=== PATIENT | female | born 1970 | race Caucasian/White ===

== ENCOUNTER 2023-05-27 16:42 | Emergency (ER) | payer OTHER ==
--- OUTSIDE RECORDS SUMMARY | 2023-05-27 16:51 | XMS REPORT | Continuity of Care Document ---
:1970 Author Organization [facility] t Address [address] [place] [address] Care Team Providers Name Role Phone PCP, PATIENT DOES NOT HAVE A Primary Care Physician UnavailCHARITO Negro Attending Clinician Unavailable LINDA DELEON Attending Clinician Unavailable EMILIANO Attending Clinician Unavailable Ky LAIRD, Miguel Angel Cervantes Attending Clinician MEHOP_ELIGIBILITY Attending Clinician Unavailable Radha Waddell Attending Clinician Unknown, Attending Attending Clinician Unavailable RADHA LOUIS Attending Clinician Unavailable Doctor Unassigned, [place] Attending Clinician Unavailable Mela Courtney MA Attending Clinician Unavailable Killian España Attending Clinician Unavailable Noa Rome MA Attending Clinician Unavailable Holly Thurman Attending Clinician [phone] Remy Nunez Attending Clinician [phone] TIMOTHY Attending Clinician Unavailable Anya Tate Attending Clinician [phone] KAROLINE HARRISON Attending Clinician Unavailable Gabriela Mosher Attending Clinician [phone] Song Silveira Attending Clinician Unavailable KARIS CAZARES Attending Clinician Unavailable Debbie Alcocer Anavella Attending Clinician TRISTIAN Ayala Attending Clinician Unavailable ENIO ACKERMAN Attending Clinician Unavailable CHANTE MILLS M.D. Attending Clinician Unavailable INDRA EMANUEL, PHD Attending Clinician Unavailable INDRA ELLIOTT, LULÚ Attending Clinician Unavailable SHAN BURGOS M.D. Attending Clinician Unavailable CHRETIEN_F Admitting Clinician Unavailable MEHOP_ELIGIBILITY Admitting Clinician Unavailable SCHAUBROECK_L Admitting Clinician Unavailable Tara Alcocer Anav Admitting Clinician Unavailable ENIO ACKERMAN Admitting Clinician Unavailable Payers Payer Name Policy Type Policy Number Effective Date Expiration Date S chi MEDICARE PART A AND [id number] 2011 B 00:00:00 [place] [id number] 2011 NOVSetJamS aiHit - 00:00:00 [facility] [place]ICARE [place]: [id number] 2011 NOVITAS aiHit 00:00:00 [place] [id number] 2011 NOVSetJamS aiHit - 00:00:00 [facility] [id number] (MEDICARE REPLACEMENT/ADVANTA GE - PPO) [facility] [id number] Problems Condition Condition Condition Status Onset Resolution Last Treating Co mments Source Name Details Category Date Date Treatment Clinician Date Acute Acute Problem Active [place] sinusitis Sinusitis 8-24 Comm [facility] 00:[facility]: ty [facility] Nasal Nasal Problem Active [place] discharge Discharge 8-24 Comm uni present Present 00:00: ty 00 [facility] Dysuria Dysuria Problem Active [place] 8-24 Communi 00:00: ty [facility] Edema of Edema of Problem Active [place] lower Lower 6-15 [facility] extremity Extremity 00:00: ty 00 [facility] Peripheral Peripheral Problem Active [facility] edema Edema 4-24 Communi 00:00: ty 00 [facility] Genital Genital Problem Active 2021-09 [place] herpes Herpes 1-16 Communi simplex Simplex 00:00: ty 00 [facility] Gastroesop Gastroesop Problem Active 2021-09 [facility] hageal hageal 1-16 Communi reflux Reflux 00:00: ty disease Disease 00 [facility] Motion Motion Problem Active 2021-09 [place] sickness Sickness 0-12 Commun i 00:00: ty 00 [facility] Nausea Nausea Problem Active [place] 9-01 Communi 00:00: ty 00 [facility] Candidiasi Candidiasi Problem Active [facility] s of s of 8-23 Communi vagina Vagina 00:00: ty 00 [facility] Iron Iron Problem Active [place] deficiency Deficiency 5-18 Co mmuni 00:00: ty 00 [facility] Hyponatrem Hyponatrem Problem Active [facility] ia ia 5-18 Communi 00:00: ty 00 [facility] Hypokalemi Hypokalemi Problem Active [facility] a a 5-18 Communi 00:00: ty 00 [facility] RLS RLS Disease Active [facility] (restless (restless 2-15 st legs legs 00:00: Hospita syndrome) syndrome) 00 l Other Other Disease Active 2020-09 [facility] interverte interverte 0-02 He alth bral disc bral disc 00:00: degenerati degenerati 00 on, lumbar on, lumbar region region Dysphagia Dysphagia Disease Active 2020-09 [facility] 0-02 Health 00:00: 00 Functional Functional Problem Active [facility] nausea Nausea 9-21 Communi 00:00: ty 00 [facility] Hyperlipid Hyperlipid Problem Active [facility] emia emia 4-12 Communi 00:00: ty 00 [facility] Hypothyroi Hypothyroi Problem Active [facility] dism dism 3-18 Communi 00:00: ty 00 [facility] Vitamin D Vitamin D Problem Active [facility] peri deficiency Deficiency 3-18 Co mmuni 00:00: ty 00 [facility] Body mass Body Mass Problem Active [facility] peri index 30+ Index 30+ 3-18 Comm uni - obesity - Obesity 00:00: ty 00 [facility] Bipolar Bipolar Problem Active [place] disorder Disorder 3-18 Commun i 00:00: ty 00 [facility] Chronic Chronic Problem Active [place] anxiety Anxiety 3-18 Communi 00:00: ty 00 [facility] Depressive Depressive Problem Active [facility] disorder Disorder 3-18 Commun i 00:00: ty 00 [facility] Obstructiv Obstructiv Problem Active [facility] e sleep e Sleep 3-18 Communi apnea of Apnea of 00:00: ty adult Adult 00 [facility] Essential Essential Problem Active Swe peri hypertensi Hypertensi 3-18 Co mmuni on on 00:00: ty 00 [facility] Multiple Multiple Problem Active [place] gastric Gastric 3-18 Communi ulcers Ulcers 00:00: ty 00 [facility] Sliding Sliding Problem Active [place] hiatus Hiatus 3-18 Communi hernia Hernia 00:00: ty 00 [facility] Fibromyalg Fibromyalg Problem Active [facility] ia ia 3-18 Communi 00:00: ty 00 [facility] History of History of Problem Active [facility] anemia Anemia 3-18 Communi 00:00: ty 00 [facility] Chronic Chronic Disease Active 2018-09 [facility] insomnia insomnia 0-08 st 00:00: Hospita 00 l Dyspnea Dyspnea Disease Active [facility] 7-23 st 00:00: Hospita 00 l Obstructiv Obstructiv Disease Active M ethodi e sleep e sleep 723 st apnea, [facility], [facility] Bipolar II Bipolar II Problem Active M atagor disorder Disorder 5-20 [facility] Pneumonia Pneumonia Disease Active [facility] Essential Essential Disease Active [facility] hypertensi hypertensi 8-01 He alth on on 00:00: 00 Depression Depression Problem Active U T with with [email or web address] Physic i anxiety anxiety ans Chronic Chronic Problem Active [facility] back pain back pain [email or web address] Physici ans Benign Benign Problem Active [facility] essential essential [email or web address] Physici hypertensi hypertensi an s on on No known No known Disease Unive rs active active ity of problems problems [place] [facility] Allergies, Adverse Reactions, Alerts Allergy Allergy Status Severity Reaction(s) Onset Inactive Treating Comm ents Source Name Type Date Date Clinician Ofloxaci Propensi Active Method i n ty to 03-28 st adverse 00:00: Hospita reaction 00 l s to drug Azithrom Drug Active Other (See Not [facility] Intolera Comments) 12-01 effective Lucia kes (Bulk) nce 00:00: Medical 00 Center Ofloxaci Drug Active Hives [facility] Allergy [facility] AZITHROM Allergy Active Med Other [facility] YCIN -28 [facility] (BULK) 00:00: Medical 00 Center OFLOXACI Allergy Active Med Hives [facility] 00[facility] Center Erythrom Allergy Active Unknown [facility] ycin to 10-06 Health substanc 00:00: e 00 Ofloxaci Propensi Active Hives 2016-09 Univer s n ty to 1-10 ity of adverse 00:00: [place] reaction 00 Medical s Branch Macrolid Propensi Active Unknown - 2016-09 Uni vers e ty to See comments 1-10 ity of Antibiot adverse 00:00: [place] ics reaction 00 Medical s Branch OFLOXACI DRUG Active Hives 2016-09 Univers N INGREDI 1-10 ity of 00:00: [place] 00 Medical Branch MACROLID Drug Active Unknown-Cmnt 2016-09 Un david E Class 1-10 ity of ANTIBIOT 00:00: [place] ICS 00 Medical Branch Ofloxaci Allergy Active Rash 2016-09 UT n to 1-10 Health substanc 00:00: e 00 Floxin Allergy Active Moderate Hives [place] to Communi substanc ty e Hospita l Clinics Family History Family Member Diagnosis Comments Start Date Stop Date Source Mother Family history of [facility] diabetes mellitus Father Family history of [facility] essential hypertension [facility] Hy[facility] mother [facility] Paternal Cancer [facility] Paternal Melanoma [facility] Social History Social Habit Start Date Stop Date Quantity Comments Source Sexual orientation 2020-02-19 Heterosexual Meth odist 16:22:17 (finding) Hospital History of tobacco Current smoker [facility] use Hospital History SDOH [facility] Alcohol Std Drinks Medica l Center History SDOH [facility] Alcohol Binge Medical Jasmin ter History SDOH [facility] Alcohol Comment Medical C enter History of Social 2023-01-06 2023-01-[address] function 00:00:00 00:00:00 Hospital Exposure to 2022-07-08 2022-07-18 Not sure [facility]-CoV-2 (event) 00:00:00 09:33:00 [facility] Tobacco Comment 2021-06-06 2021-06-06 + vap [facility] 00:00:00 00:00:00 Tobacco use and 2019-03-28 2019-03-28 Smokeless tobacco Me thodist exposure 00:00:00 00:00:00 non-user Hospital History SDOH 2018-12-01 2018-12-[address] [facility] Alcohol Frequency 00:00:00 00:00:00 [facility] Cigarettes smoked 2018-12-01 2018-12-[address] [facility] current (pack per 00:00:00 00:00:00 [facility] day) - Reported Alcohol intake 2018-12-01 2018-12-01 Current non-drinker [facility] 00:[facility]00 [facility] (finding) Sex Assigned At [address] [facility] kes 00:00:00 00:00:00 [facility] Smoking Status Start Date Stop Date Source Tobacco smoking [facility] xa consumption unknown Medical Bran ch Never smoked tobacco [facility] Ex-smoker 2019-03-28 00:00:00 2019-03-28 [facility] 00:[facility]:00 Medications Ordered Filled Start Stop Current Ordering Indication Dosage Frequency Signature Comments Components Source Medication Medication Date Date Medication? Clinician (SIG) Name Name traZODone Yes 50mg QD Take 1 Method i (DESYREL) 9-11 tablet (50 st 50 MG 00:00: mg total) Hospita tablet 00 by mouth l nightly. levothyroxi 2022- No 50ug QD Take 1 Met hodi ne -17 05-17 tablet (50 st (SYNTHROID, 18:48: 00:00 mcg total) Hospita LEVOXYL) 50 49 :00 by mouth l mcg tablet daily. dexlansopra 2022-0 2022- No 60mg QD Take 1 Met hodi zole 5-17 05-[address] (DEXILANT) 18:48: 00:00 (60 mg [facility] 60 mg 46 :00 total) by l capsule mouth daily. hydroCHLORO 3-0 Yes Q24H daily. Meth vinicio thiazide 5-03 st (HYDRODIURI 11:09: Hospit a L) 12.5 MG 13 l tablet sucralfate 2022-0 Yes 1g Q.25D Take 1 Meth vinicio (CARAFATE) 5-03 tablet (1 st 1 gram 11:07: g total) Hospita tablet 16 by mouth 4 l (four) times a day. promethazin 0 Yes 25mg Q6H Take 1 Meth vinicio e 5-03 tablet (25 st (PHENERGAN) 11:07: mg total) H ospita 25 MG 16 by mouth l tablet every 6 (six) hours as needed for nausea or vomiting. doxepin HCl 0 Yes 20mg QD Take 20 mg [facility] (DOXEPIN 5-[address] ORAL) 11:07: daily. Hospita 16 l pramipexole 0 Yes TAKE 1 Meth vinicio (MIRAPEX) 1 5-[address] MG tablet 00:00: MOUTH Hospita 00 THREE l TIMES DAILY EVERY 8 HOURS traZODone 2022-0 2022- No 50mg QD Take 1 Metho di (DESYREL) 5-03 09-11 tablet (50 st 50 MG 00:00: 00:00 mg total) Hospit a tablet 00 :00 by mouth l nightly. traZODone 3-0 2022- No 50mg QD Take 1 Metho di (DESYREL) 4-20 05-03 tablet (50 st 50 MG 00:00: 00:00 mg total) Hospit a tablet 00 :00 by mouth l nightly. traZODone 3-0 3- No TAKE 1 Metho di (DESYREL) 3-30 04-20 TABLET(50 st 50 MG 00:00: 00:00 MG) BY Hospita tablet 00 :00 MOUTH l EVERY NIGHT traZODone 2022- No TAKE 1 Metho di (DESYREL) 11-05- TABLET(50 st 50 MG 00:00: 00:00 MG) BY Hospita tablet 00 :00 MOUTH l EVERY NIGHT traZODone 2022- No TAKE 1 Metho di (DESYREL) 10-07- TABLET(50 st 50 MG 00:00: 00:00 MG) BY Hospita tablet 00 :00 MOUTH l EVERY NIGHT pramipexole 2022- No TAKE 1 Met hodi (MIRAPEX) 1 09-28 05-[address] MG tablet 00:00: 00:00 MOUTH Hospit a 00 :00 THREE l TIMES DAILY EVERY 8 HOURS traZODone 2022- No TAKE 1 Metho di (DESYREL) 09-15 TABLET(50 st 50 MG 00:00: 00:00 MG) BY Hospita tablet 00 :00 MOUTH l EVERY NIGHT zolpidem 2021-09- No 10mg QD Place 10 Meth vinicio (Edluar) 10 10-12 05-[address] mg tablet, 00:00: 00:00 the tongue Hospita sublingual 00 :00 daily. l traZODone 2021-09- No 50mg QD Take 1 Metho di (DESYREL) 10-12 01- tablet (50 st 50 MG 00:00: 00:00 mg total) Hospit a tablet 00 :00 by mouth l nightly for 30 days. dexamethaso 2021-09- No [id number] 8mg U nivers ne 09-17 ity of (DECADRON) 16:45: 16:03 [place] injection 8 00 :00 Medical mg Branch dexamethaso 2021-09- No [id number] 8mg 8 mg, Univers ne 09-17- Intramuscu ity of (DECADRON) 16:45: 16:03 lar, ONCE, [place] injection 8 00 :00 1 dose, On Me dical mg Sat Branch 07/18/22 at 1045, Routine semaglutide 2021-09 Yes inject Univ ers (OZEMPIC) 09-17 under the ity o f 0.25 mg or 09:55: skin. [place] 0.5 mg(2 33 Medical mg/1.5 mL) Branch PnIj amoxicillin 2021-09- No [id number] 1{tbl} Take 1 Univers -clavulanat 09-17 tablet by it y of e 00:00: 05:59 mouth in [place] (AUGMENTIN) 00 :00 the Medical 875-125 mg morning Branch per tablet and 1 tablet in the evening. Do all this for 10 days. pramipexole 2021-09- No TAKE 1 Met hodi (MIRAPEX) 1 018 09-[address] MG tablet 00:00: 00:00 MOUTH Hospit a 00 :00 THREE l TIMES DAILY EVERY 8 HOURS eszopiclone 2021- No TAKE 1 Met hodi (LUNESTA) 3 05-12 12 TABLET(3 st mg tablet 00:00: 00:00 MG) BY Hospi ta 00 :00 MOUTH l EVERY NIGHT AT BEDTIME pramipexole 2021- No TAKE 1 Met hodi (MIRAPEX) 1 03-[address] MG tablet 00:00: 00:00 MOUTH Hospit a 00 :00 THREE l TIMES DAILY( EVERY EIGHT HOURS) sucralfate 2020-09 Yes TAKE 1 UT (Carafate) 0-01 TABLET BY Heal th 1 g tablet 13:26: MOUTH 43 EVERY 8 HOURS BEFORE A MEAL AND 1 TABLET EVERY NIGHT AT BEDTIME dexlansopra 2020-09 Yes UT zole 0-01 Health (Dexilant) 13:26: [address] 43 capsule doxepin 2020-09 Yes 1{capsu QD 1 capsule UT (SINEquan) 0-01 le} 1 (one) Health 50 MG 13:26: time each capsule 43 day. pramipexole 2020-09 Yes pramipexol UT (Mirapex) 1 0-01 e 1 mg Health MG tablet 13:26: tablet 43 TAKE 1 TABLET BY MOUTH THREE TIMES DAILY DIRECTED clonazePAM 2020-09 Yes clonazepam U T (KlonoPIN) 0-01 1 mg Health 1 MG tablet 13:26: tablet 43 TAKE 1/2 TO 1 TABLET BY MOUTH TWICE DAILY NEEDED FOR ANXIETY sucralfate 2020-09 Yes TAKE 1 UT (Carafate) 0-01 TABLET BY [facility] 1 g tablet 13:26: MOUTH 43 EVERY 8 HOURS BEFORE A MEAL AND 1 TABLET EVERY NIGHT AT BEDTIME dexlansopra 2020-09 Yes UT zole 0-01 Health (Dexilant) 13:26: [address] 43 capsule doxepin 2020-09 Yes 1{capsu QD 1 capsule UT (SINEquan) 0-01 le} 1 (one) Health 50 MG 13:26: time each capsule 43 day. pramipexole 2020-09 Yes pramipexol UT (Mirapex) 1 0-01 e 1 mg Health MG tablet 13:26: tablet 43 TAKE 1 TABLET BY MOUTH THREE TIMES DAILY DIRECTED clonazePAM 2020-09 Yes clonazepam U T (KlonoPIN) 0-01 1 mg Health 1 MG tablet 13:26: tablet 43 TAKE 1/2 TO 1 TABLET BY MOUTH TWICE DAILY NEEDED FOR ANXIETY sucralfate 2020-09 Yes TAKE 1 UT (Carafate) 0-01 TABLET BY [facility] 1 g tablet 13:26: MOUTH 43 EVERY 8 HOURS BEFORE A MEAL AND 1 TABLET EVERY NIGHT AT BEDTIME dexlansopra 2020-09 Yes UT zole 0-01 Health (Dexilant) 13:26: [address] 43 capsule doxepin 2020-09 Yes 1{capsu QD 1 capsule UT (SINEquan) 0-01 le} 1 (one) Health 50 MG 13:26: time each capsule 43 day. pramipexole 2020-09 Yes pramipexol UT (Mirapex) 1 0-01 e 1 mg Health MG tablet 13:26: tablet 43 TAKE 1 TABLET BY MOUTH THREE TIMES DAILY DIRECTED clonazePAM 2020-09 Yes clonazepam U T (KlonoPIN) 0-01 1 mg Health 1 MG tablet 13:26: tablet 43 TAKE 1/2 TO 1 TABLET BY MOUTH TWICE DAILY NEEDED FOR ANXIETY sucralfate 2020-09 Yes TAKE 1 UT (Carafate) 0-01 TABLET BY [facility] 1 g tablet 13:26: MOUTH 43 EVERY 8 HOURS BEFORE A MEAL AND 1 TABLET EVERY NIGHT AT BEDTIME dexlansopra 2020-09 Yes UT zole 0-01 Health (Dexilant) 13:26: [address] 43 capsule doxepin 2021-1 Yes 1{capsu QD 1 capsule UT (SINEquan) 0-01 le} 1 (one) Health 50 MG 13:26: time each capsule 43 day. pramipexole 2020-09 Yes pramipexol UT (Mirapex) 1 0-01 e 1 mg Health MG tablet 13:26: tablet 43 TAKE 1 TABLET BY MOUTH THREE TIMES DAILY DIRECTED clonazePAM 2020-09 Yes clonazepam U T (KlonoPIN) 0-01 1 mg Health 1 MG tablet 13:26: tablet 43 TAKE 1/2 TO 1 TABLET BY MOUTH TWICE DAILY NEEDED FOR ANXIETY Vortioxetin 2020-09 Yes Trintellix UT e HBr 0-01 20 mg Health (Trintellix 13:26: tablet ) 20 MG 42 TAKE 1 tablet TABLET BY tablet MOUTH DAILY promethazin 2020-09 Yes UT e 0-01 Health (Phenergan) 13:26: 25 MG 42 tablet triamterene 2020-09 Yes triamteren UT -hydroCHLOR 0-01 e 37.5 Health Othiazide 13:26: mg-hydroch (Dyazide) 42 lorothiazi 37.5-25 MG de 25 mg capsule capsule Vortioxetin 2020-09 Yes Trintellix UT e HBr 0-01 20 mg Health (Trintellix 13:26: tablet ) 20 MG 42 TAKE 1 tablet TABLET BY tablet MOUTH DAILY promethazin 2020-09 Yes UT e 0-01 Health (Phenergan) 13:26: 25 MG 42 tablet triamterene 2020-09 Yes triamteren UT -hydroCHLOR 0-01 e 37.5 Health Othiazide 13:26: mg-hydroch (Dyazide) 42 lorothiazi 37.5-25 MG de 25 mg capsule capsule Vortioxetin 2020-09 Yes Trintellix UT e HBr 0-01 20 mg Health (Trintellix 13:26: tablet ) 20 MG 42 TAKE 1 tablet TABLET BY tablet MOUTH DAILY promethazin 2020-09 Yes UT e 0-01 Health (Phenergan) 13:26: 25 MG 42 tablet triamterene 2020-09 Yes triamteren UT -hydroCHLOR 0-01 e 37.5 Health Othiazide 13:26: mg-hydroch (Dyazide) 42 lorothiazi 37.5-25 MG de 25 mg capsule capsule Vortioxetin 2020-09 Yes Trintellix UT e HBr 0-01 20 mg Health (Trintellix 13:26: tablet ) 20 MG 42 TAKE 1 tablet TABLET BY tablet MOUTH DAILY promethazin 2020-09 Yes UT e 0-01 Health (Phenergan) 13:26: 25 MG 42 tablet triamterene 2020-09 Yes triamteren UT -hydroCHLOR 0-01 e 37.5 Health Othiazide 13:26: mg-hydroch (Dyazide) 42 lorothiazi 37.5-25 MG de 25 mg capsule capsule pregabalin Yes TAKE 1 UT (Lyrica) 50 9-10 CAPSULE BY He alth MG capsule 00:00: MOUTH 00 THREE TIMES DAILY DIRECTED pregabalin Yes TAKE 1 UT (Lyrica) 50 9-10 CAPSULE BY He alth MG capsule 00:00: MOUTH 00 THREE TIMES DAILY DIRECTED pregabalin Yes TAKE 1 UT (Lyrica) 50 9-10 CAPSULE BY He alth MG capsule 00:00: MOUTH 00 THREE TIMES DAILY DIRECTED pregabalin Yes TAKE 1 UT (Lyrica) 50 9-10 CAPSULE BY He alth MG capsule 00:00: MOUTH 00 THREE TIMES DAILY DIRECTED metoclopram Yes UT aletha 8-28 [facility] ([facility]) 10 00:00: MG tablet 00 metoclopram Yes UT aletha 8-28 [facility] ([facility]) 10 00:00: MG tablet 00 metoclopram Yes UT aletha 8-28 [facility] ([facility]) 10 00:00: MG tablet 00 metoclopram 0 Yes UT aletha 8-28 [facility] ([facility]) 10 00:00: MG tablet 00 levothyroxi Yes 50ug QD Take 50 UT ne 8-17 mcg by Health (Synthroid, 00:00: mouth 1 Levoxyl) 50 00 (one) time MCG tablet each day. levothyroxi Yes 50ug QD Take 50 UT ne 8-17 mcg by Health (Synthroid, 00:00: mouth 1 Levoxyl) 50 00 (one) time MCG tablet each day. levothyroxi Yes 50ug QD Take 50 UT ne 8-17 mcg by Health (Synthroid, 00:00: mouth 1 Levoxyl) 50 00 (one) time MCG tablet each day. levothyroxi Yes 50ug QD Take 50 UT ne 8-17 mcg by Health (Synthroid, 00:00: mouth 1 Levoxyl) 50 00 (one) time MCG tablet each day. eszopiclone Yes TAKE 1 UT (Lunesta) 3 8-05 TABLET BY Hea lth MG tablet 00:00: MOUTH 00 EVERY EVENING IMMEDIATEL Y BEFORE BEDTIME eszopiclone 0 Yes TAKE 1 UT (Lunesta) 3 8-05 TABLET BY Hea lth MG tablet 00:00: MOUTH 00 EVERY EVENING IMMEDIATEL Y BEFORE BEDTIME eszopiclone 0 Yes TAKE 1 UT (Lunesta) 3 8-05 TABLET BY Hea lth MG tablet 00:00: MOUTH 00 EVERY EVENING IMMEDIATEL Y BEFORE BEDTIME eszopiclone 0 Yes TAKE 1 UT (Lunesta) 3 8-05 TABLET BY Hea lth MG tablet 00:00: MOUTH 00 EVERY EVENING IMMEDIATEL Y BEFORE BEDTIME Brexpiprazo 2020-0 Yes 1 (one) UT le 5-15 time each Health (Rexulti) 2 00:00: day at the MG tablet 00 same time. Brexpiprazo 2020-0 Yes 1 (one) UT le 5-15 time each Health (Rexulti) 2 00:00: day at the MG tablet 00 same time. Brexpiprazo 2020-0 Yes 1 (one) UT le 5-15 time each Health (Rexulti) 2 00:00: day at the MG tablet 00 same time. Brexpiprazo 2020-0 Yes 1 (one) UT le 5-15 time each Health (Rexulti) 2 00:00: day at the MG tablet 00 same time. desvenlafax 2018-0 Yes 100mg QD Take [address] ine 4-02 mg by [facility] succinate 19:48: mouth Medical (PRISTIQ) 25 daily. Center 100 MG 24 hr tablet lamoTRIgine 2018-0 Yes 200mg Q.5D Take [address] (LAMICTAL) 4-02 mg by [facility] 200 MG 19:48: mouth 2 Medical tablet 25 (two) Center times daily. doxepin 20190 Yes 10mg Q.5D Take [address] (SINEQUAN) 4-02 by mouth 2 [place] 10 MG 19:48: (two) Medical capsule 25 times Center daily. busPIRone 2019-0 Yes 10mg Q.5D Take [address] (BUSPAR) 10 4-02 by mouth 2 Lucia kes MG tablet 19:48: (two) Medical 25 times Center daily. dexlansopra 2019-0 Yes 60mg QD Take [address] zole 60 mg 4-02 by mouth [facility] capsule 19:48: daily. Medical 25 Center pregabalin 0 Yes 100mg Q.[id number] Take [address] (LYRICA) 4-02 [id number] mg by Luke s 100 MG 19:48: 3D mouth 3 Medical capsule 25 (three) Center times daily. meloxicam 0 Yes 15mg QD Take [address] (MOBIC) 15 4-02 by mouth [facility]ukes MG tablet 19:48: daily. Medica l 25 Dawes levothyroxi 0 Yes 50ug Take [address] ne 4-02 mcg by Carolee (SYNTHROID, 19:48: mouth Medic al LEVOTHROID) 25 Every Center 50 MCG morning on tablet an empty stomach. triamterene 0 Yes 1{capsu QD Take [address] -hydroCHLOR 4-02 le} capsule by Lucia garrett Othiazide 19:48: mouth Medical (MAXZIDE-25 25 every Center ) 37.5-25 morning. mg per tablet varenicline 0 Yes 1mg Q.5D Take [address] (CHANTIX) 1 4-02 by mouth 2 Lucia kes mg tablet 19:48: (two) Medical 25 times Center daily Give with meals and with a full glass of water. . pramipexole 2019-0 Yes .5mg Q.[id number] Take 0.[address] (MIRAPEX) 4-02 [id number] mg by [place] es 0.5 MG 19:48: 3D mouth 3 Medical tablet 25 (three) Center times daily. zolpidem 0 Yes 10mg QD Take [address] (AMBIEN) 10 4-02 by mouth Luke s mg tablet 19:48: nightly. Medi codi 25 Center zaleplon 2019-0 Yes 10mg QD Take [address] (SONATA) 10 4-02 by mouth Luke s MG capsule 19:48: nightly. Med ical 25 Center traMADol 2018-0 Yes 50mg Take [address] (ULTRAM) 50 4-02 by mouth Luke s mg tablet 19:48: every 6 Medic al 25 (six) Center hours as needed for Pain. SUMAtriptan 2019-0 Yes 100mg Take [address] (IMITREX) 4-02 mg by [facility] 100 MG 19:48: mouth once Medic al tablet 25 as needed Center for Headaches. promethazin 2019-0 Yes 25mg Take [address] e 4-02 by mouth [facility] (PHENERGAN) 19:48: every 6 Med ical 25 MG 25 (six) Center tablet hours as needed for Nausea. desvenlafax 2018-0 Yes 100mg QD Take [address] ine 4-02 mg by [facility]ukes succinate 19:48: mouth Medical (PRISTIQ) 25 daily. Center 100 MG 24 hr tablet lamoTRIgine 2018-0 Yes 200mg Q.5D Take [address] (LAMICTAL) 4-02 mg by [facility]ukes 200 MG 19:48: mouth 2 Medical tablet 25 (two) Center times daily. doxepin 2018-0 Yes 10mg Q.5D Take [address] (SINEQUAN) 4-02 by mouth 2 [place] es 10 MG 19:48: (two) Medical capsule 25 times Center daily. busPIRone 2019-0 Yes 10mg Q.5D Take [address] (BUSPAR) 10 4-02 by mouth 2 Lucia kes MG tablet 19:48: (two) Medical 25 times Center daily. dexlansopra 2019-0 Yes 60mg QD Take [address] zole 60 mg 4-02 by mouth [facility] capsule 19:48: daily. Medical 25 Center pregabalin 2019-0 Yes 100mg Q.[id number] Take [address] (LYRICA) 4-02 [id number] mg by Luke s 100 MG 19:48: 3D mouth 3 Medical capsule 25 (three) Center times daily. meloxicam 2019-0 Yes 15mg QD Take [address] [facility] (MOBIC) 15 4-02 by [facility] tablet 19:48: daily. Medica l 25 [place] levothyroxi Yes 50ug Take [address] [facility] ne 4-02 mcg by [facility] (SYNTHROID, 19:48: mouth Medic al LEVOTHROID) 25 Every Center 50 MCG morning on tablet an empty stomach. triamterene Yes 1{capsu QD Take [address] -hydroCHLOR 4-02 le} capsule by Lucia kes Othiazide 19:48: mouth Medical (MAXZIDE-25 25 every Center ) 37.5-25 morning. mg per tablet varenicline Yes 1mg Q.5D Take [address] [facility] (CHANTIX) 1 4-02 by mouth 2 Lucia kes mg tablet 19:48: (two) Medical 25 times Center daily Give with meals and with a full glass of water. . pramipexole Yes .5mg [id number] Take 0.[address] [facility] (MIRAPEX) 4-02 [id number] mg by [place] es 0.5 MG 19:48: 3D mouth 3 Medical tablet 25 (three) Center times daily. zolpidem Yes 10mg QD Take [address] [facility] (AMBIEN) 10 4-02 by mouth [facility] mg tablet 19:48: nightly. Medi codi 25 [place] zaleplon Yes 10mg QD Take [address] [facility] (SONATA) 10 4-02 by mouth [facility] MG capsule 19:48: nightly. Med ical 25 [place] traMADol Yes 50mg Take [address] [facility] (ULTRAM) 50 4-02 by mouth [facility] mg tablet 19:48: every 6 Medic al 25 (six) Center hours as needed for Pain. SUMAtriptan Yes 100mg Take [address] [facility] (IMITREX) 4-02 mg by [facility] 100 MG 19:48: mouth once Medic al tablet 25 as needed Center for Headaches. promethazin 0 Yes 25mg Take [address] [facility] e 4-02 by mouth [facility] (PHENERGAN) 19:48: every 6 Med ical 25 MG 25 (six) Center tablet hours as needed for Nausea. enoxaparin 0 Yes 40mg Q24H Inject 0.[address] (LOVENOX) 4-02 mLs (40 mg [facility] 40 mg/0.4 00:00: total) Medica l mL [facility]. enoxaparin Yes 40mg Q24H Inject 0.[address] (LOVENOX) 4-02 mLs (40 mg [facility] 40 mg/0.4 00:00: total) Medica l mL Sy[facility] daily. PRISTIQ 100 2016-09 Yes 100mg Take 100 U nivers mg 24 hr 0-20 mg by ity of tablet 00:00: mouth [place] 00 daily. Medical Branch PRISTIQ 100 2016-09 Yes 100mg Take 100 U [facility]ivers mg 24 hr 0-20 mg by ity of tablet 00:00: mouth [place] 00 daily. Medical Branch doxepin 10 2016-09 Yes TAKE 2 Unive rs mg capsule 0-15 CAPSULES ity o f 00:00: BY MOUTH [place] 00 AT BEDTIME Medical ORALLY 30 Branch DAY(S) doxepin 2016-09 Yes TAKE 2 [facility] mg capsule 0-15 CAPSULES ity o f 00:00: BY MOUTH [place] 00 AT BEDTIME Medical ORALLY 30 Branch DAY(S) triamterene 2016-09 Yes 1{tbl} Take 1 [facility] -hydrochlor 0-01 tablet by ity of othiazid 00:00: mouth [place] 37.5-25 mg 00 daily. Medical tablet [facility] 2016-09 Yes 1{tbl} Take 1 [facility] -hydrochlor 0-01 tablet by ity of othiazid 00:00: mouth [place] 37.5-25 mg 00 daily. Medical tablet Branch [facility] 2016-09- No 1{capsu Take 1 Methodi -hydrochlor 0-01 05-17 le} capsule by s t othiazid 00:00: 00:00 mouth. Hospit a (MAXZIDE-25 00 :00 l ) 37.5-25 mg per tablet baclofen Yes TAKE 1 Univ ers mg tablet 8-22 TABLET BY ity o f 00:00: MOUTH 3 [place] 00 TIMES A Medical DAY WITH Branch FOOD OR MILK baclofen 20 Yes TAKE 1 Univ ers mg tablet 8-22 TABLET BY ity o f 00:00: MOUTH 3 [place] 00 TIMES A Medical DAY WITH Branch FOOD OR MILK cefuroxime cefuroxime No cefuroxime [place] axetil 250 axetil 250 axetil 250 da mg tablet mg tablet [facility] Chantix 1 Chantix 1 No Chantix 1 [place] mg tablet mg tablet mg tablet da [facility] Dexilant 60 Dexilant 60 No Dexilant [place] mg capsule, mg capsule, 60 mg da delayed delayed capsule, [facility] release release delayed al release [facility] doxepin 10 doxepin 10 No doxepin 10 [place] mg capsule mg capsule mg capsule da Take 2 Take 2 Take 2 [facility] capsules capsules capsules al every day every day every day Health by oral by oral by oral Outrea c route at route at route at h bedtime. bedtime. bedtime. Pro gram doxepin 50 doxepin 50 No 1capsul Q1D doxepin 50 [place] mg capsule mg capsule e(s) mg capsule da Take 1 Take 1 Take 1 [facility] capsule capsule capsule al every day every day every day Health by oral by oral by oral Outrea c route at route at route at h bedtime. bedtime. bedtime. Pro gram furosemide furosemide No furosemide [place] 20 mg 20 mg 20 mg da tablet tablet tablet [facility] hydrochloro hydrochloro No hydrochlor [place] thiazide 25 thiazide 25 othiazide da mg tablet mg tablet 25 mg [facility] copy holder tablet [facility] ketoconazol ketoconazol No ketoconazo [place] e 2 % e 2 % le 2 % da topical topical topical [facility] p cream cream cream [facility] Program Lamictal Lamictal No 1 BID Lamictal [place] 200 mg 200 mg 200 mg da tablet Take tablet Take tablet [facility] 1 tablet 1 tablet Take 1 al twice a day twice a day tablet Health by oral by oral twice a Outrea c route in route in day by h the the oral route Program morning. morning. in the morning. Latuda 40 Latuda 40 No Latuda 40 [place] mg tablet mg tablet mg tablet da [facility] Outre[facility] Program levothyroxi levothyroxi No levothyrox [place] ne 50 mcg ne 50 mcg ine 50 mcg da tablet tablet tablet [facility] Lidocaine Lidocaine No Lidocaine [place] Viscous 2 % Viscous 2 % Viscous 2 da mucosal mucosal % mucosal [facility] copy holder solution solution solution [facility] Outreac h Program lorazepam 1 lorazepam 1 No lorazepam [place] mg tablet mg tablet 1 mg da tablet [facility] Program meloxicam meloxicam No meloxicam [place] 15 mg 15 mg 15 mg da tablet tablet tablet [facility] Program meloxicam meloxicam No meloxicam [place] 7.5 mg 7.5 mg 7.5 mg da tablet tablet tablet [facility] metolazone metolazone No metolazone [place] 2.5 mg 2.5 mg 2.5 mg da tablet tablet tablet [facility] naproxen naproxen No naproxen [place] 500 mg 500 mg 500 mg da tablet tablet tablet [facility] nystatin nystatin No nystatin [place] 100,000 100,000 100,000 da unit/gram unit/gram unit/gram [facility] topical topical topical al cream cream cream Health Outreac h Program ondansetron ondansetron No ondansetro [place] 4 mg 4 mg n 4 mg da disintegrat disintegrat disintegra [facility] ing tablet ing tablet ting al tablet Health Outreac h Program ondansetron ondansetron No ondansetro [place] HCl 4 mg HCl 4 mg n HCl 4 mg d a tablet tablet tablet [facility] Program potassium potassium No potassium [place] chloride ER chloride ER chloride da 20 mEq 20 mEq ER 20 mEq [facility] p tablet,exte tablet,exte tablet,ext al nded nded ended Health release(par release(par release(pa Outreac t/cryst) t/cryst) rt/cryst) h Program potassium potassium No potassium [place] chloride ER chloride ER chloride da 8 mEq 8 mEq ER 8 mEq [facility] tablet,exte tablet,exte tablet,ext al nded nded ended Health release release release Outrea c h Program pramipexole pramipexole No pramipexol [place] 0.5 mg 0.5 mg e 0.5 mg da tablet tablet tablet [facility] Program pramipexole pramipexole No pramipexol [place] 1 mg tablet 1 mg tablet e 1 mg da tablet [facility] Outreac h Program prednisolon prednisolon No prednisolo [place] e acetate 1 e acetate 1 ne acetate da % eye % eye 1 % eye [facility] drops,suspe drops,suspe drops,susp al nsion nsion ension [facility] Outreac h Program prednisone prednisone No prednisone [place] 10 mg 10 mg 10 mg da tablet tablet tablet [facility] Outreac [facility] Program pregabalin pregabalin No pregabalin [place] 100 mg 100 mg 100 mg da capsule capsule capsule [facility] Outre[facility] Program pregabalin pregabalin No pregabalin [place] 50 mg 50 mg 50 mg da capsule capsule capsule [facility] p [facility] Outreac [facility] Program Pristiq 100 Pristiq 100 No 1 Q1D Pristiq [place] mg mg 100 mg da tablet,exte tablet,exte tablet,ext [facility] nded nded ended al release release release Health Take 1 Take 1 Take 1 Outreac tablet tablet tablet h every day every day every day Program by oral by oral by oral route in route in route in the the the morning. morning. morning. promethazin promethazin No promethazi [place] e 25 mg e 25 mg ne 25 mg da tablet tablet tablet [facility] Outreac h Program spironolact spironolact No spironolac [place] one 25 mg one 25 mg tone 25 mg da tablet tablet tablet [facility] Outreac h Program sucralfate sucralfate No sucralfate [place] 1 gram 1 gram 1 gram da tablet tablet tablet [facility] Outreac h Program sumatriptan sumatriptan No sumatripta [place] 100 mg 100 mg n 100 mg da tablet tablet tablet [facility] Outreac h Program Symbicort Symbicort No Symbicort [place] 160 mcg-4.5 160 mcg-4.5 160 d a mcg/actuati mcg/actuati mcg-4.5 [facility] on HFA on HFA mcg/actuat al aerosol aerosol ion HFA Health inhaler inhaler aerosol Outrea c inhaler h Program tramadol 50 tramadol 50 No tramadol [place] mg tablet mg tablet 50 mg da tablet [facility] Outreac [facility] Program triamterene triamterene No triamteren [place] 37.5 37.5 e 37.5 da mg-hydrochl mg-hydrochl mg-hydroch [facility] orothiazide orothiazide lorothiazi al 25 mg 25 mg de 25 mg Health capsule capsule capsule Outrea c h Program triamterene triamterene No triamteren [place] 37.5 37.5 e 37.5 da mg-hydrochl mg-hydrochl mg-hydroch [facility] orothiazide orothiazide lorothiazi al 25 mg 25 mg de 25 mg Health tablet tablet tablet Outreac h Program valacyclovi valacyclovi No valacyclov [place] r 1 gram r 1 gram ir 1 gram da tablet tablet tablet [facility] Outre[facility] Program Chantix Chantix Yes UT TABS TABS Physici ans Imitrex 100 Imitrex 100 Yes U T MG Oral MG Oral Physici Tablet Tablet ans Levothyroxi Levothyroxi Yes U T ne Sodium ne Sodium Physi ci TABS TABS ans Dexilant Dexilant Yes UT CPDR CPDR Physici ans [place] 100 [place] 100 Yes UT MG Oral MG Oral Physici Capsule Capsule ans Magnesium Magnesium Yes UT 400 MG Oral 400 MG Oral P hysici Tablet Tablet ans Promethazin Promethazin Yes U T e HCl - 25 e HCl - 25 Phy sici MG Oral MG Oral ans Tablet Tablet Triamterene Triamterene Yes U T -HCTZ -HCTZ Physici 37.5-25 MG 37.5-25 MG ans Oral Tablet Oral Tablet LaMICtal LaMICtal Yes UT TABS TABS Physici ans Doxepin HCl Doxepin HCl Yes U T CONC CONC Physici ans Pristiq 100 Pristiq 100 Yes U T MG Oral MG Oral Physici Tablet Tablet ans Extended Extended Release 24 Release 24 Hour Hour Amitriptyli Amitriptyli Yes U T ne HCl - 50 ne HCl - 50 P hysici MG Oral MG Oral ans Tablet Tablet Meloxicam Meloxicam Yes UT 15 MG Oral 15 MG Oral Phy sici Tablet Tablet ans Pramipexole Pramipexole Yes U T Dihydrochlo Dihydrochlo P hysici ride 0.5 MG ride 0.5 MG a ns Oral Tablet Oral Tablet Zaleplon 10 Zaleplon 10 Yes U T MG Oral MG Oral Physici Capsule Capsule ans Ambien 10 Ambien 10 Yes UT MG Oral MG Oral Physici Tablet Tablet ans hydrocodone hydrocodone No hydrocodon [place] 10 10 e 10 Communi mg-acetamin mg-acetamin mg-acetami ty ophen 325 ophen 325 nophen 325 Hospita mg tablet mg tablet mg tablet l TK 1 T PO TK 1 T PO TK 1 T PO Clinics BID PRN FOR BID PRN FOR BID PRN 15 DAYS. 15 DAYS. FOR 15 DAYS. ibuprofen ibuprofen No ibuprofen [place] 800 mg 800 mg 800 mg Communi tablet TK 1 tablet TK 1 tablet TK ty T PO TID T PO TID 1 T PO TID H ospita WITH FOOD WITH FOOD WITH FOOD l Clinics levothyroxi levothyroxi No levothyrox [place] ne 50 mcg ne 50 mcg ine 50 mcg Communi tablet TAKE tablet TAKE tablet ty 1 TABLET BY 1 TABLET BY TAKE 1 Hospita MOUTH EVERY MOUTH EVERY TABLET BY l DAY DAY MOUTH Clinics EVERY DAY metoclopram metoclopram No metoclopra [place] aletha 10 mg aletha 10 mg mide 10 mg Communi tablet TAKE tablet TAKE tablet ty 1 TABLET BY 1 TABLET BY TAKE 1 Hospita MOUTH MOUTH TABLET BY l BEFORE BEFORE MOUTH Clinics MEALS AND MEALS AND BEFORE AT BEDTIME. AT BEDTIME. MEALS AND AT BEDTIME. nystatin nystatin No nystatin Swe peri 100,000 100,000 100,000 Commun i unit/gram unit/gram unit/gram ty topical topical topical Hospit a cream APPLY cream APPLY cream l TOPICALLY TOPICALLY APPLY Clin ics TO THE TO THE TOPICALLY AFFECTED AFFECTED TO THE AREA TWICE AREA TWICE AFFECTED DAILY FOR 7 DAILY FOR 7 AREA TWICE DAYS DAYS DAILY FOR DIRECTED DIRECTED 7 DAYS DIRECTED pramipexole pramipexole No pramipexol [place] 1 mg tablet 1 mg tablet e 1 mg Communi TAKE 1 TAKE 1 tablet ty TABLET BY TABLET BY TAKE 1 Hos [facility]anna MOUTH THREE MOUTH THREE TABLET BY l TIMES DAILY TIMES DAILY MOUTH Clinics DIRECTED DIRECTED THREE TIMES DAILY DIRECTED pregabalin pregabalin No pregabalin [place] 50 mg 50 mg 50 mg Communi capsule capsule capsule ty TAKE 1 TAKE 1 TAKE 1 Hospita CAPSULE BY CAPSULE BY CAPSULE BY l MOUTH THREE MOUTH THREE MOUTH Clinics TIMES DAILY TIMES DAILY THREE DIRECTED DIRECTED TIMES DAILY DIRECTED promethazin promethazin No promethazi [place] e 25 mg e 25 mg ne 25 mg Commu ni tablet TAKE tablet TAKE tablet ty 1 TABLET BY 1 TABLET BY TAKE 1 Hospita MOUTH TWICE MOUTH TWICE TABLET BY l DAILY DAILY MOUTH Clinics TWICE DAILY Rexulti 2 Rexulti 2 No Rexulti 2 [place] mg tablet mg tablet mg tablet Communi TAKE 1 TAKE 1 TAKE 1 ty TABLET BY TABLET BY TABLET BY Hospita MOUTH EVERY MOUTH EVERY MOUTH l NIGHT AT NIGHT AT EVERY Clinic s BEDTIME BEDTIME NIGHT AT BEDTIME sucralfate sucralfate No sucralfate [place] 1 gram 1 gram 1 gram Communi tablet TAKE tablet TAKE tablet ty 1 TABLET BY 1 TABLET BY TAKE 1 Hospita MOUTH MOUTH TABLET BY l BEFORE BEFORE MOUTH Clinics MEALS AND MEALS AND BEFORE AT BEDTIME AT BEDTIME MEALS AND AT BEDTIME sumatriptan sumatriptan No sumatripta [place] 100 mg 100 mg n 100 mg Communi tablet TK 1 tablet TK 1 tablet TK ty T PO ONCE T PO ONCE 1 T PO Hos hanna PRN PRN ONCE PRN l Clinics tramadol 50 tramadol 50 No tramadol [place] mg tablet mg tablet 50 mg Comm uni TK 1 T PO Q TK 1 T PO Q tablet TK ty 6 H PRN 6 H PRN 1 T PO Q 6 Hos hanna H PRN l Clinics triamterene triamterene No triamteren [place] 37.5 37.5 e 37.5 Communi mg-hydrochl mg-hydrochl mg-hydroch ty orothiazide orothiazide lorothiazi Hospita 25 mg 25 mg de 25 mg l tablet TAKE tablet TAKE tablet Clinics 1 TABLET BY 1 TABLET BY TAKE 1 MOUTH DAILY MOUTH DAILY TABLET BY AROUND THE AROUND THE MOUTH CLOCK CLOCK DAILY AROUND THE CLOCK Trintellix Trintellix No Trintellix [place] 10 mg 10 mg 10 mg Communi tablet TAKE tablet TAKE tablet ty 1 TABLET BY 1 TABLET BY TAKE 1 Hospita MOUTH DAILY MOUTH DAILY TABLET BY l MOUTH Clinics DAILY acetaminoph acetaminoph No 1 Q8H acetaminop [place] en 300 en 300 hen 300 Communi mg-codeine mg-codeine mg-codeine ty 30 mg 30 mg 30 mg Hospita tablet Take tablet Take tablet l 1 tablet 1 tablet Take 1 Clini cs every 8 every 8 tablet hours by hours by every 8 oral route oral route hours by as needed. as needed. oral route as needed. butalbital- butalbital- No butalbital [place] acetaminoph acetaminoph -acetamino Communi en-caffeine en-caffeine phen-caffe ty 50 mg-325 50 mg-325 ine 50 Hos hanna mg-40 mg mg-40 mg mg-325 l tablet TK 1 tablet TK 1 mg-40 mg Clinics T PO QID T PO QID tablet TK PRN. PRN. 1 T PO QID PRN. cholecalcif cholecalcif No cholecalci [place] [facility] ferol Communi (vitamin (vitamin (vitamin ty D3) 125 mcg D3) 125 mcg D3) 125 Hospita (5,000 (5,000 mcg (5,000 l unit) unit) unit) Clinics capsule TK capsule TK capsule TK 1 GELCAP PO 1 GELCAP PO 1 GELCAP ONCE D ONCE D PO ONCE D clonazepam clonazepam No clonazepam [place] 1 mg tablet 1 mg tablet 1 mg C ommuni TAKE 1/2 TO TAKE 1/2 TO tablet ty 1 TABLET BY 1 TABLET BY TAKE 1/2 Hospita MOUTH TWICE MOUTH TWICE TO 1 l DAILY DAILY TABLET BY Cl inics NEEDED FOR NEEDED FOR MOUTH ANXIETY ANXIETY TWICE DAILY NEEDED FOR ANXIETY Dexilant 60 Dexilant 60 No Dexilant [place] mg capsule, mg capsule, 60 mg Communi delayed delayed capsule, ty release release delayed Hospit a TAKE 1 TAKE 1 release l CAPSULE BY CAPSULE BY TAKE 1 C linics MOUTH EVERY MOUTH EVERY CAPSULE BY DAY DAY MOUTH EVERY DAY doxepin 10 doxepin 10 No doxepin 10 [place] mg capsule mg capsule mg capsule Communi TAKE 1 TO 5 TAKE 1 TO 5 TAKE 1 TO ty CAPSULES BY CAPSULES BY 5 CAPSULES Hospita MOUTH EVERY MOUTH EVERY BY MOUTH l NIGHT AT NIGHT AT EVERY Clinic s BEDTIME BEDTIME NIGHT AT BEDTIME eszopiclone eszopiclone No eszopiclon [place] 3 mg tablet 3 mg tablet e 3 mg Communi TAKE 1 TAKE 1 tablet ty TABLET BY TABLET BY TAKE 1 Hos [facility]anna MOUTH EVERY MOUTH EVERY TABLET BY l EVENING EVENING MOUTH Clinics IMMEDIATELY IMMEDIATELY EVERY BEFORE BEFORE EVENING BEDTIME BEDTIME IMMEDIATEL Y BEFORE BEDTIME hydrocodone hydrocodone No hydrocodon [place] 10 10 e 10 Communi mg-acetamin mg-acetamin mg-acetami ty ophen 325 ophen 325 nophen 325 Hospita mg tablet mg tablet mg tablet l TK 1 T PO TK 1 T PO TK 1 T PO Clinics BID PRN FOR BID PRN FOR BID PRN 15 DAYS. 15 DAYS. FOR 15 DAYS. ibuprofen ibuprofen No ibuprofen [place] 800 mg 800 mg 800 mg Communi tablet TK 1 tablet TK 1 tablet TK ty T PO TID T PO TID 1 T PO TID [facility]sp[facility] WITH FOOD WITH FOOD WITH FOOD l Clinics levothyroxi levothyroxi No levothyrox [place] ne 50 mcg ne 50 mcg ine 50 mcg Communi tablet TAKE tablet TAKE tablet ty 1 TABLET BY 1 TABLET BY TAKE 1 Hospita MOUTH EVERY MOUTH EVERY TABLET BY l DAY DAY MOUTH Clinics EVERY DAY metoclopram metoclopram No metoclopra [place] aletha 10 mg aletha 10 mg mide 10 mg Communi tablet TAKE tablet TAKE tablet ty 1 TABLET BY 1 TABLET BY TAKE 1 Hospita MOUTH MOUTH TABLET BY l BEFORE BEFORE MOUTH Clinics MEALS AND MEALS AND BEFORE AT BEDTIME. AT BEDTIME. MEALS AND AT BEDTIME. nystatin nystatin No nystatin Swe peri 100,000 100,000 100,000 Commun i unit/gram unit/gram unit/gram ty topical topical topical Hospit a cream APPLY cream APPLY cream l TOPICALLY TOPICALLY APPLY Clin ics TO THE TO THE TOPICALLY AFFECTED AFFECTED TO THE AREA TWICE AREA TWICE AFFECTED DAILY FOR 7 DAILY FOR 7 AREA TWICE DAYS DAYS DAILY FOR DIRECTED DIRECTED 7 DAYS DIRECTED pramipexole pramipexole No pramipexol [place] 1 mg tablet 1 mg tablet e 1 mg Communi TAKE 1 TAKE 1 tablet ty TABLET BY TABLET BY TAKE 1 [facility] MOUTH THREE MOUTH THREE TABLET BY l TIMES DAILY TIMES DAILY MOUTH Clinics DIRECTED DIRECTED THREE TIMES DAILY DIRECTED pregabalin pregabalin No pregabalin [place] 50 mg 50 mg 50 mg Communi capsule capsule capsule ty TAKE 1 TAKE 1 TAKE 1 Hospita CAPSULE BY CAPSULE BY CAPSULE BY l MOUTH THREE MOUTH THREE MOUTH Clinics TIMES DAILY TIMES DAILY THREE DIRECTED DIRECTED TIMES DAILY DIRECTED promethazin promethazin No promethazi [place] e 25 mg e 25 mg ne 25 mg Commu ni tablet TAKE tablet TAKE tablet ty 1 TABLET BY 1 TABLET BY TAKE 1 Hospita MOUTH TWICE MOUTH TWICE TABLET BY l DAILY DAILY MOUTH Clinics TWICE DAILY [place]i 2 [place]ulti 2 No [place] 2 [place] mg tablet mg tablet mg tablet Communi TAKE 1 TAKE 1 TAKE 1 ty TABLET BY TABLET BY TABLET BY Hospita MOUTH EVERY MOUTH EVERY MOUTH l NIGHT AT NIGHT AT EVERY Clinic s BEDTIME BEDTIME NIGHT AT BEDTIME sucralfate sucralfate No sucralfate [place] 1 gram 1 gram 1 gram Communi tablet TAKE tablet TAKE tablet ty 1 TABLET BY 1 TABLET BY TAKE 1 Hospita MOUTH MOUTH TABLET BY l BEFORE BEFORE MOUTH Clinics MEALS AND MEALS AND BEFORE AT BEDTIME AT BEDTIME MEALS AND AT BEDTIME sumatriptan sumatriptan No sumatripta [place] 100 mg 100 mg n 100 mg Communi tablet TK 1 tablet TK 1 tablet TK ty T PO ONCE T PO ONCE 1 T PO Hos [facility] PRN PRN ONCE PRN l Clinics tramadol 50 tramadol 50 No tramadol [place] mg tablet mg tablet 50 mg Comm uni TK 1 T PO Q TK 1 T PO Q tablet TK ty 6 H PRN 6 H PRN 1 T PO Q 6 Hos [facility]anna H PRN l Clinics triamterene triamterene No triamteren [place] 37.5 37.5 e 37.5 Communi mg-hydrochl mg-hydrochl mg-hydroch ty orothiazide orothiazide lorothiazi [facility]ospita 25 mg 25 mg de 25 mg l tablet TAKE tablet TAKE tablet Clinics 1 TABLET BY 1 TABLET BY TAKE 1 MOUTH DAILY MOUTH DAILY TABLET BY AROUND THE AROUND THE MOUTH CLOCK CLOCK DAILY AROUND THE CLOCK Trintellix Trintellix No Trintellix [place] 10 mg 10 mg 10 mg Communi tablet TAKE tablet TAKE tablet ty 1 TABLET BY 1 TABLET BY TAKE 1 Hospita MOUTH DAILY MOUTH DAILY TABLET BY l MOUTH Clinics DAILY valacyclovi valacyclovi No valacyclov [place] r 1 gram r 1 gram ir 1 gram Co mmuni tablet TAKE tablet TAKE tablet ty 1 TABLET BY 1 TABLET BY TAKE 1 Hospita MOUTH TWICE MOUTH TWICE TABLET BY l DAILY FOR DAILY FOR MOUTH Clin ics 10 DAYS 10 DAYS TWICE DAILY FOR 10 DAYS acetaminoph acetaminoph No acetaminop [place] en 300 en 300 hen 300 Communi mg-codeine mg-codeine mg-codeine ty 30 mg 30 mg 30 mg Hospita tablet TAKE tablet TAKE tablet l 1 TABLET BY 1 TABLET BY TAKE 1 Clinics MOUTH EVERY MOUTH EVERY TABLET BY 8 HOURS 8 HOURS MOUTH NEEDED NEEDED EVERY 8 HOURS NEEDED butalbital- butalbital- No butalbital [place] acetaminoph acetaminoph -acetamino Communi en-caffeine en-caffeine phen-caffe ty 50 mg-325 50 mg-325 ine 50 [facility] mg-40 mg mg-40 mg mg-325 l tablet TK 1 tablet TK 1 mg-40 mg Clinics T PO QID T PO QID tablet TK PRN. PRN. 1 T PO QID PRN. cholecalcif cholecalcif No cholecalci [place] [facility] ferol Communi (vitamin (vitamin (vitamin ty D3) 125 mcg D3) 125 mcg D3) 125 Hospita (5,000 (5,000 mcg (5,000 l unit) unit) unit) Clinics capsule TK capsule TK capsule TK 1 GELCAP PO 1 GELCAP PO 1 GELCAP ONCE D ONCE D PO ONCE D clonazepam clonazepam No clonazepam [place] 1 mg tablet 1 mg tablet 1 mg C ommuni TAKE 1/2 TO TAKE 1/2 TO tablet ty 1 TABLET BY 1 TABLET BY TAKE 1/2 Hospita MOUTH TWICE MOUTH TWICE TO 1 l DAILY DAILY TABLET BY Cl inics NEEDED FOR NEEDED FOR MOUTH ANXIETY ANXIETY TWICE DAILY NEEDED FOR ANXIETY Dexilant 60 Dexilant 60 No Dexilant [place] mg capsule, mg capsule, 60 mg Communi delayed delayed capsule, ty release release delayed Hospit a TAKE 1 TAKE 1 release l CAPSULE BY CAPSULE BY TAKE 1 C linics MOUTH EVERY MOUTH EVERY CAPSULE BY DAY DAY MOUTH EVERY DAY doxepin 10 doxepin 10 No doxepin 10 [place] mg capsule mg capsule mg capsule Communi TAKE 1 TO 5 TAKE 1 TO 5 TAKE 1 TO ty CAPSULES BY CAPSULES BY 5 CAPSULES Hospita MOUTH EVERY MOUTH EVERY BY MOUTH l NIGHT AT NIGHT AT EVERY Clinic s BEDTIME BEDTIME NIGHT AT BEDTIME eszopiclone eszopiclone No eszopiclon [place] 3 mg tablet 3 mg tablet e 3 mg Communi TAKE 1 TAKE 1 tablet ty TABLET BY TABLET BY TAKE 1 [facility] MOUTH EVERY MOUTH EVERY TABLET BY l EVENING EVENING MOUTH Clinics IMMEDIATELY IMMEDIATELY EVERY BEFORE BEFORE EVENING BEDTIME BEDTIME IMMEDIATEL Y BEFORE BEDTIME hydrocodone hydrocodone No hydrocodon [place] 10 10 e 10 Communi mg-acetamin mg-acetamin mg-acetami ty ophen 325 ophen 325 nophen 325 Hospita mg tablet mg tablet mg tablet l TK 1 T PO TK 1 T PO TK 1 T PO Clinics BID PRN FOR BID PRN FOR BID PRN 15 DAYS. 15 DAYS. FOR 15 DAYS. ibuprofen ibuprofen No ibuprofen [place] 800 mg 800 mg 800 mg Communi tablet TK 1 tablet TK 1 tablet TK ty T PO TID T PO TID 1 T PO TID H [facility]sp[facility] WITH FOOD WITH FOOD WITH FOOD l Clinics levothyroxi levothyroxi No levothyrox [place] ne 50 mcg ne 50 mcg ine 50 mcg Communi tablet TAKE tablet TAKE tablet ty 1 TABLET BY 1 TABLET BY TAKE 1 Hospita MOUTH EVERY MOUTH EVERY TABLET BY l DAY DAY MOUTH Clinics EVERY DAY metoclopram metoclopram No metoclopra [place] aletha 10 mg aletha 10 mg mide 10 mg Communi tablet TAKE tablet TAKE tablet ty 1 TABLET BY 1 TABLET BY TAKE 1 Hospita MOUTH MOUTH TABLET BY l BEFORE BEFORE MOUTH Clinics MEALS AND MEALS AND BEFORE BEFORE BEFORE MEALS AND MEALS AND MEALS AND BEFORE AT BEDTIME AT BEDTIME MEALS AND AT BEDTIME nystatin nystatin No nystatin Swe peri 100,000 100,000 100,000 Commun i unit/gram unit/gram unit/gram ty topical topical topical Hospit a cream APPLY cream APPLY cream l TOPICALLY TOPICALLY APPLY Clin ics TO THE TO THE TOPICALLY AFFECTED AFFECTED TO THE AREA TWICE AREA TWICE AFFECTED DAILY FOR 7 DAILY FOR 7 AREA TWICE DAYS DAYS DAILY FOR DIRECTED DIRECTED 7 DAYS DIRECTED pramipexole pramipexole No pramipexol [place] 1 mg tablet 1 mg tablet e 1 mg Communi TAKE 1 TAKE 1 tablet ty TABLET BY TABLET BY TAKE 1 [facility] MOUTH THREE MOUTH THREE TABLET BY l TIMES DAILY TIMES DAILY MOUTH Clinics DIRECTED DIRECTED THREE TIMES DAILY DIRECTED pregabalin pregabalin No pregabalin [place] 50 mg 50 mg 50 mg [facility] capsule capsule capsule ty TAKE 1 TAKE 1 TAKE 1 [facility]ospita CAPSULE BY CAPSULE BY CAPSULE BY l MOUTH THREE MOUTH THREE MOUTH Clinics TIMES DAILY TIMES DAILY THREE DIRECTED DIRECTED TIMES DAILY DIRECTED promethazin promethazin No promethazi [place] e 25 mg e 25 mg ne 25 mg Commu ni tablet TAKE tablet TAKE tablet ty 1 TABLET BY 1 TABLET BY TAKE 1 Hospita MOUTH TWICE MOUTH TWICE TABLET BY l DAILY DAILY MOUTH Clinics TWICE DAILY Rexulti 2 Rexulti 2 No Rexulti 2 [place] mg tablet mg tablet mg tablet [facility]i TAKE 1 TAKE 1 TAKE 1 ty TABLET BY TABLET BY TABLET BY Hospita MOUTH EVERY MOUTH EVERY MOUTH l NIGHT AT NIGHT AT EVERY Clinic s BEDTIME BEDTIME NIGHT AT BEDTIME sucralfate sucralfate No sucralfate [place] 1 gram 1 gram 1 gram [facility] tablet TAKE tablet TAKE tablet ty 1 TABLET BY 1 TABLET BY TAKE 1 Hospita MOUTH MOUTH TABLET BY l BEFORE BEFORE MOUTH Clinics MEALS AND MEALS AND BEFORE AT BEDTIME AT BEDTIME MEALS AND AT BEDTIME sumatriptan sumatriptan No sumatripta [place] 100 mg 100 mg n 100 mg [facility] tablet TK 1 tablet TK 1 tablet TK ty T PO ONCE T PO ONCE 1 T PO [facility] PRN PRN ONCE PRN l Clinics tramadol 50 tramadol 50 No tramadol [place] mg tablet mg tablet 50 mg Comm uni TK 1 T PO Q TK 1 T PO Q tablet TK ty 6 H PRN 6 H PRN 1 T PO Q 6 [facility] H PRN l Clinics triamterene triamterene No triamteren [place] 37.5 37.5 e 37.5 [facility]i mg-hydrochl mg-hydrochl mg-hydroch ty orothiazide orothiazide [facility] 25 mg 25 mg de 25 mg l tablet TAKE tablet TAKE tablet Clinics 1 TABLET BY 1 TABLET BY TAKE 1 MOUTH DAILY MOUTH DAILY TABLET BY AROUND THE AROUND THE MOUTH CLOCK CLOCK DAILY AROUND THE CLOCK Trintellix Trintellix No Trintellix [place] 10 mg 10 mg 10 mg [facility] tablet TAKE tablet TAKE tablet ty 1 TABLET BY 1 TABLET BY TAKE 1 Hospita MOUTH DAILY MOUTH DAILY TABLET BY l MOUTH Clinics DAILY valacyclovi valacyclovi No valacyclov [place] r 1 gram r 1 gram ir 1 gram [facility] tablet TAKE tablet TAKE tablet ty 1 TABLET BY 1 TABLET BY TAKE 1 Hospita MOUTH TWICE MOUTH TWICE TABLET BY l DAILY FOR DAILY FOR MOUTH Clin ics 10 DAYS 10 DAYS TWICE DAILY FOR 10 DAYS acetaminoph acetaminoph No acetaminop [place] en 300 en 300 hen 300 [facility]i mg-codeine mg-codeine mg-codeine ty 30 mg 30 mg 30 mg Hospita tablet TAKE tablet TAKE tablet l 1 TABLET BY 1 TABLET BY TAKE 1 Clinics MOUTH EVERY MOUTH EVERY TABLET BY 8 HOURS 8 HOURS MOUTH NEEDED NEEDED EVERY 8 HOURS NEEDED butalbital- butalbital- No butalbital [place] acetaminoph acetaminoph -acetamino Communi en-caffeine en-caffeine phen-caffe ty 50 mg-325 50 mg-325 ine 50 [facility] mg-40 mg mg-40 mg mg-325 l tablet TK 1 tablet TK 1 mg-40 mg Clinics T PO QID T PO QID tablet TK PRN. PRN. 1 T PO QID PRN. cholecalcif cholecalcif No 1capsul Q1D cholecalci [place] immanuel immanuel e(s) ferol [facility] (vitamin (vitamin (vitamin ty D3) 125 mcg D3) 125 mcg D3) 125 Hospita (5,000 (5,000 mcg (5,000 l unit) unit) unit) Clinics capsule capsule capsule Take 1 Take 1 Take 1 capsule capsule capsule every day every day every day by oral by oral by oral route as route as route as directed directed directed for 90 for 90 for 90 days. days. days. clonazepam clonazepam No clonazepam [place] 1 mg tablet 1 mg tablet 1 mg [facility] TAKE 1/2 TO TAKE 1/2 TO tablet ty 1 TABLET BY 1 TABLET BY TAKE 1/2 Hospita MOUTH TWICE MOUTH TWICE TO 1 l DAILY DAILY TABLET BY Cl inics NEEDED FOR NEEDED FOR MOUTH ANXIETY ANXIETY TWICE DAILY NEEDED FOR ANXIETY Dexilant 60 Dexilant 60 No Dexilant [place] mg capsule, mg capsule, 60 mg [facility] delayed delayed capsule, ty release release delayed Hospit a TAKE 1 TAKE 1 release l CAPSULE BY CAPSULE BY TAKE 1 C linics MOUTH EVERY MOUTH EVERY CAPSULE BY DAY DAY MOUTH EVERY DAY doxepin 10 doxepin 10 No doxepin 10 [place] mg capsule mg capsule mg capsule [facility]i TAKE 1 TO 5 TAKE 1 TO 5 TAKE 1 TO ty CAPSULES BY CAPSULES BY 5 CAPSULES Hospita MOUTH EVERY MOUTH EVERY BY MOUTH l NIGHT AT NIGHT AT EVERY Clinic s BEDTIME BEDTIME NIGHT AT BEDTIME eszopiclone eszopiclone No eszopiclon [place] 3 mg tablet 3 mg tablet e 3 mg Communi TAKE 1 TAKE 1 tablet ty TABLET BY TABLET BY TAKE 1 [facility] MOUTH EVERY MOUTH EVERY TABLET BY l EVENING EVENING MOUTH Clinics IMMEDIATELY IMMEDIATELY EVERY BEFORE BEFORE EVENING BEDTIME BEDTIME IMMEDIATEL Y BEFORE BEDTIME hydrocodone hydrocodone No hydrocodon [place] 10 10 e 10 Communi mg-acetamin mg-acetamin mg-acetami ty ophen 325 ophen 325 nophen 325 Hospita mg tablet mg tablet mg tablet l TK 1 T PO TK 1 T PO TK 1 T PO Clinics BID PRN FOR BID PRN FOR BID PRN 15 DAYS. 15 DAYS. FOR 15 DAYS. levothyroxi levothyroxi No levothyrox [place] ne 50 mcg ne 50 mcg ine 50 mcg [facility] tablet TAKE tablet TAKE tablet ty 1 TABLET BY 1 TABLET BY TAKE 1 Hospita MOUTH EVERY MOUTH EVERY TABLET BY l DAY DAY MOUTH Clinics EVERY DAY metoclopram metoclopram No metoclopra [place] aletha 10 mg aletha 10 mg mide 10 mg [facility] tablet TAKE tablet TAKE tablet ty 1 TABLET BY 1 TABLET BY TAKE 1 Hospita MOUTH MOUTH TABLET BY l BEFORE BEFORE MOUTH Clinics MEALS AND MEALS AND BEFORE BEFORE BEFORE MEALS AND MEALS AND MEALS AND BEFORE AT BEDTIME AT BEDTIME MEALS AND AT BEDTIME nystatin nystatin No nystatin Swe peri 100,000 100,000 100,000 Commun i unit/gram unit/gram unit/gram ty topical topical topical Hospit a cream APPLY cream APPLY cream l TOPICALLY TOPICALLY APPLY Clin ics TO THE TO THE TOPICALLY AFFECTED AFFECTED TO THE AREA TWICE AREA TWICE AFFECTED DAILY FOR 7 DAILY FOR 7 AREA TWICE DAYS DAYS DAILY FOR DIRECTED DIRECTED 7 DAYS DIRECTED pramipexole pramipexole No pramipexol [place] 1 mg tablet 1 mg tablet e 1 mg Communi TAKE 1 TAKE 1 tablet ty TABLET BY TABLET BY TAKE 1 [facility] MOUTH THREE MOUTH THREE TABLET BY l TIMES DAILY TIMES DAILY MOUTH Clinics DIRECTED DIRECTED THREE TIMES DAILY DIRECTED pregabalin pregabalin No 1capsul TID pregabalin [place] 50 mg 50 mg e(s) 50 mg Commun[facility] capsule capsule capsule ty Take 1 Take 1 Take 1 Hospita capsule 3 capsule 3 capsule 3 l times a day times a day times a Clinics by oral by oral day by route as route as oral route directed directed as for 30 for 30 directed days. days. for 30 days. promethazin promethazin No promethazi [place] e 25 mg e 25 mg ne 25 mg Com[facility] ni tablet TAKE tablet TAKE tablet ty 1 TABLET BY 1 TABLET BY TAKE 1 Hospita MOUTH TWICE MOUTH TWICE TABLET BY l DAILY DAILY MOUTH Clinics TWICE DAILY Rexulti 2 Rexulti 2 No Rexulti 2 [place] mg tablet mg tablet mg tablet Communi TAKE 1 TAKE 1 TAKE 1 ty TABLET BY TABLET BY TABLET BY Hospita MOUTH EVERY MOUTH EVERY MOUTH l NIGHT AT NIGHT AT EVERY Clinic s BEDTIME BEDTIME NIGHT AT BEDTIME sucralfate sucralfate No sucralfate [place] 1 gram 1 gram 1 gram [facility] tablet TAKE tablet TAKE tablet ty 1 TABLET BY 1 TABLET BY TAKE 1 Hospita MOUTH MOUTH TABLET BY l BEFORE BEFORE MOUTH Clinics MEALS AND MEALS AND BEFORE AT BEDTIME AT BEDTIME MEALS AND AT BEDTIME triamterene triamterene No triamteren [place] 37.5 37.5 e 37.5 [facility]i mg-hydrochl mg-hydrochl mg-hydroch ty orothiazide orothiazide [facility] 25 mg 25 mg de 25 mg l tablet TAKE tablet TAKE tablet Clinics 1 TABLET BY 1 TABLET BY TAKE 1 MOUTH DAILY MOUTH DAILY TABLET BY AROUND THE AROUND THE MOUTH CLOCK CLOCK DAILY AROUND THE CLOCK [facility] Trintellix No Trintellix [place] 20 mg 20 mg 20 mg Communi tablet tablet tablet ty Hospita l Clinics valacyclovi valacyclovi No valacyclov [place] r 1 gram r 1 gram ir 1 gram [facility] tablet TAKE tablet TAKE tablet ty 1 TABLET BY 1 TABLET BY TAKE 1 Hospita MOUTH TWICE MOUTH TWICE TABLET BY l DAILY FOR DAILY FOR MOUTH Clin ics 10 DAYS 10 DAYS TWICE DAILY FOR 10 DAYS clonazepam clonazepam No clonazepam [place] 1 mg tablet 1 mg tablet 1 mg [facility] TAKE 1/2 TO TAKE 1/2 TO tablet ty 1 TABLET BY 1 TABLET BY TAKE 1/2 Hospita MOUTH TWICE MOUTH TWICE TO 1 l DAILY DAILY TABLET BY Cl inics NEEDED FOR NEEDED FOR MOUTH ANXIETY ANXIETY TWICE DAILY NEEDED FOR ANXIETY Dexilant 60 Dexilant 60 No Dexilant [place] mg capsule, mg capsule, 60 mg [facility] delayed delayed capsule, ty release release delayed Hospit a TAKE ONE TAKE ONE release l CAPSULE BY CAPSULE BY TAKE ONE Clinics MOUTH EVERY MOUTH EVERY CAPSULE BY DAY DAY MOUTH EVERY DAY doxepin 10 doxepin 10 No doxepin 10 [place] mg capsule mg capsule mg capsule Communi TAKE 1 TO 5 TAKE 1 TO 5 TAKE 1 TO ty CAPSULES BY CAPSULES BY 5 CAPSULES Hospita MOUTH EVERY MOUTH EVERY BY MOUTH l NIGHT AT NIGHT AT EVERY Clinic s BEDTIME BEDTIME NIGHT AT NEEDED FOR NEEDED FOR BEDTIME SLEEP SLEEP NEEDED FOR SLEEP eszopiclone eszopiclone No eszopiclon [place] 3 mg tablet 3 mg tablet e 3 mg Communi TAKE 1 TAKE 1 tablet ty TABLET BY TABLET BY TAKE 1 [facility] MOUTH EVERY MOUTH EVERY TABLET BY l EVENING EVENING MOUTH Clinics IMMEDIATELY IMMEDIATELY EVERY BEFORE BEFORE EVENING BEDTIME BEDTIME IMMEDIATEL Y BEFORE BEDTIME levothyroxi levothyroxi No levothyrox [place] ne 50 mcg ne 50 mcg ine 50 mcg Commun[facility] tablet TAKE tablet TAKE tablet ty 1 TABLET BY 1 TABLET BY TAKE 1 Hospita MOUTH EVERY MOUTH EVERY TABLET BY l DAY DAY MOUTH Clinics EVERY DAY metoclopram metoclopram No metoclopra [place] aletha 10 mg aletha 10 mg mide 10 mg Communi tablet TAKE tablet TAKE tablet ty 1 TABLET BY 1 TABLET BY TAKE 1 Hospita MOUTH MOUTH TABLET BY l BEFORE BEFORE MOUTH Clinics MEALS AND MEALS AND BEFORE BEFORE BEFORE MEALS AND MEALS AND MEALS AND BEFORE AT BEDTIME AT BEDTIME MEALS AND AT BEDTIME nystatin nystatin No nystatin Swe peri 100,000 100,000 100,000 Commun i unit/gram unit/gram unit/gram ty topical topical topical Hospit a cream APPLY cream APPLY cream l TOPICALLY TOPICALLY APPLY Clin ics TO THE TO THE TOPICALLY AFFECTED AFFECTED TO THE AREA TWICE AREA TWICE AFFECTED DAILY FOR 7 DAILY FOR 7 AREA TWICE DAYS DAYS DAILY FOR DIRECTED DIRECTED 7 DAYS DIRECTED potassium potassium No 1 Q1D potassium [place] chloride ER chloride ER chloride [facility]i 20 mEq 20 mEq ER 20 mEq ty tablet,exte tablet,exte tablet,ext Hospita nded nded ended l release release release Clinic s Take 1 Take 1 Take 1 tablet tablet tablet every day every day every day by oral by oral by oral route as route as route as directed directed directed for 30 for 30 for 30 days. days. days. pramipexole pramipexole No pramipexol [place] 1 mg tablet 1 mg tablet e 1 mg [facility]i TAKE 1 TAKE 1 tablet ty TABLET BY TABLET BY TAKE 1 [facility] MOUTH THREE MOUTH THREE TABLET BY l TIMES DAILY TIMES DAILY MOUTH Clinics DIRECTED DIRECTED THREE TIMES DAILY DIRECTED pregabalin pregabalin No pregabalin [place] 50 mg 50 mg 50 mg Commun[facility] capsule capsule capsule ty TAKE 1 TAKE 1 TAKE 1 Hospita CAPSULE BY CAPSULE BY CAPSULE BY l MOUTH THREE MOUTH THREE MOUTH Clinics TIMES DAILY TIMES DAILY THREE DIRECTED DIRECTED TIMES DAILY DIRECTED promethazin promethazin No promethazi [place] e 25 mg e 25 mg ne 25 mg Com[facility] ni tablet TAKE tablet TAKE tablet ty 1 TABLET BY 1 TABLET BY TAKE 1 Hospita MOUTH TWICE MOUTH TWICE TABLET BY l DAILY DAILY MOUTH Clinics TWICE DAILY Rexulti 2 Rexulti 2 No Rexulti 2 [place] mg tablet mg tablet mg tablet Communi TAKE 1 TAKE 1 TAKE 1 ty TABLET BY TABLET BY TABLET BY Hospita MOUTH EVERY MOUTH EVERY MOUTH l NIGHT AT NIGHT AT EVERY Clinic s BEDTIME BEDTIME NIGHT AT BEDTIME sucralfate sucralfate No sucralfate [place] 1 gram 1 gram 1 gram [facility] tablet TAKE tablet TAKE tablet ty 1 TABLET BY 1 TABLET BY TAKE 1 Hospita MOUTH MOUTH TABLET BY l BEFORE BEFORE MOUTH Clinics MEALS AND MEALS AND BEFORE AT BEDTIME AT BEDTIME MEALS AND AT BEDTIME triamterene triamterene No triamteren [place] 37.5 37.5 e 37.5 [facility]i mg-hydrochl mg-hydrochl mg-hydroch ty orothiazide orothiazide [facility] 25 mg 25 mg de 25 mg l tablet TAKE tablet TAKE tablet Clinics 1 TABLET BY 1 TABLET BY TAKE 1 MOUTH DAILY MOUTH DAILY TABLET BY AROUND THE AROUND THE MOUTH CLOCK CLOCK DAILY AROUND THE CLOCK [facility] Trintellix No Trintellix [place] 20 mg 20 mg 20 mg [facility]i tablet TAKE tablet TAKE tablet ty 1 TABLET BY 1 TABLET BY TAKE 1 Hospita MOUTH DAILY MOUTH DAILY TABLET BY l MOUTH Clinics DAILY valacyclovi valacyclovi No valacyclov [place] r 1 gram r 1 gram ir 1 gram [facility] tablet prn tablet prn tablet prn ty Hospita l Clinics Augmentin Augmentin No 1 Q12H Augmentin [place] 875 mg-125 875 mg-125 875 mg-125 Communi mg tablet mg tablet mg tablet ty Take 1 Take 1 Take 1 Hospita tablet tablet tablet l every 12 every 12 every 12 Cli nics hours by hours by hours by oral route oral route oral route as directed as directed as for 7 days. for 7 days. directed for 7 days. clonazepam clonazepam No clonazepam [place] 1 mg tablet 1 mg tablet 1 mg [facility] TAKE 1/2 TO TAKE 1/2 TO tablet ty 1 TABLET BY 1 TABLET BY TAKE 1/2 Hospita MOUTH DAILY MOUTH DAILY TO 1 l NEEDED NEEDED TABLET BY Clinics FOR ANXIETY FOR ANXIETY MOUTH DAILY NEEDED FOR ANXIETY Dexilant 60 Dexilant 60 No Dexilant [place] mg capsule, mg capsule, 60 mg [facility] delayed delayed capsule, ty release release delayed Hospit a TAKE ONE TAKE ONE release l CAPSULE BY CAPSULE BY TAKE ONE Clinics MOUTH EVERY MOUTH EVERY CAPSULE BY DAY DAY MOUTH EVERY DAY doxepin 10 doxepin 10 No doxepin 10 [place] mg capsule mg capsule mg capsule Communi TAKE 1 TO 5 TAKE 1 TO 5 TAKE 1 TO ty CAPSULES BY CAPSULES BY 5 CAPSULES Hospita MOUTH EVERY MOUTH EVERY BY MOUTH l NIGHT AT NIGHT AT EVERY Clinic s BEDTIME BEDTIME NIGHT AT NEEDED FOR NEEDED FOR BEDTIME SLEEP SLEEP NEEDED FOR SLEEP eszopiclone eszopiclone No eszopiclon [place] 3 mg tablet 3 mg tablet e 3 mg Communi TAKE 1 TAKE 1 tablet ty TABLET BY TABLET BY TAKE 1 [facility] MOUTH EVERY MOUTH EVERY TABLET BY l EVENING EVENING MOUTH Clinics IMMEDIATELY IMMEDIATELY EVERY BEFORE BEFORE EVENING BEDTIME BEDTIME IMMEDIATEL Y BEFORE BEDTIME hydrochloro hydrochloro No hydrochlor [place] thiazide 25 thiazide 25 othiazide Communi mg tablet mg tablet 25 mg ty TAKE 1 TAKE 1 tablet Hospita TABLET BY TABLET BY TAKE 1 l MOUTH EVERY MOUTH EVERY TABLET BY Clinics DAY DAY MOUTH NEEDED NEEDED EVERY DAY NEEDED levothyroxi levothyroxi No levothyrox [place] ne 50 mcg ne 50 mcg ine 50 mcg [facility] tablet TAKE tablet TAKE tablet ty 1 TABLET BY 1 TABLET BY TAKE 1 Hospita MOUTH EVERY MOUTH EVERY TABLET BY l DAY DAY MOUTH Clinics EVERY DAY metoclopram metoclopram No metoclopra [place] aletha 10 mg aletha 10 mg mide 10 mg [facility]i tablet TAKE tablet TAKE tablet ty 1 TABLET BY 1 TABLET BY TAKE 1 Hospita MOUTH MOUTH TABLET BY l BEFORE BEFORE MOUTH Clinics MEALS AND MEALS AND BEFORE BEFORE BEFORE MEALS AND MEALS AND MEALS AND BEFORE AT BEDTIME AT BEDTIME MEALS AND AT BEDTIME nystatin nystatin No nystatin Swe peri 100,000 100,000 100,000 Commun i unit/gram unit/gram unit/gram ty topical topical topical Hospit a cream APPLY cream APPLY cream l TOPICALLY TOPICALLY APPLY Clin ics TO THE TO THE TOPICALLY AFFECTED AFFECTED TO THE AREA TWICE AREA TWICE AFFECTED DAILY FOR 7 DAILY FOR 7 AREA TWICE DAYS DAYS DAILY FOR DIRECTED DIRECTED 7 DAYS DIRECTED ondansetron ondansetron No 1 Q6H ondansetro [place] HCl 4 mg HCl 4 mg n HCl 4 mg [facility] tablet Take tablet Take tablet ty 1 tablet 1 tablet Take 1 Hospi ta every 6 every 6 tablet l hours by hours by every 6 Clin ics oral route oral route hours by as needed as needed oral route for 5 days. for 5 days. as needed for 5 days. potassium potassium No potassium [place] chloride ER chloride ER chloride [facility]i 20 mEq 20 mEq ER 20 mEq ty tablet,exte tablet,exte tablet,ext Hospita nded nded ended l release release release Clinic s TAKE 1 TAKE 1 TAKE 1 TABLET BY TABLET BY TABLET BY MOUTH EVERY MOUTH EVERY MOUTH DAY DAY EVERY DAY DIRECTED DIRECTED DIRECTED pramipexole pramipexole No pramipexol [place] 1 mg tablet 1 mg tablet e 1 mg [facility]i TAKE 1 TAKE 1 tablet ty TABLET BY TABLET BY TAKE 1 [facility] MOUTH THREE MOUTH THREE TABLET BY l TIMES DAILY TIMES DAILY MOUTH Clinics DIRECTED DIRECTED THREE TIMES DAILY DIRECTED pregabalin pregabalin No pregabalin [place] 50 mg 50 mg 50 mg [facility] capsule capsule capsule ty TAKE 1 TAKE 1 TAKE 1 Hospita CAPSULE BY CAPSULE BY CAPSULE BY l MOUTH THREE MOUTH THREE MOUTH Clinics TIMES DAILY TIMES DAILY THREE DIRECTED DIRECTED TIMES DAILY DIRECTED Rexulti 2 Rexulti 2 No Rexulti 2 [place] mg tablet mg tablet mg tablet [facility]i TAKE 1 TAKE 1 TAKE 1 ty TABLET BY TABLET BY TABLET BY Hospita MOUTH EVERY MOUTH EVERY MOUTH l NIGHT AT NIGHT AT EVERY Clinic s BEDTIME BEDTIME NIGHT AT BEDTIME sucralfate sucralfate No sucralfate [place] 1 gram 1 gram 1 gram [facility] tablet TAKE tablet TAKE tablet ty 1 TABLET BY 1 TABLET BY TAKE 1 Hospita MOUTH MOUTH TABLET BY l BEFORE BEFORE MOUTH Clinics MEALS AND MEALS AND BEFORE AT BEDTIME AT BEDTIME MEALS AND AT BEDTIME triamterene triamterene No triamteren [place] 37.5 37.5 e 37.5 [facility]i mg-hydrochl mg-hydrochl mg-hydroch ty orothiazide orothiazide [facility] 25 mg 25 mg de 25 mg l tablet TAKE tablet TAKE tablet Clinics 1 TABLET BY 1 TABLET BY TAKE 1 MOUTH DAILY MOUTH DAILY TABLET BY AROUND THE AROUND THE MOUTH CLOCK CLOCK DAILY AROUND THE CLOCK [facility] Trintellix No Trintellix [place] 20 mg 20 mg 20 mg [facility] tablet TAKE tablet TAKE tablet ty 1 TABLET BY 1 TABLET BY TAKE 1 Hospita MOUTH DAILY MOUTH DAILY TABLET BY l MOUTH Clinics DAILY valacyclovi valacyclovi No valacyclov [place] r 1 gram r 1 gram ir 1 gram [facility] tablet prn tablet prn tablet prn ty [facility]ospita l Clinics clonazepam clonazepam No clonazepam [place] 1 mg tablet 1 mg tablet 1 mg [facility] TAKE 1/2 TO TAKE 1/2 TO tablet ty 1 TABLET BY 1 TABLET BY TAKE 1/2 Hospita MOUTH DAILY MOUTH DAILY TO 1 l NEEDED NEEDED TABLET BY Clinics FOR ANXIETY FOR ANXIETY MOUTH DAILY NEEDED FOR ANXIETY Dexilant 60 Dexilant 60 No Dexilant [place] mg capsule, mg capsule, 60 mg [facility] delayed delayed capsule, ty release release delayed Hospit a TAKE 1 TAKE 1 release l CAPSULE BY CAPSULE BY TAKE 1 C linics MOUTH EVERY MOUTH EVERY CAPSULE BY DAY DAY MOUTH EVERY DAY doxepin 10 doxepin 10 No doxepin 10 [place] mg capsule mg capsule mg capsule [facility]i TAKE 1 TO 5 TAKE 1 TO 5 TAKE 1 TO ty CAPSULES BY CAPSULES BY 5 CAPSULES Hospita MOUTH EVERY MOUTH EVERY BY MOUTH l NIGHT AT NIGHT AT EVERY Clinic s BEDTIME BEDTIME NIGHT AT NEEDED FOR NEEDED FOR BEDTIME SLEEP SLEEP NEEDED FOR SLEEP estradiol estradiol No estradiol [place] 0.01% (0.1 0.01% (0.1 0.01% (0.1 [facility]i mg/gram) mg/gram) mg/gram) ty vaginal vaginal vaginal Hospit a cream cream cream l INSERT 0.5 INSERT 0.5 INSERT 0.5 Clinics GRAM GRAM GRAM VAGINALLY 3 VAGINALLY 3 VAGINALLY TIMES A TIMES A 3 TIMES A WEEK AT WEEK AT WEEK AT BEDTIME BEDTIME BEDTIME hydrochloro hydrochloro No hydrochlor [place] thiazide 25 thiazide 25 othiazide Commun[facility] mg tablet mg tablet 25 mg ty TAKE 1 TAKE 1 tablet Hospita TABLET BY TABLET BY TAKE 1 l MOUTH EVERY MOUTH EVERY TABLET BY Clinics DAY DAY MOUTH NEEDED NEEDED EVERY DAY NEEDED levothyroxi levothyroxi No levothyrox [place] ne 50 mcg ne 50 mcg ine 50 mcg [facility] tablet TAKE tablet TAKE tablet ty 1 TABLET BY 1 TABLET BY TAKE 1 Hospita MOUTH EVERY MOUTH EVERY TABLET BY l DAY DAY MOUTH Clinics EVERY DAY metoclopram metoclopram No metoclopra [place] aletha 10 mg aletha 10 mg mide 10 mg [facility]i tablet TAKE tablet TAKE tablet ty 1 TABLET BY 1 TABLET BY TAKE 1 Hospita MOUTH MOUTH TABLET BY l BEFORE BEFORE MOUTH Clinics MEALS AND MEALS AND BEFORE BEFORE BEFORE MEALS AND MEALS AND MEALS AND BEFORE AT BEDTIME AT BEDTIME MEALS AND AT BEDTIME ondansetron ondansetron No ondansetro [place] HCl 4 mg HCl 4 mg n HCl 4 mg [facility] tablet TAKE tablet TAKE tablet ty 1 TABLET BY 1 TABLET BY TAKE 1 Hospita MOUTH EVERY MOUTH EVERY TABLET BY l 6 HOURS FOR 6 HOURS FOR MOUTH Clinics 5 DAYS 5 DAYS EVERY 6 NEEDED NEEDED HOURS FOR 5 DAYS NEEDED oxcarbazepi oxcarbazepi No oxcarbazep [place] ne 300 mg ne 300 mg ine 300 mg Communi tablet TAKE tablet TAKE tablet ty 1 TABLET BY 1 TABLET BY TAKE 1 Hospita MOUTH EVERY MOUTH EVERY TABLET BY l NIGHT AT NIGHT AT MOUTH Clinic s BEDTIME BEDTIME EVERY NIGHT AT BEDTIME potassium potassium No potassium [place] chloride ER chloride ER chloride [facility]i 20 mEq 20 mEq ER 20 mEq ty tablet,exte tablet,exte tablet,ext Hospita nded nded ended l release release release Clinic s TAKE 1 TAKE 1 TAKE 1 TABLET BY TABLET BY TABLET BY MOUTH EVERY MOUTH EVERY MOUTH DAY DAY EVERY DAY DIRECTED DIRECTED DIRECTED pramipexole pramipexole No pramipexol [place] 1 mg tablet 1 mg tablet e 1 mg Communi TAKE 2 TAKE 2 tablet ty TABLETS BY TABLETS BY TAKE 2 H [facility]spita MOUTH EVERY MOUTH EVERY TABLETS BY l EVENING EVENING MOUTH Clinics EVERY EVENING pregabalin pregabalin No pregabalin [place] 50 mg 50 mg 50 mg Communi capsule capsule capsule ty TAKE 1 TAKE 1 TAKE 1 Hospita CAPSULE BY CAPSULE BY CAPSULE BY l MOUTH THREE MOUTH THREE MOUTH Clinics TIMES DAILY TIMES DAILY THREE DIRECTED DIRECTED TIMES DAILY DIRECTED promethazin promethazin No promethazi [place] e 25 mg e 25 mg ne 25 mg [facility] ni tablet TAKE tablet TAKE tablet ty 1 TABLET BY 1 TABLET BY TAKE 1 Hospita MOUTH TWICE MOUTH TWICE TABLET BY l DAILY DAILY MOUTH Clinic s NEEDED FOR NEEDED FOR TWICE NAUSEA NAUSEA DAILY NEEDED FOR NAUSEA Rexulti 2 Rexulti 2 No Rexulti 2 [place] mg tablet mg tablet mg tablet Communi TAKE 1 TAKE 1 TAKE 1 ty TABLET BY TABLET BY TABLET BY Hospita MOUTH EVERY MOUTH EVERY MOUTH l NIGHT AT NIGHT AT EVERY Clinic s BEDTIME BEDTIME NIGHT AT BEDTIME sucralfate sucralfate No sucralfate [place] 1 gram 1 gram 1 gram [facility] tablet TAKE tablet TAKE tablet ty 1 TABLET BY 1 TABLET BY TAKE 1 Hospita MOUTH EVERY MOUTH EVERY TABLET BY l DAY 8 HOURS DAY 8 HOURS MOUTH Clinics BEFORE BEFORE EVERY DAY MEALS AND MEALS AND 8 HOURS AT BEDTIME AT BEDTIME BEFORE MEALS AND AT BEDTIME triamterene triamterene No triamteren [place] 37.5 37.5 e 37.5 Communi mg-hydrochl mg-hydrochl mg-hydroch ty orothiazide orothiazide [facility] 25 mg 25 mg de 25 mg l tablet TAKE tablet TAKE tablet Clinics 1 TABLET BY 1 TABLET BY TAKE 1 MOUTH DAILY MOUTH DAILY TABLET BY AROUND THE AROUND THE MOUTH CLOCK CLOCK DAILY AROUND THE CLOCK [facility] Trintellix No Trintellix [place] 20 mg 20 mg 20 mg [facility]i tablet TAKE tablet TAKE tablet ty 1 TABLET BY 1 TABLET BY TAKE 1 Hospita MOUTH DAILY MOUTH DAILY TABLET BY l MOUTH Clinics DAILY zolpidem ER zolpidem ER No zolpidem [place] 12.5 mg 12.5 mg ER 12.5 mg Com mina tablet,exte tablet,exte tablet,ext ty nded nded ended Hospita release,mul release,mul release,mu l tiphase tiphase ltiphase Clini cs clonazepam clonazepam No clonazepam [place] 1 mg tablet 1 mg tablet 1 mg [facility] TAKE 1/2 TO TAKE 1/2 TO tablet ty 1 TABLET BY 1 TABLET BY TAKE 1/2 Hospita MOUTH DAILY MOUTH DAILY TO 1 l NEEDED NEEDED TABLET BY Clinics FOR ANXIETY FOR ANXIETY MOUTH DAILY NEEDED FOR ANXIETY Dexilant 60 Dexilant 60 No Dexilant [place] mg capsule, mg capsule, 60 mg [facility]i delayed delayed capsule, ty release release delayed Hospit a TAKE 1 TAKE 1 release l CAPSULE BY CAPSULE BY TAKE 1 C linics MOUTH EVERY MOUTH EVERY CAPSULE BY DAY DAY MOUTH EVERY DAY doxepin 10 doxepin 10 No doxepin 10 [place] mg capsule mg capsule mg capsule Communi TAKE 1 TO 5 TAKE 1 TO 5 TAKE 1 TO ty CAPSULES BY CAPSULES BY 5 CAPSULES Hospita MOUTH EVERY MOUTH EVERY BY MOUTH l NIGHT AT NIGHT AT EVERY Clinic s BEDTIME BEDTIME NIGHT AT NEEDED FOR NEEDED FOR BEDTIME SLEEP SLEEP NEEDED FOR SLEEP estradiol estradiol No estradiol [place] 0.01% (0.1 0.01% (0.1 0.01% (0.1 Communi mg/gram) mg/gram) mg/gram) ty vaginal vaginal vaginal Hospit a cream cream cream l INSERT 0.5 INSERT 0.5 INSERT 0.5 Clinics GRAM GRAM GRAM VAGINALLY 3 VAGINALLY 3 VAGINALLY TIMES A TIMES A 3 TIMES A WEEK AT WEEK AT WEEK AT BEDTIME BEDTIME BEDTIME eszopiclone eszopiclone No eszopiclon [place] 3 mg tablet 3 mg tablet e 3 mg Communi tablet ty [facility]ospita l Clinics levothyroxi levothyroxi No levothyrox [place] ne 50 mcg ne 50 mcg ine 50 mcg Communi tablet TAKE tablet TAKE tablet ty 1 TABLET BY 1 TABLET BY TAKE 1 Hospita MOUTH EVERY MOUTH EVERY TABLET BY l DAY DAY MOUTH Clinics EVERY DAY metoclopram metoclopram No metoclopra [place] aletha 10 mg aletha 10 mg mide 10 mg Communi tablet TAKE tablet TAKE tablet ty 1 TABLET BY 1 TABLET BY TAKE 1 Hospita MOUTH MOUTH TABLET BY l BEFORE BEFORE MOUTH Clinics MEALS AND MEALS AND BEFORE BEFORE BEFORE MEALS AND MEALS AND MEALS AND BEFORE AT BEDTIME AT BEDTIME MEALS AND AT BEDTIME oxcarbazepi oxcarbazepi No oxcarbazep [place] ne 300 mg ne 300 mg ine 300 mg Communi tablet TAKE tablet TAKE tablet ty 1 TABLET BY 1 TABLET BY TAKE 1 Hospita MOUTH EVERY MOUTH EVERY TABLET BY l NIGHT AT NIGHT AT MOUTH Clinic s BEDTIME BEDTIME EVERY NIGHT AT BEDTIME potassium potassium No potassium [place] chloride ER chloride ER chloride [facility]i 20 mEq 20 mEq ER 20 mEq ty tablet,exte tablet,exte tablet,ext Hospita nded nded ended l release release release Clinic s TAKE 1 TAKE 1 TAKE 1 TABLET BY TABLET BY TABLET BY MOUTH EVERY MOUTH EVERY MOUTH DAY DAY EVERY DAY DIRECTED DIRECTED DIRECTED pramipexole pramipexole No pramipexol [place] 1 mg tablet 1 mg tablet e 1 mg Communi TAKE 1 TAKE 1 tablet ty TABLET BY TABLET BY TAKE 1 [facility] MOUTH THREE MOUTH THREE TABLET BY l TIMES DAILY TIMES DAILY MOUTH Clinics EVERY 8 EVERY 8 THREE HOURS HOURS TIMES DAILY EVERY 8 HOURS pregabalin pregabalin No pregabalin [place] 50 mg 50 mg 50 mg [facility] capsule capsule capsule ty TAKE ONE TAKE ONE TAKE ONE [facility] CAPSULE BY CAPSULE BY CAPSULE BY l MOUTH THREE MOUTH THREE MOUTH Clinics TIMES DAILY TIMES DAILY THREE TIMES DAILY promethazin promethazin No promethazi [place] e 25 mg e 25 mg ne 25 mg Commu ni tablet TAKE tablet TAKE tablet ty 1 TABLET BY 1 TABLET BY TAKE 1 Hospita MOUTH TWICE MOUTH TWICE TABLET BY l DAILY DAILY MOUTH Clinic s NEEDED FOR NEEDED FOR TWICE NAUSEA NAUSEA DAILY NEEDED FOR NAUSEA Rexulti 2 Rexulti 2 No Rexulti 2 [place] mg tablet mg tablet mg tablet Communi TAKE 1 TAKE 1 TAKE 1 ty TABLET BY TABLET BY TABLET BY Hospita MOUTH EVERY MOUTH EVERY MOUTH l NIGHT AT NIGHT AT EVERY Clinic s BEDTIME BEDTIME NIGHT AT BEDTIME sucralfate sucralfate No sucralfate [place] 1 gram 1 gram 1 gram [facility] tablet TAKE tablet TAKE tablet ty 1 TABLET BY 1 TABLET BY TAKE 1 Hospita MOUTH MOUTH TABLET BY l BEFORE BEFORE MOUTH Clinics MEALS AND MEALS AND BEFORE AT BEDTIME AT BEDTIME MEALS AND AT BEDTIME triamterene triamterene No triamteren [place] 37.5 37.5 e 37.5 [facility]i mg-hydrochl mg-hydrochl mg-hydroch ty orothiazide orothiazide [facility] 25 mg 25 mg de 25 mg l tablet TAKE tablet TAKE tablet Clinics 1 TABLET BY 1 TABLET BY TAKE 1 MOUTH DAILY MOUTH DAILY TABLET BY AROUND THE AROUND THE MOUTH CLOCK CLOCK DAILY AROUND THE CLOCK Trintellix Trintellix No Trintellix [place] 20 mg 20 mg 20 mg [facility]i tablet TAKE tablet TAKE tablet ty 1 TABLET BY 1 TABLET BY TAKE 1 Hospita MOUTH DAILY MOUTH DAILY TABLET BY l MOUTH Clinics DAILY clonazepam clonazepam No clonazepam [place] 1 mg tablet 1 mg tablet 1 mg [facility] TAKE 1/2 TO TAKE 1/2 TO tablet ty 1 TABLET BY 1 TABLET BY TAKE 1/2 Hospita MOUTH DAILY MOUTH DAILY TO 1 l NEEDED NEEDED TABLET BY Clinics FOR ANXIETY FOR ANXIETY MOUTH DAILY NEEDED FOR ANXIETY Dexilant 60 Dexilant 60 No Dexilant [place] mg capsule, mg capsule, 60 mg [facility]i delayed delayed capsule, ty release release delayed Hospit a TAKE 1 TAKE 1 release l CAPSULE BY CAPSULE BY TAKE 1 C linics MOUTH EVERY MOUTH EVERY CAPSULE BY DAY DAY MOUTH EVERY DAY Dodex 1,000 Dodex 1,000 No Dodex [place] mcg/mL mcg/mL 1,000 Communi injection injection mcg/mL ty solution solution injection Ho spita INJECT 1 ML INJECT 1 ML solution l IN THE IN THE INJECT 1 Clinics MUSCLE ONCE MUSCLE ONCE ML IN THE A WEEK FOR A WEEK FOR MUSCLE 4 WEEKS 4 WEEKS ONCE A THEN 1 ML THEN 1 ML WEEK FOR 4 IN THE IN THE WEEKS THEN MUSCLE ONCE MUSCLE ONCE 1 ML IN A MONTH A MONTH THE MUSCLE ONCE A MONTH doxepin 10 doxepin 10 No doxepin 10 [place] mg capsule mg capsule mg capsule Communi TAKE 1 TO 5 TAKE 1 TO 5 TAKE 1 TO ty CAPSULES BY CAPSULES BY 5 CAPSULES Hospita MOUTH EVERY MOUTH EVERY BY MOUTH l NIGHT AT NIGHT AT EVERY Clinic s BEDTIME BEDTIME NIGHT AT NEEDED FOR NEEDED FOR BEDTIME SLEEP SLEEP NEEDED FOR SLEEP estradiol estradiol No estradiol [place] 0.01% (0.1 0.01% (0.1 0.01% (0.1 [facility]i mg/gram) mg/gram) mg/gram) ty vaginal vaginal vaginal Hospit a cream cream cream l INSERT 0.5 INSERT 0.5 INSERT 0.5 Clinics GRAM GRAM GRAM VAGINALLY 3 VAGINALLY 3 VAGINALLY TIMES A TIMES A 3 TIMES A WEEK AT WEEK AT WEEK AT BEDTIME BEDTIME BEDTIME eszopiclone eszopiclone No eszopiclon [place] 3 mg tablet 3 mg tablet e 3 mg Communi tablet ty [facility]ospita l Clinics levothyroxi levothyroxi No levothyrox [place] ne 25 mcg ne 25 mcg ine 25 mcg Communi tablet TAKE tablet TAKE tablet ty 1 TABLET BY 1 TABLET BY TAKE 1 Hospita MOUTH FIRST MOUTH FIRST TABLET BY l THING IN THING IN MOUTH Clinic s THE MORNING THE MORNING FIRST WITH JUST A WITH JUST A THING IN SIP OF SIP OF THE WATER. WAIT WATER. WAIT MORNING 20-30 20-30 WITH JUST MINUTES MINUTES A SIP OF BEFORE BEFORE WATER. EATING OR EATING OR WAIT 20-30 DRINKING DRINKING MINUTES ANYTHING ANYTHING BEFORE ELSE ELSE EATING OR DRINKING ANYTHING ELSE metoclopram metoclopram No metoclopra [place] aletha 10 mg aletha 10 mg mide 10 mg Communi tablet TAKE tablet TAKE tablet ty 1 TABLET BY 1 TABLET BY TAKE 1 Hospita MOUTH MOUTH TABLET BY l BEFORE BEFORE MOUTH Clinics MEALS AND MEALS AND BEFORE BEFORE BEFORE MEALS AND MEALS AND MEALS AND BEFORE AT BEDTIME AT BEDTIME MEALS AND AT BEDTIME oxcarbazepi oxcarbazepi No oxcarbazep [place] ne 300 mg ne 300 mg ine 300 mg Communi tablet TAKE tablet TAKE tablet ty 1 TABLET BY 1 TABLET BY TAKE 1 Hospita MOUTH EVERY MOUTH EVERY TABLET BY l NIGHT AT NIGHT AT MOUTH Clinic s BEDTIME BEDTIME EVERY NIGHT AT BEDTIME Ozempic Ozempic No .25mg Q1W Ozempic [place] 0.25 mg or 0.25 mg or 0.25 mg or Communi 0.5 mg (2 0.5 mg (2 0.5 mg (2 ty mg/1.5 mL) mg/1.5 mL) mg/1.5 mL) Hospita subcutaneou subcutaneou subcutaneo l s pen s pen us pen Clinics injector injector injector Inject 0.25 Inject 0.25 Inject mg every mg every 0.25 mg week by week by every week subcutaneou subcutaneou by s route. s route. subcutaneo us route. potassium potassium No potassium [place] chloride ER chloride ER chloride [facility] 20 mEq 20 mEq ER 20 mEq ty tablet,exte tablet,exte tablet,ext Hospita nded nded ended l release release release Clinic s TAKE 1 TAKE 1 TAKE 1 TABLET BY TABLET BY TABLET BY MOUTH EVERY MOUTH EVERY MOUTH DAY DAY EVERY DAY DIRECTED DIRECTED DIRECTED pramipexole pramipexole No pramipexol [place] 1 mg tablet 1 mg tablet e 1 mg Communi TAKE 1 TAKE 1 tablet ty TABLET BY TABLET BY TAKE 1 [facility] MOUTH THREE MOUTH THREE TABLET BY l TIMES DAILY TIMES DAILY MOUTH Clinics EVERY 8 EVERY 8 THREE HOURS HOURS TIMES DAILY EVERY 8 HOURS pregabalin pregabalin No pregabalin [place] 50 mg 50 mg 50 mg Communi capsule capsule capsule ty TAKE 1 TAKE 1 TAKE 1 Hospita CAPSULE BY CAPSULE BY CAPSULE BY l MOUTH THREE MOUTH THREE MOUTH Clinics TIMES DAILY TIMES DAILY THREE TIMES DAILY Rexulti 2 Rexulti 2 No Rexulti 2 [place] mg tablet mg tablet mg tablet Communi TAKE 1 TAKE 1 TAKE 1 ty TABLET BY TABLET BY TABLET BY Hospita MOUTH EVERY MOUTH EVERY MOUTH l NIGHT AT NIGHT AT EVERY Clinic s BEDTIME BEDTIME NIGHT AT BEDTIME sucralfate sucralfate No sucralfate [place] 1 gram 1 gram 1 gram [facility] tablet TAKE tablet TAKE tablet ty 1 TABLET BY 1 TABLET BY TAKE 1 Hospita MOUTH MOUTH TABLET BY l BEFORE BEFORE MOUTH Clinics MEALS AND MEALS AND BEFORE AT BEDTIME AT BEDTIME MEALS AND AT BEDTIME triamterene triamterene No triamteren [place] 37.5 37.5 e 37.5 Communi mg-hydrochl mg-hydrochl mg-hydroch ty orothiazide orothiazide [facility] 25 mg 25 mg de 25 mg l tablet TAKE tablet TAKE tablet Clinics 1 TABLET BY 1 TABLET BY TAKE 1 MOUTH DAILY MOUTH DAILY TABLET BY AROUND THE AROUND THE MOUTH CLOCK CLOCK DAILY AROUND THE CLOCK Tr[facility]ellix Trintellix No Trintellix [place] 20 mg 20 mg 20 mg Communi tablet TAKE tablet TAKE tablet ty 1 TABLET BY 1 TABLET BY TAKE 1 Hospita MOUTH DAILY MOUTH DAILY TABLET BY l MOUTH Clinics DAILY valacyclovi valacyclovi No 1 Q12H valacyclov [place] r 1 gram r 1 gram ir 1 gram [facility] tablet Take tablet Take tablet ty 1 tablet 1 tablet Take 1 Hospi ta every 12 every 12 tablet l hours by hours by every 12 Cli nics oral route oral route hours by for 10 for 10 oral route days. days. for 10 days. clonazepam clonazepam No clonazepam [place] 1 mg tablet 1 mg tablet 1 mg [facility] TAKE 1/2 TO TAKE 1/2 TO tablet ty 1 TABLET BY 1 TABLET BY TAKE 1/2 Hospita MOUTH DAILY MOUTH DAILY TO 1 l NEEDED NEEDED TABLET BY Clinics FOR ANXIETY FOR ANXIETY MOUTH DAILY NEEDED FOR ANXIETY Dodex 1,000 Dodex 1,000 No Dodex [place] mcg/mL mcg/mL 1,000 Communi injection injection mcg/mL ty solution solution injection Ho [facility] INJECT 1 ML INJECT 1 ML solution l IN THE IN THE INJECT 1 Clinics MUSCLE ONCE MUSCLE ONCE ML IN THE A WEEK FOR A WEEK FOR MUSCLE 4 WEEKS 4 WEEKS ONCE A THEN 1 ML THEN 1 ML WEEK FOR 4 IN THE IN THE WEEKS THEN MUSCLE ONCE MUSCLE ONCE 1 ML IN A MONTH A MONTH THE MUSCLE ONCE A MONTH doxepin 10 doxepin 10 No doxepin 10 [place] mg capsule mg capsule mg capsule Communi TAKE 1 TO 5 TAKE 1 TO 5 TAKE 1 TO ty CAPSULES BY CAPSULES BY 5 CAPSULES Hospita MOUTH EVERY MOUTH EVERY BY MOUTH l NIGHT AT NIGHT AT EVERY Clinic s BEDTIME BEDTIME NIGHT AT NEEDED FOR NEEDED FOR BEDTIME SLEEP SLEEP NEEDED FOR SLEEP hydrochloro hydrochloro No 1 Q1D hydrochlor [place] thiazide thiazide othiazide [facility] 12.5 mg 12.5 mg 12.5 mg ty tablet Take tablet Take tablet Hospita 1 tablet 1 tablet Take 1 l every day every day tablet Cli nics by oral by oral every day route for route for by oral 90 days. 90 days. route for 90 days. Lomaira 8 Lomaira 8 No Lomaira 8 [place] mg tablet mg tablet mg tablet Communi TAKE 1 TAKE 1 TAKE 1 ty TABLET BY TABLET BY TABLET BY Hospita MOUTH TWICE MOUTH TWICE MOUTH l A DAY A DAY TWICE A Clinics DAY metoclopram metoclopram No metoclopra [place] aletha 10 mg aletha 10 mg mide 10 mg Communi tablet TAKE tablet TAKE tablet ty 1 TABLET BY 1 TABLET BY TAKE 1 Hospita MOUTH MOUTH TABLET BY l BEFORE BEFORE MOUTH Clinics MEALS AND MEALS AND BEFORE BEFORE BEFORE MEALS AND MEALS AND MEALS AND BEFORE AT BEDTIME AT BEDTIME MEALS AND AT BEDTIME oxcarbazepi oxcarbazepi No oxcarbazep [place] ne 300 mg ne 300 mg ine 300 mg Communi tablet TAKE tablet TAKE tablet ty 1 TABLET BY 1 TABLET BY TAKE 1 Hospita MOUTH EVERY MOUTH EVERY TABLET BY l NIGHT AT NIGHT AT MOUTH Clinic s BEDTIME BEDTIME EVERY NIGHT AT BEDTIME Ozempic Ozempic No Ozempic [place] 0.25 mg or 0.25 mg or 0.25 mg or Communi 0.5 mg (2 0.5 mg (2 0.5 mg (2 ty mg/1.5 mL) mg/1.5 mL) mg/1.5 mL) Hospita subcutaneou subcutaneou subcutaneo l s pen s pen [facility] injector injector injector Inject 0.25 Inject 0.25 Inject mg every mg every 0.25 mg week by week by every week subcutaneou subcutaneou by s route. s route. subcutaneo us route. potassium potassium No potassium [place] chloride ER chloride ER chloride Communi 20 mEq 20 mEq ER 20 mEq ty tablet,exte tablet,exte tablet,ext Hospita nded nded ended l release release release Clinic s TAKE 1 TAKE 1 TAKE 1 TABLET BY TABLET BY TABLET BY MOUTH EVERY MOUTH EVERY MOUTH DAY DAY EVERY DAY DIRECTED DIRECTED DIRECTED pramipexole pramipexole No pramipexol [place] 1 mg tablet 1 mg tablet e 1 mg Communi TAKE 1 TAKE 1 tablet ty TABLET BY TABLET BY TAKE 1 [facility] MOUTH THREE MOUTH THREE TABLET BY l TIMES DAILY TIMES DAILY MOUTH Clinics EVERY 8 EVERY 8 THREE HOURS HOURS TIMES DAILY EVERY 8 HOURS pregabalin pregabalin No pregabalin [place] 50 mg 50 mg 50 mg Communi capsule capsule capsule ty TAKE 1 TAKE 1 TAKE 1 Hospita CAPSULE BY CAPSULE BY CAPSULE BY l MOUTH THREE MOUTH THREE MOUTH Clinics TIMES DAILY TIMES DAILY THREE TIMES DAILY Rexulti 2 Rexulti 2 No Rexulti 2 [place] mg tablet mg tablet mg tablet Communi TAKE 1 TAKE 1 TAKE 1 ty TABLET BY TABLET BY TABLET BY Hospita MOUTH EVERY MOUTH EVERY MOUTH l NIGHT AT NIGHT AT EVERY Clinic s BEDTIME BEDTIME NIGHT AT BEDTIME sucralfate sucralfate No sucralfate [place] 1 gram 1 gram 1 gram [facility]i tablet TAKE tablet TAKE tablet ty 1 TABLET BY 1 TABLET BY TAKE 1 Hospita MOUTH MOUTH TABLET BY l BEFORE BEFORE MOUTH Clinics MEALS AND MEALS AND BEFORE AT BEDTIME AT BEDTIME MEALS AND AT BEDTIME topiramate topiramate No topiramate [place] 25 mg 25 mg 25 mg Communi tablet TAKE tablet TAKE tablet ty 1 TABLET 1 TABLET TAKE 1 Hospi ta (25 MG (25 MG TABLET (25 l TOTAL) BY TOTAL) BY MG TOTAL) Clinics MOUTH IN MOUTH IN BY MOUTH THE MORNING THE MORNING IN THE AND IN THE AND IN THE MORNING EVENING EVENING AND IN THE EVENING trazodone trazodone No trazodone [place] 50 mg 50 mg 50 mg Communi tablet tablet tablet ty Hospita l Clinics Trintellix Trintellix No Trintellix [place] 20 mg 20 mg 20 mg Communi tablet TAKE tablet TAKE tablet ty 1 TABLET BY 1 TABLET BY TAKE 1 Hospita MOUTH DAILY MOUTH DAILY TABLET BY l MOUTH Clinics DAILY valacyclovi valacyclovi No valacyclov [place] r 1 gram r 1 gram ir 1 gram [facility] tablet TAKE tablet TAKE tablet ty 1 TABLET BY 1 TABLET BY TAKE 1 Hospita MOUTH EVERY MOUTH EVERY TABLET BY l 12 HOURS 12 HOURS MOUTH Clinic s FOR 10 DAYS FOR 10 DAYS EVERY 12 HOURS FOR 10 DAYS clonazepam clonazepam No clonazepam [place] 1 mg tablet 1 mg tablet 1 mg [facility] TAKE 1/2 TO TAKE 1/2 TO tablet ty 1 TABLET BY 1 TABLET BY TAKE 1/2 Hospita MOUTH DAILY MOUTH DAILY TO 1 l NEEDED NEEDED TABLET BY Clinics FOR ANXIETY FOR ANXIETY MOUTH DAILY NEEDED FOR ANXIETY cyanocobala cyanocobala No cyanocobal [place] min (vit min (vit jordan (vit [facility] B-12) 1,000 B-12) 1,000 B-12) ty mcg/mL mcg/mL 1,000 Hospita injection injection mcg/mL l solution solution injection Cl inics INJECT 1 ML INJECT 1 ML solution (CC) (CC) INJECT 1 INTRAMUSCUL INTRAMUSCUL ML (CC) JULIA ONCE A JULIA ONCE A INTRAMUSCU WEEK FOR 4 WEEK FOR 4 LARLY ONCE WEEKS, THEN WEEKS, THEN A WEEK FOR 1ML ONCE A 1ML ONCE A 4 WEEKS, MONTH TO MONTH TO THEN 1ML BUTTOCK, BUTTOCK, ONCE A THIGH OR THIGH OR MONTH TO UPPER ARM UPPER ARM BUTTOCK, THIGH OR UPPER ARM doxepin 10 doxepin 10 No doxepin 10 [place] mg capsule mg capsule mg capsule Communi TAKE 1 TO 5 TAKE 1 TO 5 TAKE 1 TO ty CAPSULES BY CAPSULES BY 5 CAPSULES Hospita MOUTH EVERY MOUTH EVERY BY MOUTH l NIGHT AT NIGHT AT EVERY Clinic s BEDTIME BEDTIME NIGHT AT NEEDED FOR NEEDED FOR BEDTIME SLEEP SLEEP NEEDED FOR SLEEP gabapentin gabapentin No gabapentin [place] 300 mg 300 mg 300 mg Communi capsule capsule capsule ty TAKE 1 TO 2 TAKE 1 TO 2 TAKE 1 TO Hospita CAPSULES BY CAPSULES BY 2 CAPSULES l MOUTH EVERY MOUTH EVERY BY MOUTH Clinics NIGHT AT NIGHT AT EVERY BEDTIME BEDTIME NIGHT AT NEEDED FOR NEEDED FOR BEDTIME INSOMNIA INSOMNIA NEEDED FOR INSOMNIA [place] 8 [place] 8 No [place] 8 [place] mg tablet mg tablet mg tablet Communi TAKE 1 TAKE 1 TAKE 1 ty TABLET BY TABLET BY TABLET BY Hospita MOUTH TWICE MOUTH TWICE MOUTH l A DAY A DAY TWICE A Clinics DAY metoclopram metoclopram No metoclopra [place] aletha 10 mg aletha 10 mg mide 10 mg Communi tablet TAKE tablet TAKE tablet ty 1 TABLET BY 1 TABLET BY TAKE 1 Hospita MOUTH MOUTH TABLET BY l BEFORE BEFORE MOUTH Clinics MEALS AND MEALS AND BEFORE BEFORE BEFORE MEALS AND MEALS AND MEALS AND BEFORE AT BEDTIME AT BEDTIME MEALS AND AT BEDTIME oxcarbazepi oxcarbazepi No oxcarbazep [place] ne 300 mg ne 300 mg ine 300 mg Communi tablet TAKE tablet TAKE tablet ty 1 TABLET BY 1 TABLET BY TAKE 1 Hospita MOUTH EVERY MOUTH EVERY TABLET BY l NIGHT AT NIGHT AT MOUTH Clinic s BEDTIME BEDTIME EVERY NIGHT AT BEDTIME Ozempic Ozempic No Ozempic [place] 0.25 mg or 0.25 mg or 0.25 mg or Communi 0.5 mg (2 0.5 mg (2 0.5 mg (2 ty mg/3 mL) mg/3 mL) mg/3 mL) [facility] subcutaneou subcutaneou subcutaneo l s pen s pen pen [facility] injector injector injector INJECT 0.5 INJECT 0.5 INJECT 0.5 MG MG MG SUBCUTANEOU SUBCUTANEOU SUBCUTANEO SLY ONCE A SLY ONCE A USLY ONCE WEEK WEEK A WEEK potassium potassium No potassium [place] chloride ER chloride ER chloride Communi 20 mEq 20 mEq ER 20 mEq ty tablet,exte tablet,exte tablet,ext Hospita nded nded ended l release release release Clinic s TAKE 1 TAKE 1 TAKE 1 TABLET BY TABLET BY TABLET BY MOUTH EVERY MOUTH EVERY MOUTH DAY DAY EVERY DAY DIRECTED DIRECTED DIRECTED pramipexole pramipexole No pramipexol [place] 1 mg tablet 1 mg tablet e 1 mg Communi TAKE 1 TAKE 1 tablet ty TABLET BY TABLET BY TAKE 1 [facility] MOUTH THREE MOUTH THREE TABLET BY l TIMES DAILY TIMES DAILY MOUTH Clinics EVERY 8 EVERY 8 THREE HOURS HOURS TIMES DAILY EVERY 8 HOURS pregabalin pregabalin No pregabalin [place] 50 mg 50 mg 50 mg Communi capsule capsule capsule ty TAKE 1 TAKE 1 TAKE 1 Hospita CAPSULE BY CAPSULE BY CAPSULE BY l MOUTH THREE MOUTH THREE MOUTH Clinics TIMES DAILY TIMES DAILY THREE TIMES DAILY Rexulti 2 Rexulti 2 No Rexulti 2 [place] mg tablet mg tablet mg tablet Communi TAKE 1 TAKE 1 TAKE 1 ty TABLET BY TABLET BY TABLET BY Hospita MOUTH EVERY MOUTH EVERY MOUTH l NIGHT AT NIGHT AT EVERY Clinic s BEDTIME BEDTIME NIGHT AT BEDTIME spironolact spironolact No 1 Q1D spironolac [place] one 25 mg one 25 mg tone 25 mg Communi tablet Take tablet Take tablet ty 1 tablet 1 tablet Take 1 Hospi ta every day every day tablet l by oral by oral every day Clin ics route for route for by oral 30 days. 30 days. route for 30 days. sucralfate sucralfate No sucralfate [place] 1 gram 1 gram 1 gram Communi tablet TAKE tablet TAKE tablet ty 1 TABLET BY 1 TABLET BY TAKE 1 Hospita MOUTH MOUTH TABLET BY l BEFORE BEFORE MOUTH Clinics MEALS AND MEALS AND BEFORE AT BEDTIME AT BEDTIME MEALS AND AT BEDTIME topiramate topiramate No topiramate [place] 25 mg 25 mg 25 mg [facility]i tablet TAKE tablet TAKE tablet ty 1 TABLET BY 1 TABLET BY TAKE 1 Hospita MOUTH 1 MOUTH 1 TABLET BY l TIME EACH TIME EACH MOUTH 1 Cl inics DAY. DAY. TIME EACH DAY. trazodone trazodone No trazodone [place] 50 mg 50 mg 50 mg Communi tablet TAKE tablet TAKE tablet ty 1 TABLET BY 1 TABLET BY TAKE 1 Hospita MOUTH EVERY MOUTH EVERY TABLET BY l DAY AT DAY AT MOUTH Clinics NIGHT NIGHT EVERY DAY AT NIGHT Trintellix Trintellix No Trintellix [place] 20 mg 20 mg 20 mg Communi tablet TAKE tablet TAKE tablet ty 1 TABLET BY 1 TABLET BY TAKE 1 Hospita MOUTH DAILY MOUTH DAILY TABLET BY l MOUTH Clinics DAILY valacyclovi valacyclovi No valacyclov [place] r 1 gram r 1 gram ir 1 gram [facility] tablet TAKE tablet TAKE tablet ty 1 TABLET BY 1 TABLET BY TAKE 1 Hospita MOUTH EVERY MOUTH EVERY TABLET BY l 12 HOURS 12 HOURS MOUTH Clinic s FOR 10 DAYS FOR 10 DAYS EVERY 12 HOURS FOR 10 DAYS clonazepam clonazepam No clonazepam [place] 1 mg tablet 1 mg tablet 1 mg [facility] TAKE 1/2 TO TAKE 1/2 TO tablet ty 1 TABLET BY 1 TABLET BY TAKE 1/2 Hospita MOUTH DAILY MOUTH DAILY TO 1 l NEEDED NEEDED TABLET BY Clinics FOR ANXIETY FOR ANXIETY MOUTH DAILY NEEDED FOR ANXIETY cyanocobala cyanocobala No cyanocobal [place] min (vit min (vit jordan (vit [facility] B-12) 1,000 B-12) 1,000 B-12) ty mcg/mL mcg/mL 1,000 Hospita injection injection mcg/mL l solution solution injection Cl inics INJECT 1 ML INJECT 1 ML solution (CC) (CC) INJECT 1 INTRAMUSCUL INTRAMUSCUL ML (CC) JULIA ONCE A JULIA ONCE A INTRAMUSCU WEEK FOR 4 WEEK FOR 4 LARLY ONCE WEEKS, THEN WEEKS, THEN A WEEK FOR 1ML ONCE A 1ML ONCE A 4 WEEKS, MONTH TO MONTH TO THEN 1ML BUTTOCK, BUTTOCK, ONCE A THIGH OR THIGH OR MONTH TO UPPER ARM UPPER ARM BUTTOCK, THIGH OR UPPER ARM doxepin 10 doxepin 10 No doxepin 10 [place] mg capsule mg capsule mg capsule Communi TAKE 1 TO 5 TAKE 1 TO 5 TAKE 1 TO ty CAPSULES BY CAPSULES BY 5 CAPSULES Hospita MOUTH EVERY MOUTH EVERY BY MOUTH l NIGHT AT NIGHT AT EVERY Clinic s BEDTIME BEDTIME NIGHT AT NEEDED FOR NEEDED FOR BEDTIME SLEEP SLEEP NEEDED FOR SLEEP gabapentin gabapentin No gabapentin [place] 300 mg 300 mg 300 mg Communi capsule capsule capsule ty TAKE 1 TAKE 1 TAKE 1 Hospita CAPSULE BY CAPSULE BY CAPSULE BY l MOUTH EVERY MOUTH EVERY MOUTH Clinics NIGHT AT NIGHT AT EVERY BEDTIME BEDTIME NIGHT AT NEEDED FOR NEEDED FOR BEDTIME INSOMNIA INSOMNIA NEEDED FOR INSOMNIA [place] 8 [place] 8 No [place] 8 [place] mg tablet mg tablet mg tablet Communi TAKE 1 TAKE 1 TAKE 1 ty TABLET BY TABLET BY TABLET BY Hospita MOUTH TWICE MOUTH TWICE MOUTH l A DAY A DAY TWICE A Clinics DAY losartan 25 losartan 25 No losartan [place] mg tablet mg tablet 25 mg Comm uni TAKE 1 TAKE 1 tablet ty TABLET BY TABLET BY TAKE 1 [facility] MOUTH EVERY MOUTH EVERY TABLET BY l DAY DAY MOUTH Clinics EVERY DAY metoclopram metoclopram No metoclopra [place] aletha 10 mg aletha 10 mg mide 10 mg Communi tablet TAKE tablet TAKE tablet ty 1 TABLET BY 1 TABLET BY TAKE 1 Hospita MOUTH MOUTH TABLET BY l BEFORE BEFORE MOUTH Clinics MEALS AND MEALS AND BEFORE BEFORE BEFORE MEALS AND MEALS AND MEALS AND BEFORE AT BEDTIME AT BEDTIME MEALS AND AT BEDTIME neomycin-po neomycin-po No neomycin-p [place] lymyxin-dex lymyxin-dex olymyxin-d Communi ameth 3.5 ameth 3.5 exameth ty mg/mL-10,00 mg/mL-10,00 3.5 H ospita 0 0 mg/mL-10,0 l unit/mL-0.1 unit/mL-0.1 00 C linics % eye drops % eye drops unit/mL-0. INSTILL 1 INSTILL 1 1% eye DROP INTO DROP INTO drops AFFECTED AFFECTED INSTILL 1 EYE(S) BY EYE(S) BY DROP INTO OPHTHALMIC OPHTHALMIC AFFECTED ROUTE EVERY ROUTE EVERY EYE(S) BY 4-6 HOURS X 4-6 HOURS X OPHTHALMIC 7 DAYS 7 DAYS ROUTE EVERY 4-6 HOURS X 7 DAYS oxcarbazepi oxcarbazepi No oxcarbazep [place] ne 300 mg ne 300 mg ine 300 mg Communi tablet TAKE tablet TAKE tablet ty 1 TABLET BY 1 TABLET BY TAKE 1 Hospita MOUTH EVERY MOUTH EVERY TABLET BY l NIGHT AT NIGHT AT MOUTH Clinic s BEDTIME BEDTIME EVERY NIGHT AT BEDTIME Ozempic Ozempic No Ozempic [place] 0.25 mg or 0.25 mg or 0.25 mg or Communi 0.5 mg (2 0.5 mg (2 0.5 mg (2 ty mg/3 mL) mg/3 mL) mg/3 mL) [facility] subcutaneou subcutaneou subcutaneo l s pen s pen us pen Clinics injector injector injector INJECT 0.5 INJECT 0.5 INJECT 0.5 MG MG MG SUBCUTANEOU SUBCUTANEOU SUBCUTANEO SLY ONCE A SLY ONCE A USLY ONCE WEEK WEEK A WEEK potassium potassium No potassium [place] chloride ER chloride ER chloride Communi 20 mEq 20 mEq ER 20 mEq ty tablet,exte tablet,exte tablet,ext Hospita nded nded ended l release release release Clinic s TAKE 1 TAKE 1 TAKE 1 TABLET BY TABLET BY TABLET BY MOUTH EVERY MOUTH EVERY MOUTH DAY DAY EVERY DAY DIRECTED DIRECTED DIRECTED pramipexole pramipexole No pramipexol [place] 1 mg tablet 1 mg tablet e 1 mg Communi TAKE 1 TAKE 1 tablet ty TABLET BY TABLET BY TAKE 1 [facility] MOUTH THREE MOUTH THREE TABLET BY l TIMES DAILY TIMES DAILY MOUTH Clinics EVERY 8 EVERY 8 THREE HOURS HOURS TIMES DAILY EVERY 8 HOURS pregabalin pregabalin No pregabalin [place] 50 mg 50 mg 50 mg Communi capsule capsule capsule ty TAKE 1 TAKE 1 TAKE 1 Hospita CAPSULE BY CAPSULE BY CAPSULE BY l MOUTH THREE MOUTH THREE MOUTH Clinics TIMES DAILY TIMES DAILY THREE TIMES DAILY Rexulti 2 Rexulti 2 No Rexulti 2 [place] mg tablet mg tablet mg tablet Communi TAKE 1 TAKE 1 TAKE 1 ty TABLET BY TABLET BY TABLET BY Hospita MOUTH EVERY MOUTH EVERY MOUTH l NIGHT AT NIGHT AT EVERY Clinic s BEDTIME BEDTIME NIGHT AT BEDTIME sodium,pota sodium,pota No sodium,pot [place] ssium,mag ssium,mag assium,mag Communi sulfates sulfates sulfates ty 17.5 17.5 17.5 Hospita gram-3.13 gram-3.13 gram-3.13 l gram-1.6 gram-1.6 gram-1.6 Cli nics gram oral gram oral gram oral soln MIX soln MIX soln MIX AND DRINK AND DRINK AND DRINK DIRECTED DIRECTED DIRECTED spironolact spironolact No 1 BID spironolac [place] one 50 mg one 50 mg tone 50 mg Communi tablet Take tablet Take tablet ty 1 tablet 1 tablet Take 1 Hospi ta twice a day twice a day tablet l by oral by oral twice a Clinic s route as route as day by directed directed oral route for 30 for 30 as days. days. directed for 30 days. sucralfate sucralfate No sucralfate [place] 1 gram 1 gram 1 gram Communi tablet TAKE tablet TAKE tablet ty 1 TABLET BY 1 TABLET BY TAKE 1 Hospita MOUTH MOUTH TABLET BY l BEFORE BEFORE MOUTH Clinics MEALS AND MEALS AND BEFORE AT BEDTIME AT BEDTIME MEALS AND AT BEDTIME topiramate topiramate No topiramate [place] 25 mg 25 mg 25 mg Communi tablet TAKE tablet TAKE tablet ty ONE TABLET ONE TABLET TAKE ONE Hospita BY MOUTH IN BY MOUTH IN TABLET BY l THE MORNING THE MORNING MOUTH IN Clinics AND ONE AND ONE THE TABLET IN TABLET IN MORNING THE EVENING THE EVENING AND ONE TABLET IN THE EVENING trazodone trazodone No trazodone [place] 50 mg 50 mg 50 mg Communi tablet TAKE tablet TAKE tablet ty 1 TABLET BY 1 TABLET BY TAKE 1 Hospita MOUTH EVERY MOUTH EVERY TABLET BY l DAY AT DAY AT MOUTH Clinics NIGHT NIGHT EVERY DAY AT NIGHT Trintellix Trintellix No Trintellix [place] 20 mg 20 mg 20 mg Communi tablet TAKE tablet TAKE tablet ty 1 TABLET BY 1 TABLET BY TAKE 1 Hospita MOUTH DAILY MOUTH DAILY TABLET BY l MOUTH Clinics DAILY valacyclovi valacyclovi No valacyclov [place] r 1 gram r 1 gram ir 1 gram Co mmuni tablet TAKE tablet TAKE tablet ty 1 TABLET BY 1 TABLET BY TAKE 1 Hospita MOUTH EVERY MOUTH EVERY TABLET BY l 12 HOURS 12 HOURS MOUTH Clinic s FOR 10 DAYS FOR 10 DAYS EVERY 12 HOURS FOR 10 DAYS Zithromax Zithromax No Zithromax [place] Z-Jeffrey 250 Z-Jeffrey 250 Z-Jeffrey 250 Communi mg tablet mg tablet mg tablet ty TAKE 2 TAKE 2 TAKE 2 Hospita TABLETS TABLETS TABLETS l (500 MG) BY (500 MG) BY (500 MG) Clinics ORAL ROUTE ORAL ROUTE BY ORAL ONCE DAILY ONCE DAILY ROUTE ONCE FOR 1 DAY FOR 1 DAY DAILY FOR THEN 1 THEN 1 1 DAY THEN TABLET (250 TABLET (250 1 TABLET MG) BY ORAL MG) BY ORAL (250 MG) ROUTE ONCE ROUTE ONCE BY ORAL DAILY FOR 4 DAILY FOR 4 ROUTE ONCE DAYS DAYS DAILY FOR 4 DAYS amoxicillin amoxicillin No 1 Q12H amoxicilli [place] [phone] Communi mg-potassiu mg-potassiu mg-potassi ty [facility] cl[facility] clavulanate clavulanat l 125 mg 125 mg e 125 mg Clinics tablet Take tablet Take tablet 1 tablet 1 tablet Take 1 every 12 every 12 tablet hours by hours by every 12 oral route oral route hours by as directed as directed oral route for 10 for 10 as days. days. directed for 10 days. clonazepam clonazepam No clonazepam [place] 1 mg tablet 1 mg tablet 1 mg C ommuni TAKE 1/2 TO TAKE 1/2 TO tablet ty 1 TABLET BY 1 TABLET BY TAKE 1/2 Hospita MOUTH DAILY MOUTH DAILY TO 1 l NEEDED NEEDED TABLET BY Clinics FOR ANXIETY FOR ANXIETY MOUTH DAILY NEEDED FOR ANXIETY cyanocobala cyanocobala No cyanocobal [place] min (vit min (vit jordan (vit Co mmuni B-12) 1,000 B-12) 1,000 B-12) ty mcg/mL mcg/mL 1,000 Hospita injection injection mcg/mL l solution solution injection Cl inics INJECT 1 ML INJECT 1 ML solution (CC) (CC) INJECT 1 INTRAMUSCUL INTRAMUSCUL ML (CC) JULIA ONCE A JULIA ONCE A INTRAMUSCU WEEK FOR 4 WEEK FOR 4 LARLY ONCE WEEKS, THEN WEEKS, THEN A WEEK FOR 1ML ONCE A 1ML ONCE A 4 WEEKS, MONTH TO MONTH TO THEN 1ML BUTTOCK, BUTTOCK, ONCE A THIGH OR THIGH OR MONTH TO UPPER ARM UPPER ARM BUTTOCK, THIGH OR UPPER ARM doxepin 10 doxepin 10 No doxepin 10 [place] mg capsule mg capsule mg capsule Communi TAKE 1 TO 5 TAKE 1 TO 5 TAKE 1 TO ty CAPSULES BY CAPSULES BY 5 CAPSULES Hospita MOUTH EVERY MOUTH EVERY BY MOUTH l NIGHT AT NIGHT AT EVERY Clinic s BEDTIME BEDTIME NIGHT AT NEEDED FOR NEEDED FOR BEDTIME SLEEP SLEEP NEEDED FOR SLEEP gabapentin gabapentin No gabapentin [place] 300 mg 300 mg 300 mg Communi capsule capsule capsule ty TAKE 1 TAKE 1 TAKE 1 Hospita CAPSULE BY CAPSULE BY CAPSULE BY l MOUTH EVERY MOUTH EVERY MOUTH Clinics NIGHT AT NIGHT AT EVERY BEDTIME BEDTIME NIGHT AT NEEDED FOR NEEDED FOR BEDTIME INSOMNIA INSOMNIA NEEDED FOR INSOMNIA Lomaira 8 Lomaira 8 No Lomaira 8 [place] mg tablet mg tablet mg tablet Communi TAKE 1 TAKE 1 TAKE 1 ty TABLET BY TABLET BY TABLET BY Hospita MOUTH TWICE MOUTH TWICE MOUTH l A DAY A DAY TWICE A Clinics DAY loratadine loratadine No 1 Q1D loratadine [place] 10 mg 10 mg 10 mg Communi tablet Take tablet Take tablet ty 1 tablet 1 tablet Take 1 Hospi ta every day every day tablet l by oral by oral every day Clin ics route for route for by oral 30 days. 30 days. route for 30 days. losartan 25 losartan 25 No 1 Q1D losartan [place] mg tablet mg tablet 25 mg Comm uni Take 1 Take 1 tablet ty tablet tablet Take 1 Hospita every day every day tablet l by oral by oral every day Clin ics route as route as by oral directed directed route as for 30 for 30 directed days. days. for 30 days. metoclopram metoclopram No metoclopra [place] aletha 10 mg aletha 10 mg mide 10 mg Communi tablet TAKE tablet TAKE tablet ty 1 TABLET BY 1 TABLET BY TAKE 1 Hospita MOUTH MOUTH TABLET BY l BEFORE BEFORE MOUTH Clinics MEALS AND MEALS AND BEFORE BEFORE BEFORE MEALS AND MEALS AND MEALS AND BEFORE AT BEDTIME AT BEDTIME MEALS AND AT BEDTIME neomycin-po neomycin-po No neomycin-p [place] lymyxin-dex lymyxin-dex olymyxin-d Communi ameth 3.5 ameth 3.5 exameth ty mg/mL-10,00 mg/mL-10,00 3.5 H ospita 0 0 mg/mL-10,0 l unit/mL-0.1 unit/mL-0.1 00 C linics % eye drops % eye drops unit/mL-0. INSTILL 1 INSTILL 1 1% eye DROP INTO DROP INTO drops AFFECTED AFFECTED INSTILL 1 EYE(S) BY EYE(S) BY DROP INTO OPHTHALMIC OPHTHALMIC AFFECTED ROUTE EVERY ROUTE EVERY EYE(S) BY 4-6 HOURS X 4-6 HOURS X OPHTHALMIC 7 DAYS 7 DAYS ROUTE EVERY 4-6 HOURS X 7 DAYS oxcarbazepi oxcarbazepi No oxcarbazep [place] ne 300 mg ne 300 mg ine 300 mg Communi tablet TAKE tablet TAKE tablet ty 1 TABLET BY 1 TABLET BY TAKE 1 Hospita MOUTH EVERY MOUTH EVERY TABLET BY l NIGHT AT NIGHT AT MOUTH Clinic s BEDTIME BEDTIME EVERY NIGHT AT BEDTIME Ozempic Ozempic No Ozempic [place] 0.25 mg or 0.25 mg or 0.25 mg or Communi 0.5 mg (2 0.5 mg (2 0.5 mg (2 ty mg/3 mL) mg/3 mL) mg/3 mL) [facility] subcutaneou subcutaneou subcutaneo l s pen s pen pen Clinics injector injector injector INJECT 0.5 INJECT 0.5 INJECT 0.5 MG MG MG SUBCUTANEOU SUBCUTANEOU SUBCUTANEO SLY ONCE A SLY ONCE A USLY ONCE WEEK WEEK A WEEK pramipexole pramipexole No pramipexol [place] 1 mg tablet 1 mg tablet e 1 mg Communi TAKE 1 TAKE 1 tablet ty TABLET BY TABLET BY TAKE 1 [facility]anna MOUTH THREE MOUTH THREE TABLET BY l TIMES DAILY TIMES DAILY MOUTH Clinics EVERY 8 EVERY 8 THREE HOURS HOURS TIMES DAILY EVERY 8 HOURS pregabalin pregabalin No pregabalin [place] 50 mg 50 mg 50 mg Communi capsule capsule capsule ty TAKE 1 TAKE 1 TAKE 1 Hospita CAPSULE BY CAPSULE BY CAPSULE BY l MOUTH THREE MOUTH THREE MOUTH Clinics TIMES DAILY TIMES DAILY THREE TIMES DAILY Rexulti 2 Rexulti 2 No Rexulti 2 [place] mg tablet mg tablet mg tablet Communi TAKE 1 TAKE 1 TAKE 1 ty TABLET BY TABLET BY TABLET BY Hospita MOUTH EVERY MOUTH EVERY MOUTH l NIGHT AT NIGHT AT EVERY Clinic s BEDTIME BEDTIME NIGHT AT BEDTIME sodium,pota sodium,pota No sodium,pot [place] ssium,mag ssium,mag assium,mag Communi sulfates sulfates sulfates ty 17.5 17.5 17.5 Hospita gram-3.13 gram-3.13 gram-3.13 l gram-1.6 gram-1.6 gram-1.6 Cli nics gram oral gram oral gram oral soln MIX soln MIX soln MIX AND DRINK AND DRINK AND DRINK DIRECTED DIRECTED DIRECTED spironolact spironolact No spironolac [place] one 50 mg one 50 mg tone 50 mg Communi tablet TAKE tablet TAKE tablet ty 1 TABLET BY 1 TABLET BY TAKE 1 Hospita MOUTH TWICE MOUTH TWICE TABLET BY l DAILY DAILY MOUTH Clinic s DIRECTED DIRECTED TWICE DAILY DIRECTED sucralfate sucralfate No sucralfate [place] 1 gram 1 gram 1 gram Communi tablet TAKE tablet TAKE tablet ty 1 TABLET BY 1 TABLET BY TAKE 1 Hospita MOUTH MOUTH TABLET BY l BEFORE BEFORE MOUTH Clinics MEALS AND MEALS AND BEFORE AT BEDTIME AT BEDTIME MEALS AND AT BEDTIME topiramate topiramate No topiramate [place] 25 mg 25 mg 25 mg Communi tablet TAKE tablet TAKE tablet ty ONE TABLET ONE TABLET TAKE ONE Hospita BY MOUTH IN BY MOUTH IN TABLET BY l THE MORNING THE MORNING MOUTH IN Clinics AND ONE AND ONE THE TABLET IN TABLET IN MORNING THE EVENING THE EVENING AND ONE TABLET IN THE EVENING trazodone trazodone No trazodone [place] 50 mg 50 mg 50 mg Communi tablet TAKE tablet TAKE tablet ty 1 TABLET BY 1 TABLET BY TAKE 1 Hospita MOUTH EVERY MOUTH EVERY TABLET BY l DAY AT DAY AT MOUTH Clinics NIGHT NIGHT EVERY DAY AT NIGHT Trintellix Trintellix No Trintellix [place] 10 mg 10 mg 10 mg Communi tablet tablet tablet ty Hospita l Clinics Trintellix Trintellix No Trintellix [place] 20 mg 20 mg 20 mg Communi tablet TAKE tablet TAKE tablet ty 1 TABLET BY 1 TABLET BY TAKE 1 Hospita MOUTH DAILY MOUTH DAILY TABLET BY l MOUTH Clinics DAILY valacyclovi valacyclovi No valacyclov [place] r 1 gram r 1 gram ir 1 gram Co mmuni tablet TAKE tablet TAKE tablet ty 1 TABLET BY 1 TABLET BY TAKE 1 Hospita MOUTH EVERY MOUTH EVERY TABLET BY l 12 HOURS 12 HOURS MOUTH Clinic s FOR 10 DAYS FOR 10 DAYS EVERY 12 HOURS FOR 10 DAYS acetaminoph acetaminoph No acetaminop [place] en 300 en 300 hen 300 Communi mg-codeine mg-codeine mg-codeine ty 30 mg 30 mg 30 mg Hospita tablet TK 1 tablet TK 1 tablet TK l T PO BID T PO BID 1 T PO BID C linics PRN PRN PRN butalbital- butalbital- No butalbital [place] acetaminoph acetaminoph -acetamino Communi en-caffeine en-caffeine phen-caffe ty 50 mg-325 50 mg-325 ine 50 Hos [facility]anna mg-40 mg mg-40 mg mg-325 l tablet TK 1 tablet TK 1 mg-40 mg Clinics T PO QID T PO QID tablet TK PRN. PRN. 1 T PO QID PRN. cholecalcif cholecalcif No cholecalci [place] immanuel immanuel ferol Communi (vitamin (vitamin (vitamin ty D3) 125 mcg D3) 125 mcg D3) 125 Hospita (5,000 (5,000 mcg (5,000 l unit) unit) unit) Clinics capsule TK capsule TK capsule TK 1 GELCAP PO 1 GELCAP PO 1 GELCAP ONCE D ONCE D PO ONCE D clonazepam clonazepam No clonazepam [place] 1 mg tablet 1 mg tablet 1 mg C ommuni TAKE 1/2 TO TAKE 1/2 TO tablet ty 1 TABLET BY 1 TABLET BY TAKE 1/2 Hospita MOUTH TWICE MOUTH TWICE TO 1 l DAILY DAILY TABLET BY Cl inics NEEDED FOR NEEDED FOR MOUTH ANXIETY ANXIETY TWICE DAILY NEEDED FOR ANXIETY Dexilant 60 Dexilant 60 No Dexilant [place] mg capsule, mg capsule, 60 mg Communi delayed delayed capsule, ty release release delayed Hospit a TAKE 1 TAKE 1 release l CAPSULE BY CAPSULE BY TAKE 1 C linics MOUTH EVERY MOUTH EVERY CAPSULE BY DAY DAY MOUTH EVERY DAY doxepin 10 doxepin 10 No doxepin 10 [place] mg capsule mg capsule mg capsule Communi TAKE 1 TO 5 TAKE 1 TO 5 TAKE 1 TO ty CAPSULES BY CAPSULES BY 5 CAPSULES Hospita MOUTH EVERY MOUTH EVERY BY MOUTH l NIGHT AT NIGHT AT EVERY Clinic s BEDTIME BEDTIME NIGHT AT BEDTIME eszopiclone eszopiclone No eszopiclon [place] 3 mg tablet 3 mg tablet e 3 mg Communi TAKE 1 TAKE 1 tablet ty TABLET BY TABLET BY TAKE 1 Hos hanna MOUTH EVERY MOUTH EVERY TABLET BY l EVENING EVENING MOUTH Clinics IMMEDIATELY IMMEDIATELY EVERY BEFORE BEFORE EVENING BEDTIME BEDTIME IMMEDIATEL Y BEFORE BEDTIME Flucelvax Flucelvax No Flucelvax [place] Quad Quad Quad Communi ty (PF) 60 mcg (PF) 60 mcg (PF) 60 Hospita (15 mcg x (15 mcg x mcg (15 l 4)/0.5 mL 4)/0.5 mL mcg x Clin ics IM syringe IM syringe 4)/0.5 mL ADM 0.5ML ADM 0.5ML IM syringe IM UTD IM UTD ADM 0.5ML IM UTD acetaminoph acetaminoph No acetaminop [place] en 300 en 300 hen 300 da mg-codeine mg-codeine mg-codeine [facility] 30 mg 30 mg 30 mg al tablet tablet tablet [facility] alprazolam alprazolam No alprazolam [place] 0.25 mg 0.25 mg 0.25 mg da tablet tablet tablet [facility] amitriptyli amitriptyli No amitriptyl [place] ne 50 mg ne 50 mg ine 50 mg da tablet tablet tablet [facility] amoxicillin amoxicillin No amoxicilli [place] [phone] n 875 da mg-potassiu mg-potassiu mg-potassi [facility] m um al clavulanate clavulanate clavulanat Health 125 mg 125 mg e 125 mg Outreac tablet tablet tablet h Program baclofen 10 baclofen 10 No baclofen [place] mg tablet mg tablet 10 mg da tablet [facility] Breo Breo No Breo [place] Ellipta 200 Ellipta 200 Ellipta da mcg-25 mcg-25 200 mcg-25 [facility] mcg/dose mcg/dose mcg/dose al powder for powder for powder for Health inhalation inhalation inhalation Outreac h Program buspirone buspirone No buspirone [place] 15 mg 15 mg 15 mg da tablet Take tablet Take tablet [facility] 1 tablet by 1 tablet by Take 1 al mouth 2 mouth 2 tablet by Heal th times daily times daily mouth 2 Outreac times h daily Program Vital Signs Vital Name Observation Time Observation Value Comments Source BP Diastolic 2023-04-29 76 mm[Hg] [place] [facility] 00:[facility] BMI (Body Mass 2023-04-29 27.2 kg/m2 [place] [facility] Index) 00:00:00 [facility] Body Weight 2023-04-29 2531.2 [oz_av] [place] [facility] 00:00:00 [facility] Height 2023-04-29 64 [in_i] [place] [facility] 00:00:00 [facility] BP Systolic 2023-04-29 129 mm[Hg] [place] [facility] 00:00:00 [facility] BP Diastolic 2023-04-02 76 mm[Hg] [place] [facility] 00:00:00 [facility] Height 2023-04-02 64 [in_i] [place] [facility] 00:00:00 [facility] BMI (Body Mass 2023-04-02 29.5 kg/m2 [place] Commun ity Index) 00:00:00 [facility] BP Systolic 2023-04-02 121 mm[Hg] [place] [facility] 00:00:00 [facility] Body Weight 2023-04-02 2752 [oz_av] [place] [facility] 00:00:00 [facility] BP Diastolic 2023-02-18 78 mm[Hg] [place] [facility] 00:00:00 [facility] Height 2023-02-18 64 [in_i] [place] [facility] 00:00:00 [facility] BMI (Body Mass 2023-02-18 29.7 kg/m2 [place] Commun ity Index) 00:00:00 Hospital Clinic s BP Systolic 2023-02-18 111 mm[Hg] [place] [facility] 00:00:00 [facility] Body Weight 2023-02-18 2768 [oz_av] [place] [facility] 00:00:00 [facility] BP Diastolic 2022-12-28 67 mm[Hg] [place] [facility] 00:00:00 [facility] Height 2022-12-28 64 [in_i] [place] [facility] 00:00:00 [facility] Clinic [facility] BMI (Body Mass 2022-12-28 31.1 kg/m2 [place] Commun ity Index) 00:00:00 [facility] Clinic s BP Systolic 2022-12-28 125 mm[Hg] [place] [facility] 00:00:00 [facility] Body Weight 2022-12-28 2896 [oz_av] [place] [facility] 00:00:00 [facility] Height 2022-07-22 64 [in_i] [place] [facility] 00:00:00 [facility] Clinic [facility] Systolic blood 2022-07-18 134 mm[Hg] [facility] 15:44:00 [facility] Diastolic blood 2022-07-18 88 mm[Hg] [facility] pressure 15:44:00 [facility] Heart rate 2022-07-18 80 /min [facility] 15:44:00 [facility] Body temperature 2022-07-18 36.61 [facility] 15:44:00 [facility] Respiratory rate 2022-07-18 18 /min [facility] 15:44:00 [facility] Body height 2022-07-18 165.1 cm [facility] 15:44:00 [facility] Body weight 2022-07-18 86.637 kg [facility] 15:44:00 [facility] BMI 2022-07-18 31.78 kg/m2 [facility] 15:44:00 [facility] Oxygen saturation 2022-07-18 97 /min [facility] Arterial blood 15:44:00 [facility] Pulse oximetry [facility] BP Diastolic 2022-04-27 81 mm[Hg] [place] [facility] 00:00:00 [facility] Clinic [facility] Height 2022-04-27 64 [in_i] [place] [facility] 00:00:00 [facility] Clinic [facility] BMI (Body Mass 2022-04-27 34.2 kg/m2 [place] Commun ity Index) 00:00:00 Hospital Clinic [facility] BP Systolic 2022-04-27 118 mm[Hg] [place] [facility] 00:00:00 [facility] Body Weight 2022-04-27 3190.4 [oz_av] [place] [facility] 00:00:00 [facility] BP Diastolic 2022-01-21 80 mm[Hg] [place] [facility] 00:00:00 [facility] Height 2022-01-21 64 [in_i] [place] [facility] 00:00:00 [facility] Clinic [facility] BMI (Body Mass 2022-01-21 35.5 kg/m2 [place] Commun ity Index) 00:00:00 Hospital Clinic s BP Systolic 2022-01-21 119 mm[Hg] [place] [facility] 00:00:00 [facility] Body Weight 2022-01-21 3308.8 [oz_av] [place] [facility] 00:00:00 [facility] BP Diastolic 2021-08-04 85 mm[Hg] [place] [facility] 00:00:00 [facility] Height 2021-08-04 64 [in_i] [place] [facility] 00:00:00 [facility] Clinic [facility] BMI (Body Mass 2021-08-04 34.8 kg/m2 [place] Commun ity Index) 00:00:00 [facility] Clinic [facility] BP Systolic 2021-08-04 114 mm[Hg] [place] [facility] 00:00:00 [facility] Body Weight 2021-08-04 3241.6 [oz_av] [place] [facility] 00:00:00 [facility] Systolic blood 2021-06-06 117 mm[Hg] [facility] pressure 18:12:00 Diastolic blood 2021-06-06 77 mm[Hg] [facility] pressure 18:12:00 Heart rate 2021-06-06 87 /min [facility] 18:12:00 Body temperature 2021-06-06 36.33 Trisha [facility] 18:12:00 Body height 2021-06-06 165.1 cm [facility] 18:12:00 Body weight 2021-06-06 90.493 kg [facility] 18:12:00 BMI 2021-06-06 33.20 kg/m2 [facility] 18:12:00 BP Diastolic 2021-05-27 76 mm[Hg] [place] [facility] 00:00:00 [facility] Height 2021-05-27 64 [in_i] [place] [facility] 00:00:00 [facility] BMI (Body Mass 2021-05-27 35.5 kg/m2 [place] Commun ity Index) 00:00:00 [facility] BP Systolic 2021-05-27 109 mm[Hg] [place] [facility] 00:00:00 [facility] Body Weight 2021-05-27 3310.4 [oz_av] [place] [facility] 00:00:00 [facility] BP Diastolic 2021-02-17 81 mm[Hg] [place] [facility] 00:00:00 [facility] Height 2021-02-17 64 [in_i] [place] [facility] 00:00:00 [facility] BMI (Body Mass 2021-02-17 35.1 kg/m2 [place] Commun ity Index) 00:00:00 [facility] Clinic [facility] BP Systolic 2021-02-17 108 mm[Hg] [place] [facility] 00:00:00 [facility] Body Weight 2021-02-17 3270.4 [oz_av] [place] [facility] 00:00:00 [facility] BP Diastolic 2021-01-02 90 mm[Hg] [place] [facility] 00:00:00 [facility] Height 2021-01-02 64 [in_i] [place] [facility] 00:00:00 [facility] BMI (Body Mass 2021-01-02 35 kg/m2 [place] Commun ity Index) 00:00:00 [facility] BP Systolic 2021-01-02 151 mm[Hg] [place] [facility] 00:00:00 [facility] Body Weight 2021-01-02 3260.8 [oz_av] [place] [facility] 00:00:00 [facility] BP Diastolic 2020-12-12 82 mm[Hg] [place] [facility] 00:00:00 [facility] Height 2020-12-12 64 [in_i] [place] [facility] 00:00:00 [facility] Clinic [facility] BMI (Body Mass 2020-12-12 36.2 kg/m2 [place] Commun ity Index) 00:00:00 Hospital Clinic s BP Systolic 2020-12-12 131 mm[Hg] [place] [facility] 00:00:00 [facility] Body Weight 2020-12-12 3372.8 [oz_av] [place] [facility] 00:00:00 [facility] BP Diastolic 2020-11-21 84 mm[Hg] [place] [facility] 00:00:00 [facility] Height 2020-11-21 64 [in_i] [place] [facility] 00:00:00 Hospital Clinic s BMI (Body Mass 2020-11-21 35.1 kg/m2 [facility] ity Index) 00:00:00 Hospital Clinic s BP Systolic 2020-11-21 134 mm[Hg] [place] [facility] 00:00:00 [facility] Body Weight 2020-11-21 3270.4 [oz_av] [place] [facility] 00:00:00 Hospital Clinic s Systolic blood 2023-01-06 112 mm[Hg] [facility] pressure 16:05:00 Hospital Diastolic blood 2023-01-06 79 mm[Hg] [facility] pressure 16:05:00 Hospital Body height 2023-01-06 165.1 cm [facility] 16:05:00 Hospital Body weight 2023-01-06 80.831 kg [facility] 16:05:00 Hospital BMI 2023-01-06 29.65 kg/m2 [facility] 16:05:00 Hospital BP Systolic 2018-04-01 123 mm[Hg] [facility] 14:50:00 BP Diastolic 2018-04-01 84 mm[Hg] [facility] 14:50:00 Height 2018-04-01 64 [in_us] [facility] 14:50:00 Weight 2018-04-01 226 [lb_av] [facility] 14:50:00 Body Mass Index 2018-04-01 38.79 kg/m2 [facility] Calculated 14:50:00 Temperature 2018-04-01 98.1 [degF] Method: Oral [facility] 14:50:00 Heart Rate 2018-04-01 90 /min [facility] 14:50:00 Procedures Procedure Date / Time Performing Clinician Source Performed MAMMO, screening, digital, 2022-12-28 00:00:00 [facility] ASSIGNMENT OF BENEFITS 2022-07-18 15:36:06 [facility] 4 OR MORE 2022-06-12 21:52:35 Miguel Angel Ackerman [facility] PARAMETERS WITH CPAP FL UPPER GI SERIES 2021-06-13 15:12:39 [facility]leg[facility] 2021-06-13 15:12:39 [facility]akelin [facility], foot, 3 or more view 2021-01-02 00:00:00 [facility] Clinics MAMMO, diagnostic, 2020-12-12 00:00:00 [facility] mmunity digital, unilateral Hospital Cli nics US, breast, unilateral 2020-12-12 00:00:00 [facility] Clinics MAMMO, screening, digital, 2020-11-21 00:00:00 [facility] Clinics bone density 2020-11-21 00:00:00 [facility] Clinics Hemorrhoidectomy [facility] Hernia Repair [facility] Appendectomy [facility] Partial Hysterectomy [facility] Delivery [facility] Plan of Care Planned Activity Planned Date Details Comments Source Future Scheduled Test 2023-05-27 BREAST CANCER [facility] 16:44:35 SCREENING [code = BREAST CANCER SCREENING] Future Scheduled Test 2023-05-27 SHINGLES VACCINES (1 [facility] 16:44:35 of 2) [code = SHINGLES VACCINES (1 of 2)] Future Scheduled Test 2023-05-27 COVID-19 VACCINE (5 - [facility] 16:44:35 Mixed Product series) [code = COVID-19 VACCINE (5 - Mixed Product series)] Future Scheduled Test 2023-05-27 INFLUENZA VACCINE [facility] 16:44:35 (#1) [code = INFLUENZA VACCINE (#1)] Future Scheduled Test 2023-05-27 Screening for [facility] 16:44:35 malignant neoplasm of colon (procedure) [code = 540814179] Future Scheduled Test 2023-05-27 Screening for [facility] 16:44:35 malignant neoplasm of colon (procedure) [code = [id number]] Future Scheduled Test 2023-05-27 Screening for [facility] 16:44:35 malignant neoplasm of colon (procedure) [code = [id number]] Future Scheduled Test 2023-05-27 Hepatitis C screening [facility] 16:44:35 (procedure) [code = [id number]] Future Scheduled Test 2023-05-27 [facility] 16:44:35 malignant neoplasm of cervix (procedure) [code = 001003945] Future Scheduled Test 2023-05-27 Screening for [facility] 16:44:35 malignant neoplasm of colon (procedure) [code = [id number]] Future Scheduled Test 2023-05-27 Screening for [facility] 16:44:35 malignant neoplasm of colon (procedure) [code = [id number]] Diagnostic Test 2023-04-29 urinalysis, dipstick [facility] Pending 00:00:00 [code = urinalysis, Hospital Clinics dipstick] Diagnostic Test 2023-04-29 rapid SARS CoV 2 Ag, [facility] Pending 00:00:00 QL IA, respiratory Hospital Clinics specimen [code = rapid SARS CoV 2 Ag, QL IA, respiratory specimen] Diagnostic Test 2023-04-29 rapid flu (A+B) [code [facility] Pending 00:00:00 = rapid flu (A+B)] Hospital Clinics Diagnostic Test 2023-04-29 rapid strep group A, [facility] Pending 00:00:00 throat [facility], throat] Future Scheduled Test 2021-12-[address] [facility] 00:00:00 (procedure) [code = [facility] 16921454] Future Scheduled Test 2021-05-07 INFLUENZA VACCINE [facility]00 (#1) [code = [facility] INFLUENZA VACCINE (#1)] Future Scheduled Test 2020 SHINGLES VACCINES ([address] [facility] 00:00:00 of 2) [code = [facility] SHINGLES VACCINES (1 of 2)] Future Scheduled Test 2020-09-[address] [facility] 00:00:00 (12+) [code = [facility] DEPRESSION SCREENING (12+)] Future Scheduled Test 2012-04-[address] [facility] 00:00:00 WELLNESS (YEAR 2 or Medical Center FIRST YEAR if no IPPE) [code = MEDICARE ANNUAL WELLNESS (YEAR 2 or FIRST YEAR if no IPPE)] Future Scheduled Test 1991 [facility] cerv[facility]procedure) [code = 923123886] Future Scheduled Test 1989 DTAP/TDAP/TD VACCINES [facility] 00:00:00 (1 - Tdap) [code = Medical C enter DTAP/TDAP/TD VACCINES (1 - Tdap)] Future Scheduled Test 1988 HEPATITIS C SCREENING [facility] 00:00:00 [code = HEPATITIS C Medical Center SCREENING] Future Scheduled Test 1982 COVID-19 VACCINE (1) [facility] 00:00:00 [code = COVID-[address] VACCINE (1)] Future Scheduled Test [address] [facility] 00:00:00 0-64 YRS (1 of 2 - Medical C enter PPSV23) [code = PNEUMOCOCCAL VACCINE 0-64 YRS (1 of 2 - PPSV23)] Future Scheduled Test 1970 [facility]00 malignant neoplasm of [facility] breast (procedure) [code = 609272173] Future Scheduled Test 1970 [facility]00 malignant ne[facility] of [facility] colon (procedure) [code = 343759709] Instructions [facility] s Instructions [facility] Pro[facility] m Encounters Start End Encounter Admission Attending Care Care Encounter Source Date/Time Date/Time Type Type Clinicians Facility Department ID 2021-07-04 Outpatient [facility] [id number] [place] 11:29:23 [facility] 2021-07-04 Outpatient [facility] [id number] [place] 10:19:23 [facility] 2021-06-23 Outpatient [facility] [id number] [place] 13:07:29 [facility] 2021-05-01 Outpatient [facility] [id number] [place] 14:44:19 [facility] 2020-02-23 Outpatient PANCHO KEYON LONG [id number] [facility] 06:33:28 [facility] 2023-05-21 2023-05-21 Outpatient CHRETIEN_F [facility] 1011 [place] 00:00:00 00:00:00 0915 [facility] 2023-05-17 2023-05-17 Telephone [place], 1.2.840.1 [id number] Methodi 00:00:00 00:00:00 Miguel Angel Cervantes 11248.1.[address] 3.430.2.7 Hospit a .3.794823 l .8 2023-05-14 2023-05-14 Refill Ackerman, 1.2.840.1 [id number] Methodi 00:00:00 00:00:00 Miguel Angel Cervantes 60568.1.[address] 3.430.2.7 Hospit a .3.876297 l .8 2023-04-29 2023-04-29 Outpatient CHRETIEN_F [facility] 101 [place] 00:00:00 00:00:00 0824 [facility] i [facility] 2023-04-29 2023-04-29 Holly [facility] [place] 24 [place] 00:00:00 00:00:00 Eladio Thurman 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 2023-04-16 2023-04-16 Outpatient CHRETIEN_F [facility] 101 [place] 00:00:00 00:00:00 0811 [facility] 2023-04-16 2023-04-16 Outpatient [facility]RETIEN_F [facility] 101 [place] 00:00:00 00:00:00 0823 [facility] 2023-04-16 2023-04-16 Refill Ackerman, 1.2.840.1 [id number] Methodi 00:00:00 00:00:00 Miguel Angel Cervantes 58093.1.[address] 3.430.2.7 Hospit a .3.945690 l .8 2023-04-02 2023-04-02 Outpatient CHRETIEN_F [facility] 1011 [place] 00:00:00 00:00:00 0728 [facility] 2023-04-02 2023-04-02 Outpatient [facility]RETIEN_F [facility] 1011 [place] 00:00:00 00:00:00 0804 [facility] 2023-04-02 2023-04-02 Outpatient [facility]RETIEN_F [facility] 101 [place] 00:00:00 00:00:00 0809 [facility] i [facility] 2023-04-02 2023-04-02 Outpatient CHRETIEN_F [facility] 101 [place] 00:00:00 00:00:00 0810 Commun i ty H[facility] Clinics 2023-04-02 2023-04-02 Heike [facility] [place] 28 [place] 00:00:00 00:00:00 Eladio Perez APRN, MSN, Hospital - ty [facility] [place] [address] [place] [address], CLINIC [address] [place] [address] , Ph. 2023-02-18 2023-02-18 Holly [facility] [place] 15 [place] 00:00:00 00:00:00 Eladio Thurman Co mmuni TUB OPERATOR-FOOT DOCTOR-B Hospital - ty C: 668 [facility], CLINIC [address] [place] [address] , Ph. 2023-02-12 2023-02-12 Outpatient CHRETIEN_F [facility] 1011 [place] 00:00:00 00:00:00 0609 Commun i ty [facility]ics 2023-02-12 2023-02-12 Outpatient [facility]RE[facility]EN_F [facility] 1011 [place] 00:00:00 00:00:00 0615 [facility] i ty [facility] 2023-01-06 2023-01-21 Telemedici [place], 1.2.840.1 [id number] Methodi 10:45:00 00:21:46 ne Miguel Angel Cervantes 14458.1.[address] 3.430.2.7 Hospit a .3.142824 l .8 2023-01-06 2023-01-06 Outpatient [place], [facility] [id number] [address] [place] 00:00:00 00:00:00 MIGUEL ANGEL [address] 2022-12-28 2022-12-28 [facility] [place] 24 [place] 00:00:00 00:00:00 Olman [facility] mmuni TUB OPERATOR-FOOT DOCTOR-B [facility] C: [address] [facility], CLINIC [address], [place] [address] , Ph. 2022-12-24 2022-12-24 Telephone [place], 1.2.840.1 [id number] [id number] Methodi 00:00:00 00:00:00 Miguel Angel Hughes. 35097.1.[address] 3.430.2.7 Hospit a .3.551013 l .8 2022-12-24 2022-12-24 Refill [place], 1.2.840.1 [id number] Methodi 00:00:00 00:00:00 Miguel Angel B. 71173.1.[address] 3.430.2.7 Hospit a .3.260940 l .8 2022-12-03 2022-12-03 Refill [place], 1.2.840.1 [id number] 6850 Methodi 00:00:00 00:00:00 Miguel Angel B. 48530.1.[address] 3.430.2.7 Hospit a .3.323907 l .8 2022-11-04 2022-11-04 Refill [place], 1.2.840.1 [id number] 8987 Methodi 00:00:00 00:00:00 Miguel Angel B. 08889.1.[address] 3.430.2.7 Hospit a .3.158874 l .8 2022-10-07 2022-10-07 Zara Ackerman, 1.2.840.1 [id number] 6619 Methodi 00:00:00 00:00:00 Miguel Angel Cervantes 13939.1.[address] 3.430.2.7 Hospit a .3.293143 l .8 2022-09-27 2022-09-27 Zara Ackerman, 1.2.840.1 [id number] 4454 Methodi 00:00:00 00:00:00 Miguel Angel Hughes. 97011.1.[address] 3.430.2.7 Hospit a .3.491511 l .8 2022-09-15 2022-09-15 Outpatient [facility]RETIEN_F [facility] 1011 [place] 00:00:00 00:00:00 0203 Commun i ty [facility]osp[facility] Clinics 2022-09-15 2022-09-15 Outpatient [facility]RETIEN_F [facility] 1011 [place] 00:00:00 00:00:00 0424 Commun i ty Hosp[facility] Clinics 2022-09-15 2022-09-15 Zara Ackerman, 1.2.840.1 [id number] 6286 Methodi 00:00:00 00:00:00 Miguel Angel Cervantes 34934.1.[address] 3.430.2.7 Hospit a .3.357315 l .8 2022-08-26 2022-08-26 Outpatient [facility]RETIEN_F [facility] 1011 [place] 00:00:00 00:00:00 1221 Commun i ty Hosp[facility] Clinics 2022-08-26 2022-08-26 Outpatient HOP_SANKET ODELL 104 [id number] [place] 00:00:00 00:00:00 [facility] [address] [facility] 2022-08-11 2022-08-11 Telemedici [place], 1.2.840.1 [id number] Methodi 10:00:00 10:16:37 ne Miguel Angel B. 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 2022-07-18 2022-07-18 Urgent Radha Louis [facility] 1.2.840.11 4 [id number] Univers 09:40:00 10:00:00 Care Unknown, Attending [facility] 350.1.13.10 ity [facility] 4.2.7.2.686 Dirk as TOBY?BLEA [phone] [address] MEDICAL OFFICE [facility] 2022-07-18 2022-07-18 Outpatient Alvaro [facility] [id number] Univers 09:40:00 09:40:00 RADHA ity of [facility] 2022-07-18 2022-07-18 Orders Doctor GONGORA 1.2.840.114 [id number] Univers 00:00:00 00:00:00 Only Unassigned, ТАТЬЯНА 350.1.13.10 ity of [facility] 4.2.7.2.686 Dirk as [phone] [address] 2022-06-26 2022-06-26 Orders Roz 1.2.840.1 [id number] [id number] Methodi 00:00:00 00:00:00 Only Mela 48354.1.[address] 3.430.2.7 Hospit a .3.277060 l .8 2022-06-25 2022-06-25 Telephone Taco, 1.2.840.1 [id number] Methodi 00:00:00 00:00:[address] 3.430.2.7 Hospit a .3.457169 l .8 2022-06-23 2022-06-23 Refill [place] 1.2.840.1 [id number] 8821 Methodi 00:00:00 00:00:00 Miguel Angel Cervantes 23207.1.[address] 3.430.2.7 Hospit a .3.577783 l .8 2022-06-09 2022-06-09 Yanique Ackerman 1.2.840.1 [id number] 85965 Methodi 20:30:00 20:30:00 Support Miguel Angel Cervantes 59522.1.[address] 3.430.2.7 Hospit a .3.315818 l .8 2022-06-09 2022-06-09 Outpatient [facility] [id number] [address] [place] 00:00:00 00:00:[address] 2022-06-09 2022-06-09 Travel 1.2.840.1 1.2.846.514 5152 [id number] Methodi 00:00:00 00:00:[address] 3.430.2.7 0.2.7.3.698 spita .3.116870 084.8 l .8 2022-06-09 2022-06-09 Orders Wild, 1.2.840.1 [id number] 8338 Methodi 00:00:00 00:00:00 Only [place]a 89148.1.[address] 3.430.2.7 Hospit a .3.314785 l .8 2022-05-25 2022-05-25 Outpatient CHRETIEN_F [facility] 101 [place] 00:00:00 00:00:00 0919 [facility] 2022-05-12 2022-05-12 Outpatient [facility] [id number] [place] 14:15:00 14:15:00 CHARITO Vazquez 2022-04-27 2022-04-27 Outpatient [facility]RETIEN_F [facility] 1011 [place] 00:00:00 00:00:00 0822 Commun i ty [facility] Clinics 2022-04-27 2022-04-27 Holly [facility] [place] 00:00:00 00:00:00 [facility] TUB OPERATOR-FOOT DOCTOR-B Hospital - ty C: [address] [facility], CLINIC [address], [place] [address] , Ph. 2022-04-27 2022-04-27 Outpatient Olman [facility] [id number] 00:00:00 00:00:00 Holly [id number] 2022-04-07 2022-04-07 Outpatient [facility] [id number] [address] [place] [address] 00:00:00 00:00:00 MIGUEL ANGEL diggs 2022-01-26 2022-01-26 Outpatient [facility]RETIEN_F [facility] 1011 [place] 10:00:00 10:00:00 0523 Commun i ty Hospita [facility] Clinics 2022-01-22 2022-01-22 Outpatient CHRETIEN_F [facility] 1011 [place] 09:58:00 09:58:00 0519 Commun i ty Hospita l Clinics 2022-01-21 2022-01-21 Outpatient CHRETIEN_F [facility] 1011 [place] 03:53:00 03:53:00 0518 Commun i ty Hospita l Clinics 2022-01-21 2022-01-21 eRmy [facility] [place] 00:00:00 00:00:00 [facility] - ty DO: [address] [facility], [facility] [address], [place] [address] , Ph. 2022-01-21 2022-01-21 Outpatient Enrique [facility] [id number] 00:00:00 00:00:00 Remy [id number] Vick [id number] 2022-01-20 2022-01-20 Outpatient CHRETIEN_F [facility] 1011 [place] 05:54:00 05:54:00 0517 Commun i ty Hospita [facility] 2021-10-21 2021-10-21 Outpatient ACKERMAN [facility] [id number] [address] [place] 00:00:00 00:00:00 MIGUEL ANGEL [address] 2021-08-04 2021-08-04 [facility] 101 [place] 03:53:00 03:53:00 _L 1129 Commun i ty Hospita [facility] 2021-08-04 2021-08-04 Anya Ferreira [facility] [place] 202 [address] [place] 00:00:00 00:00:00 [facility] C tarsha krause, ZACKARYP-C: [facility] - [address], [place] [address] , Ph. 2021-08-04 2021-08-04 [facility] 90d [id number] 00:00:00 00:00:00 , Anya [id number] Hanna [id number] 2021-06-13 2021-06-[address] [facility] OP Ernestine, EXT MSRDP 1.2.840.114 1 [id number] [place] 00:00:00 00:00:00 [facility] 350.1.13.58 [facility] 9.2.7.2.686 [id number] 0 2021-06-13 2021-06-[address] [facility] OP Ernestine, EXT MSRDP 1.2.840.114 1 [id number] [place] 00:00:00 00:00:00 Charito LOCATION 350.1.13.58 [facility] 9.2.7.2.686 [id number] 0 2021-06-06 2021-06-[address] [facility] 1.2.840.114 [id number] [place] 11:20:49 14:00:20 Visit Charito SUGAR 350.1.13.58 [facility] 9.2.7.2.686 [address] 9 [id number] AND 4 WOMENS 2021-05-27 2021-05-27 Outpatient [facility] [place] 12:48:00 12:48:00 _L 0921 Commun i ty [facility]osp[facility] Clinics 2021-05-27 2021-05-27 Anya Ferreira [facility] [place] [address] [place] 00:00:00 00:00:00 [facility] tarsha krause, [facility]: Hospital - ty [address] [place] [address] [address], [place] [address] , Ph. 2021-05-27 2021-05-27 Outpatient [facility] 117 [id number] 00:00:00 00:00:00 , Anya [id number] Hanna [id number] 2021-04-07 2021-04-07 Outpatient [facility] [place] 09:22:00 09:22:00 _L 0802 [facility] i [facility] 2021-03-29 2021-03-29 Outpatient [facility] [place] 02:31:00 02:31:00 _L 0724 Commun i ty [facility]osp[facility] Clinics 2021-02-22 2021-02-22 Outpatient [facility] 101 [place] 03:20:00 03:20:00 _L 0619 Commun i ty Hospita [facility] Clinics 2021-02-21 2021-02-21 Outpatient [facility] 101 [place] 08:30:00 08:30:00 _L 0618 Commun i ty Hospita [facility] Clinics 2021-02-17 2021-02-17 Outpatient [facility] 101 [place] 05:09:00 05:09:00 _L 0614 Commun i ty Hospita [facility] Clinics 2021-02-17 2021-02-17 Anya Ferreira [facility] [place] 202 [id number] [place] 00:00:00 00:00:00 [facility] Amari krause AGNP-C: Hospital - ty [address] [facility] [address], [place] [address] , Ph. 2021-02-17 2021-02-17 Outpatient [facility] 249 [id number] 00:00:00 00:00:00 , Anya [id number] Hanna [id number] 2021-01-08 2021-01-08 Outpatient [facility] [place] 02:33:00 02:33:00 _L 0507 Commun i ty Hospita l Clinics 2021-01-02 2021-01-02 Outpatient R [facility] [id number] Univers 16:40:00 16:40:00 [id number] [facility] 2021-01-02 2021-01-02 Outpatient [facility] [id number] Univers 16:40:00 16:40:00 KAROLINE [facility] 2021-01-02 2021-01-02 Outpatient [facility] 101 [place] 04:30:00 04:30:00 _L 0429 Commun i ty Hospita l Clinics 2021-01-02 2021-01-02 Gabriela [facility] [place] 29 [place] 00:00:00 00:00:00 Eladio Mosher 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 2021-01-02 2021-01-02 Outpatient Nomi [facility] [id number] 00:00:00 00:00:00 Gabriela [id number] 2020-12-23 2020-12-23 Outpatient THERON Silveira [id number] [facility] 09:41:00 09:41:[address] ARMAS 2020-12-12 2020-12-12 Outpatient [facility] [place] 11:04:00 11:04:00 _L 0408 Commun i ty [facility]ospita [facility] Clinics 2020-12-12 2020-12-12 Outpatient [facility] 18f [id number] 00:00:00 00:00:00 , Anya [id number] Hanna [id number] 2020-12-12 2020-12-12 Anya Ferreira [facility] [place] 202 [id number] [place] 00:00:00 00:00:00 [facility] tarsha krause, ZACKARYP-C: [facility] [address] [place] [address] [address], [place] [address] , Ph. 2020-11-22 2020-11-22 Outpatient [facility] [place] 11:31:00 11:31:00 _L 0319 Commun i ty Hospita l Clinics 2020-11-21 2020-11-21 Outpatient [facility] [place] 04:11:00 04:11:00 _L 0318 Commun i ty Hospita l Clinics 2020-11-21 2020-11-21 Outpatient [facility] [id number] [id number] 00:00:00 00:00:00 , Anya [id number] Hanna [id number] 2020-11-21 2020-11-21 Anya Ferreira [facility] [place] 202 [id number] [place] 00:00:00 00:00:00 [facility] SNAGEETA ahuja-C: Hospital - ty [address] [facility] [address], [place] [address] , Ph. 2020-11-11 2020-11-11 Outpatient [place] [address] [place] 04:38:00 04:38:00 _L 0308 Commun i ty Hospita l Clinics 2020-11-05 2020-11-05 Outpatient [facility] 101 [place] 12:53:00 12:53:00 _L 0302 Commun i ty Hospita l [facility] 2020-10-10 2020-10-10 Outpatient [facility] 101 [place] 05:22:00 05:22:00 _L 0204 Commun i ty Hospita l [facility] 2020-02-26 2020-02-26 Outpatient [facility] [id number] [address] [place] [address] 00:00:00 00:00:00 MIGUEL ANGEL [address] 2020-02-06 2020-02-06 Outpatient SAGE, [facility]FB [facility] [id number] [facility] 08:25:00 10:41:00 KARIS 2019-07-03 2019-07-03 Seb ODELL [place] - [id number] genia 00:00:00 00:00:00 Jayde [place] MD: [facility] [address] [facility] [place], [address], [facility] [address] , Ph. (269) --20072019-03-24 2019-03-21 Inpatient E [facility] LONG 7503 [facility]FB 08:58:00 06:45:00 2019-02-27 2019-03-13 Inpatient 3 [facility] ENCPL ROSAMARIA 5222 [place] 20:33:00 16:00:00 chas, 0624 [facility] Rehabil itation Marcy killian 2019-02-15 2019-02-15 Emergency E [facility]FB MHFB 7502 [facility]FB 18:25:00 18:25:00 2018-07-26 2018-07-26 [facility] [id number] [place] 11:00:00 11:00:00 t; [place] Phys ici NILESH, M.D. ans M.D. 2018-06-06 2018-06-06 [facility] [id number] [place] 14:00:00 14:00:00 t; INDRA EMANUEL, PHD Physici gunjan BURRELL PHD 2018-04-01 2018-04-01 [facility] Steffi [id number] [place] 14:20:00 14:20:00 t; LULÚ BURRELL [facility] gunjan ELLIOTT NP 2017-08-02 2017-08-02 [facility] [id number] [place] 11:30:00 11:30:00 t; Quentin TORREZ M.D. ans CHRISTI, M.D. Results Test Description Test Time Test Comments Results Result Comments Source BLOOD CULTURE 2018-12-13 10:01:00 Test Item Value Reference Range Interpretation Comme nts CULTURE (BEAKER) (test code = 1095) No growth in 5 days BLOOD [id number] 10:01:00 Test Item Value Reference Range Interpretation Comments CULTURE (BEAKER) (test No growth in 5 days code = 1095) URINE [id number] 09:34:00 Test Item Value Reference Range Interpretation Comments CULTURE (BEAKER) (test code = 1095) No growth LACTIC ACID, [id number] 06:21:00 Test Item Value Reference Range Interpretation Comments LACTATE BLOOD VENOUS (2) (BEAKER) 1.8 mmol/L 0.5-2.0 (test code = 2872) CT, [id number] 05:21:00Reason for exam:->ABDOMINAL PAINReason for exam:->SHORTNESS OF BREATHIs the patient ?->UnknownWhat is the patient's sedation requirement?->No SedationFINAL REPORT EXAM: CT of the chest, with contrast. CT of the abdomen and pelvis, with contrast CLINICAL HISTORY: Shortness of breath, right chest pain and abdominal pain. TECHNIQUE: CT of the chest, abdomen and pelvis was performed with intravenous contrast. Oral contrast was not administered. This exam was performed according to our departmental dose optimization program which includes automated exposure control, adjustment of the mA and/or kV according to patient's size and/oruse of iterative reconstructive technique. COMPARISON: Chest CT 12/03/2018 FINDINGS: CHEST: LOWER NECK: Within normal limits.AIRWAYS AND LUNGS: Patent central tracheobronchial tree. Diffuse ground glassopacities in the right upper, right middle and right lower lobes, decreased in the interval. Calcified left upper lobe granuloma. 5 mm subpleural nodule abutting the left major fissure which may represent a lymph node, likely benign and requires no additional imaging follow-up. PLEURA: No pleural effusion or pneumothorax.VESSELS: Within normal limits. HEART: Normal heart size. No pericardial effusion.CONNIE AND MEDIASTINUM: Within normal limits.SOFT TISSUES: Within normal limits.BONES: Within normal limits. ABDOMEN AND PELVIS: LIVER: Within normal limits.BILE DUCTS: Within normal limits.GALL BLADDER:Within normal limits.PANCREAS: Within normal limits.SPLEEN: Within normal limits.ADRENALS: Within normal limits.KIDNEYS/URETERS: Within normal limits. URINARY BLADDER: Within normal limits.REPRODUCTIVEORGANS: Within normal limits. BOWEL/MESENTERY: Small to moderate hiatal hernia. No bowel obstructionor abnormal wall thickening. Nonvisualization of the appendix.PERITONEUM/RETROPERITONEUM: No free air, free fluid or fluid collection. VESSELS: Within normal limits. LYMPH NODES: No abdominal or pelviclymphadenopathy.SOFT TISSUES: Within normal limits.BONES: Within normal limits. IMPRESSION:Chest CT:Diffuse airspace opacities in the right hemithorax which may be infectious or inflammatory in etiology, decreased in the interval. CT abdomen and pelvis: Small to moderate hiatal hernia. No bowel obstruction, free air or fluid collection. Signed: Evelyn Espinosa MDReport Verified Date/Time: 12/08/2018 05:21:26 Reading Location: [facility] B1 C013Y CT Body Reading Room CT, CHEST, WITH [id number] 05:21:00Reason for exam:- >ABDOMINAL PAINReason for exam:->SHORTNESS OF BREATHIs the patient ?->UnknownWhat is the patient's sedation requirement?->No Sedation FINAL REPORT EXAM: CT of the chest, with contrast. CT of the abdomen and pelvis, with contrast CLINICAL HISTORY: Shortness of breath, right chest pain and abdominal pain. TECHNIQUE: CT of the chest, abdomen and pelvis was performed with intravenous contrast. Oral contrast was not a dministered. This exam was performed according to our departmental dose optimization program which includes automated exposure control, adjustment of the mA and/or kV according to patient's size and/oruse of iterative reconstructive technique. COMPARISON: Chest CT 12/03/2018 FINDINGS: CHEST: LOWER NECK: Within normal limits.AIRWAYS AND LUNGS: Patent central tracheobronchial tree. Diffuse ground glassopacities in the right upper, right middle and right lower lobes, decreased in the interval. Calcified left upper lobe granuloma. 5 mm subpleural nodule abutting the left major fissure which may represent a lymph node, likely benign and requires no additional imaging follow-up. PLEURA: No pleural effusion or pneumothorax.VESSELS: Within normal limits. HEART: Normal heart size. No pericardial effusion.CONNIE AND MEDIASTINUM: Within normal limits.SOFT TISSUES: Within normal limits.BONES: Within normal limits. ABDOMEN AND PELVIS: LIVER: Within normal limits.BILE DUCTS: Within normal limits.GALL BLADDER:Within normal limits.PANCREAS: Within normal limits.SPLEEN: Within normal limits.ADRENALS: Within normal limits.KIDNEYS/URETERS: Within normal limits. URINARY BLADDER: Within normal limits.REPRODUCTIVEORGANS: Within normal limits. BOWEL/MESENTERY: Small to moderate hiatal hernia. No bowel obstructionor abnormal wall thickening. Nonvisualization of the appendix.PERITONEUM/RETROPERITONEUM: No free air, free fluid or fluid collection. VESSELS: Within normal limits. LYMPH NODES: No abdominal or pelvic lymphadenopathy.SOFT TISSUES: Within normal limits.BONES: Within normal limits. IMPRESSION:Chest CT:Diffuse airspace opacities in the right hemithorax which may be infectious or inflammatory in etiology, decreased in the interval. CT abdomen and pelvis: Small to moderate hiatal hernia. No bowel obstruction, free air or fluid collection. Signed: Evelyn Espinosa MDReport Verified Date/Time: 12/08/2018 05:21:26 Reading Location: [facility] B1 C013Y CT Body Reading Room URINALYSIS W/ [id number] 04:56:00 Test Item Value Reference Range Interpretation Comments COLOR (BEAKER) (test code = 470) Yellow CLARITY (BEAKER) (test code = 469) Clear SPECIFIC GRAVITY UA (BEAKER) (test 1.015 1.001-1.035 code = 468) PH UA (BEAKER) (test code = 467) 6.0 5.0-8.0 PROTEIN UA (BEAKER) (test code = Negative Negative 464) GLUCOSE UA (BEAKER) (test code = Negative Negative 365) KETONES UA (BEAKER) (test code = 15 mg/dL Negative A 371) BILIRUBIN UA (BEAKER) (test code = Negative Negative 462) BLOOD UA (BEAKER) (test code = 461) Negative Negative NITRITE UA (BEAKER) (test code = Negative Negative 465) LEUKOCYTE ESTERASE UA (BEAKER) Negative Negative (test code = 466) UROBILINOGEN UA (BEAKER) (test code 0.2 mg/dL 0.2-1.0 = 463) BACTERIA (BEAKER) (test code = 517) Few MUCUS (BEAKER) (test code = 1574) Few RBC UA-MANUAL (BEAKER) (test code = <5 /HPF 1659) WBC UA-MANUAL (BEAKER) (test code = <5 /HPF 1661) SQUAMOUS EPITHELIAL MANUAL (BEAKER) <5 /HPF (test code = 1663) SOURCE(BEAKER) (test code = 2795) PROTHROMBIN [id number] 04:28:00 Test Item Value Reference Range Interpretation Comments PROTIME (BEAKER) (test code = 759) 10.1 sec 9.3-12.0 INR (BEAKER) (test code = 370) 0.9 <=5.9 RECOMMENDED COUMADIN/WARFARIN INR THERAPY RANGESSTANDARD DOSE: 2.0 - 3.0 Includes: PROPHYLAXIS for venous thrombosis, systemic embolization; TREATMENT for venous thrombosis and/or pulmonary embolus.HIGH RISK: Target INR is 2.5-3.5 for patients with mechanical heart valves.Final Information (Auto Output)Final Information (Auto Output)TROPONIN [id number] 04:27:00 Test Item Value Reference Range Interpretation Comments TROPONIN I (BEAKER) (test code = 397) < ng/mL 0.00-0.15 Troponin I (TnI) levels must be interpreted in the context of the presenting symptoms and the clinical findings. Elevated TnI levels indicate myocardial damage, but are not specific for ischemic heart disease. Elevated TnI levels are seen in patients with other cardiac conditions (including myocarditis and congestive heart failure), and slight TnI elevations occur in patients with other conditions, including sepsis, renal failure, acidosis, acute neurological disease, and persistent tachyarrhythmia.CBC W/PLT COUNT & AUTO DIFFERENTIAL 2018-12-08 04:22:00 Test Item Value Reference Range Interpretation Comments WHITE BLOOD CELL COUNT (BEAKER) 10.5 K/ L 4.0-10.0 H (test code = 775) RED BLOOD CELL COUNT (BEAKER) 4.40 M/ L 4.00-5.00 (test code = 761) HEMOGLOBIN (BEAKER) (test code = 10.7 GM/DL 12.0-15.5 L 410) HEMATOCRIT (BEAKER) (test code = 35.2 % 36.0-46.0 L 411) MEAN CORPUSCULAR VOLUME (BEAKER) 80.0 fL 82.0-99.0 L (test code = 753) MEAN CORPUSCULAR HEMOGLOBIN 24.3 pg 27.0-33.0 L (BEAKER) (test code = 751) MEAN CORPUSCULAR HEMOGLOBIN CONC 30.4 GM/DL 32.0-36.0 L (BEAKER) (test code = 752) RED CELL DISTRIBUTION WIDTH 17.5 % 12.0-15.0 H (BEAKER) (test code = 412) PLATELET COUNT (BEAKER) (test 528 K/CU MM 150-430 H code = 756) MEAN PLATELET VOLUME (BEAKER) 9.6 fL 6.0-11.5 (test code = 754) NUCLEATED RED BLOOD CELLS 0 /100 WBC 0-0 (BEAKER) (test code = 413) NEUTROPHILS RELATIVE PERCENT 62 % (BEAKER) (test code = 429) LYMPHOCYTES RELATIVE PERCENT 24 % (BEAKER) (test code = 430) MONOCYTES RELATIVE PERCENT 8 % (BEAKER) (test code = 431) EOSINOPHILS RELATIVE PERCENT 2 % (BEAKER) (test code = 432) BASOPHILS RELATIVE PERCENT 1 % (BEAKER) (test code = 437) NEUTROPHILS ABSOLUTE COUNT 6.52 K/ L 1.80-8.00 (BEAKER) (test code = 670) LYMPHOCYTES ABSOLUTE COUNT 2.52 K/ L 1.48-4.50 (BEAKER) (test code = 414) MONOCYTES ABSOLUTE COUNT (BEAKER) 0.85 K/ L 0.00-1.30 (test code = 415) EOSINOPHILS ABSOLUTE COUNT 0.20 K/ L 0.00-0.50 (BEAKER) (test code = 416) BASOPHILS ABSOLUTE COUNT (BEAKER) 0.07 K/ L 0.00-0.20 (test code = 417) IMMATURE GRANULOCYTES-RELATIVE 3 % 0-0 H PERCENT (BEAKER) (test code = 2801) [id number] 04:21:00 Test Item Value Reference Range Interpretation Comments LIPASE (BEAKER) (test code = 749) 11 U/L 6-51 COMPREHENSIVE METABOLIC [id number] 04:20:00 Test Item Value Reference Range Interpretation Comments TOTAL PROTEIN 7.7 gm/dL 6.0-8.5 (BEAKER) (test code = 770) ALBUMIN (BEAKER) 3.8 g/dL 3.5-5.0 (test code = 1145) ALKALINE PHOSPHATASE 223 U/L 30-115 H (BEAKER) (test code = 346) BILIRUBIN TOTAL 0.2 mg/dL 0.1-1.2 (BEAKER) (test code = 377) SODIUM (BEAKER) (test 139 meq/L 135-148 code = 381) POTASSIUM (BEAKER) 3.8 meq/L 3.6-5.5 (test code = 379) CHLORIDE (BEAKER) 103 meq/L 98-106 (test code = 382) CO2 (BEAKER) (test 20 meq/L 20-29 code = 355) BLOOD UREA NITROGEN 18 mg/dL 10-26 (BEAKER) (test code = 354) CREATININE (BEAKER) 1.01 mg/dL 0.50-1.20 (test code = 358) GLUCOSE RANDOM 103 mg/dL 70-110 (BEAKER) (test code = 652) CALCIUM (BEAKER) 9.9 mg/dL 8.5-10.5 (test code = 697) AST (SGOT) (BEAKER) 39 U/L 5-40 (test code = 353) ALT (SGPT) (BEAKER) 50 U/L 5-50 (test code = 347) EGFR (BEAKER) (test 59 mL/min/1.73 ESTIMA SOBIA GFR IS code = 1092) sq m NOT ACCURATE CREATININE CLEARANCE IN PREDICTING GLOMERULAR FILTRATION RATE . ESTIMATED GFR I S NOT APPLICABLE FOR DIALYSIS PATIEN TS. B-TYPE NATRIURETIC FACTOR (BNP)2018-12-08 04:19:00 Test Item Value Reference Range Interpretation Comments B-TYPE NATRIURETIC PEPTIDE (BEAKER) 8 pg/mL 0-100 (test code = 700) LACTIC ACID, [id number] 04:13:00 Test Item Value Reference Range Interpretation Comments LACTATE BLOOD VENOUS (2) (BEAKER) 2.7 mmol/L 0.5-2.0 HH (test code = 2872) HCG, SERUM, [id number] 04:11:00 Test Item Value Reference Range Interpretation Comments TEST SERUM (BEAKER) (test Negative code = 584) U/S, ABDOMINAL, [id number] 03:58:00Abdomen limited area? Add comment if clarification is needed.->Gall BladderReason for exam:->ABDOMINAL PAINShould this be performed at the bedside?->YesFINAL REPORT EXAMINATION: RIGHT UPPER QUADRANT ABDOMINAL ULTRASOUND CLINICAL IND ICATION: Right quadrant abdominal pain. FINDINGS: Compared with chest CT 12/03/2018. The examination was limited by the patient's body habitus as well as shortness of breath during the examination. The liver measures 13 cm in length. The liver demonstrates mild increased echogenicity suggesting a component of fatty infiltration. No evidence of intrahepatic biliary dilatation. The common bile duct, pancreas and aorta are obscured by overlying bowel gas. The gallbladder diameter measures 4 cm. No evidence of gallbladder wall thickening, pericholecystic edema, Gonzalez sign or cholelithiasis. The right kidney measures 10 x 3 x 5 cm. No evidence of right-sided renal obstruction or nephrolithiasis. No evidence of intra-abdominal free fluid or right-sided pleural effusion. Visualized segments of the main portal vein, IVC, hepatic veins are unremarkable. IMPRESSION: Limited study. No definite acute sonographic process. Pancreatic duct, common bile duct and aorta obscured by overlying bowel gas. If there is persistent clinical concern, consider CT. Signed: Robin Wood MDReport Verified Date/Time: 12/08/2018 03:58:52 Reading Location: [address] Reading Room KETONE, [id number] 03:51:00 Test Item Value Reference Range Interpretation Comments KETONES, BLOOD (BEAKER) (test code 0.6 mmol/L <0.4 H = 1103) RAD, CHEST, 1 VIEW, NON [id number] 03:05:00Reason for exam:->right chest painIs the patient ?->UnknownShould this be performed atthe bedside?->YesFINAL REPORT EXAMINATION: AP PORTABLE CHEST RADIOGRAPH CLINICAL INDICATION: Right-sided chest pain IMPRESSION: Compared with 12/03/2018 Although the overall aeration of the right lung has improved in the interval, scattered reticulonodular opacities persist. Findings may reflect a r esolving pneumonia. Residual or recurrent infection cannot be excluded. No definite evidence of new lung consolidation. Stable small reticulonodular opacities are also noted in the left lung. The heartsize is at the upper limit of normal. Mediastinal contours are unchanged. No evidence of a large pleural effusion, pneumothorax or acute osseous abnormality. Signed: Robin Wood MDReport Verified Date/Time: 12/08/2018 03:05:52 Reading Location: [address] Reading Room BLOOD [id number] 10:01:00 Test Item Value Reference Range Interpretation Comments CULTURE (BEAKER) (test No growth in 5 days code = 1095) BLOOD [id number] 10:01:00 Test Item Value Reference Range Interpretation Comments CULTURE (BEAKER) (test No growth in 5 days code = 1095) BASIC METABOLIC [id number] 05:10:00 Test Item Value Reference Range Interpretation Comments SODIUM (BEAKER) 140 meq/L 135-148 (test code = 381) POTASSIUM (BEAKER) 4.4 meq/L 3.6-5.5 (test code = 379) CHLORIDE (BEAKER) 103 meq/L 98-106 (test code = 382) CO2 (BEAKER) (test 27 meq/L 20-29 code = 355) BLOOD UREA NITROGEN 12 mg/dL 10-26 (BEAKER) (test code = 354) CREATININE (BEAKER) 0.85 mg/dL 0.50-1.20 (test code = 358) GLUCOSE RANDOM 85 mg/dL 70-110 (BEAKER) (test code = 652) CALCIUM (BEAKER) 9.2 mg/dL 8.5-10.5 (test code = 697) EGFR (BEAKER) (test 71 mL/min/1.73 ESTIMA SOBIA GFR IS code = 1092) sq m NOT ACCURATE CREATININE CLEARANCE IN PREDICTING GLOMERULAR FILTRATION RATE . ESTIMATED GFR I S NOT APPLICABLE FOR DIALYSIS PATIEN TS. CBC W/PLT COUNT & AUTO [id number] 04:40:00 Test Item Value Reference Range Interpretation Comments WHITE BLOOD CELL COUNT (BEAKER) 7.3 K/ L 4.0-10.0 (test code = 775) RED BLOOD CELL COUNT (BEAKER) 3.62 M/ L 4.00-5.00 L (test code = 761) HEMOGLOBIN (BEAKER) (test code = 8.8 GM/DL 12.0-15.5 L 410) HEMATOCRIT (BEAKER) (test code = 29.5 % 36.0-46.0 L 411) MEAN CORPUSCULAR VOLUME (BEAKER) 81.5 fL 82.0-99.0 L (test code = 753) MEAN CORPUSCULAR HEMOGLOBIN 24.3 pg 27.0-33.0 L (BEAKER) (test code = 751) MEAN CORPUSCULAR HEMOGLOBIN CONC 29.8 GM/DL 32.0-36.0 L (BEAKER) (test code = 752) RED CELL DISTRIBUTION WIDTH 17.5 % 12.0-15.0 H (BEAKER) (test code = 412) PLATELET COUNT (BEAKER) (test 428 K/CU MM 150-430 code = 756) MEAN PLATELET VOLUME (BEAKER) 9.5 fL 6.0-11.5 (test code = 754) NUCLEATED RED BLOOD CELLS 0 /100 WBC 0-0 (BEAKER) (test code = 413) NEUTROPHILS RELATIVE PERCENT 60 % (BEAKER) (test code = 429) LYMPHOCYTES RELATIVE PERCENT 27 % (BEAKER) (test code = 430) MONOCYTES RELATIVE PERCENT 9 % (BEAKER) (test code = 431) EOSINOPHILS RELATIVE PERCENT 3 % (BEAKER) (test code = 432) BASOPHILS RELATIVE PERCENT 0 % (BEAKER) (test code = 437) NEUTROPHILS ABSOLUTE COUNT 4.38 K/ L 1.80-8.00 (BEAKER) (test code = 670) LYMPHOCYTES ABSOLUTE COUNT 1.96 K/ L 1.48-4.50 (BEAKER) (test code = 414) MONOCYTES ABSOLUTE COUNT (BEAKER) 0.62 K/ L 0.00-1.30 (test code = 415) EOSINOPHILS ABSOLUTE COUNT 0.20 K/ L 0.00-0.50 (BEAKER) (test code = 416) BASOPHILS ABSOLUTE COUNT (BEAKER) 0.03 K/ L 0.00-0.20 (test code = 417) IMMATURE GRANULOCYTES-RELATIVE 2 % 0-0 H PERCENT (BEAKER) (test code = 2801) RESPIRATORY PANEL [id number] 13:42:00 Test Item Value Reference Range Interpretation Comments HUMAN METAPNEUMOVIRUS Not detected Not detected, (BEAKER) (test code = 2683) Equivocal RHINOVIRUS (BEAKER) (test Not detected Not detected, code = 2684) Equivocal INFLUENZA A (BEAKER) (test Not detected Not detected, code = 2685) Equivocal INFLUENZA A (NO SUBTYPE) Not detected, (test code = 3606) Equivocal INFLUENZA A SUBTYPE H1 Not detected, (BEAKER) (test code = 9566) Equivocal INFLUENZA A SUBTYPE H3 Not detected, (BEAKER) (test code = 2687) Equivocal INFLUENZA A SUBTYPE H1-2009 Not detected, (BEAKER) (test code = 3198) Equivocal INFLUENZA B (BEAKER) (test Not detected Not detected, code = 2688) Equivocal RESPIRATORY SYNCYTIAL VIRUS Not detected Not detected, (BEAKER) (test code = 3199) Equivocal PARAINFLUENZA VIRUS 1 Not detected Not detected, (BEAKER) (test code = 2691) Equivocal PARAINFLUENZA VIRUS 2 Not detected Not detected, (BEAKER) (test code = 2692) Equivocal PARAINFLUENZA VIRUS 3 Not detected Not detected, (BEAKER) (test code = 2693) Equivocal PARAINFLUENZA VIRUS 4 Not detected Not detected, (BEAKER) (test code = 3200) Equivocal ADENOVIRUS (BEAKER) (test Not detected Not detected, code = 2694) Equivocal CORONAVIRUS 229E (BEAKER) Not detected Not detected, (test code = 3201) Equivocal CORONAVIRUS HKU1 (BEAKER) Not detected Not detected, (test code = 3202) Equivocal CORONAVIRUS NL63 (BEAKER) Not detected Not detected, (test code = 3203) Equivocal CORONAVIRUS OC43 (BEAKER) Not detected Not detected, (test code = 3204) Equivocal BORDETELLA PERTUSSIS Not detected Not detected, (BEAKER) (test code = 3205) Equivocal CHLAMYDOPHILA PNEUMONIAE Not detected Not detected, (BEAKER) (test code = 3206) Equivocal MYCOPLASMA PNEUMONIAE Not detected Not detected, (BEAKER) (test code = 3207) Equivocal Other viruses and bacteria not targeted by this PCR panel cannot be excluded; therefore clinical correlation and follow up of serology, culture results, and other molecular studies is required. The results are not intended to be used as the sole means for clinical diagnosis or patient management decisions. This sample was tested at the [facility] using the [employer] Respiratory Panel. It is FDA cleared and has been verified and approved by the [facility] for clinical use on nasal swab specimens. It is not FDA-cleared for use on bronchial wash/lavage samples. However, for this sample type, validation was performed and test characteristics were determined and approved, by [facility] for clinical use under the Clinical Laboratory Improvement Amendments (CLIA) of 1988 requirements. Therefore, FDA clearance isnot required. This laboratory is CLIA- certified and [employer] ([employer])-accredited to perform high complexity testing.VANCOMYCIN LEVEL, [id number] 22:15:00 Test Item Value Reference Range Interpretation Comments VANCOMYCIN TROUGH (BEAKER) (test 12.0 ug/mL 10.0-20.0 code = 522) LEGIONELLA ANTIGEN, [id number] 20:59:00 Test Item Value Reference Range Interpretation Comments L. PNEUMOPHILA Negative - see Negative fo r L. SEROGP 1 UR AG comment pneumophila (BEAKER) (test code serogrou p 1 antigen, = 1156) suggesting no r ecent or current infe ction with this serog roup. Legionellosis c annot be ruled out si nce other serogroup s and species may cau se disease. STREP PNEUMONIAE [id number] 20:59:00 Test Item Value Reference Range Interpretation Comments STREP PNEUMONIAE Presumptive negative Presumptive negative ANTIGEN (BEAKER) for pneumococcal for pneumococcal (test code = 1615) pneumonia - see pneumonia - see comment commen Presumptive negative for pneumococcal pneumonia, suggesting no current or recent pneumococcal infection. Infection due to S. pneumoniae cannot be ruled out since the antigen present in the sample may be below the detection limit of the test. CT, CHEST, WITH [id number] 14:31:00FINAL REPORT CT of the Chest dated 12/03/2018 CLINICAL INFORMATION: Pneumonia complicated / unresolved Comment: Axial images of the chest were obtained from thoracic inlet to the upper abdomen with intravenous contrast. This exam was performed according to our departmental dose-optimization program, which includes automated exposure control, adjustment of the mA and/or kV according to patient size and/or use of interactive reconstruction technique. Heart is normal in size. Great vessels are unremarkable. No adenopathy in the mediastinum or perihilar region. Trachea and mainstem bronchi are patent. Moderate hiatal hernia is present. Airspace disease is seen in the right upper, right mid, and right lower lobes suggestive of pneumonia. A 5 mm nodule is seen in the left upper lobeadjacent to the fissure. A 5 mm calcified granuloma is seen in the left upper lobe. No pleural effusion or pleural based mass seen. Visualized upper abdomen demonstrates no focal lesion. Impression: 1.Hiatal hernia.2. Airspace disease in the right lung suggesting pneumonia.3. Left upper lobe nodule. Recommend to follow-up with repeat CT of the chest in 12 months. Signed: Mark Gore MDReport Verified Date/Time: 12/03/2018 14:31:14 Reading Location: [facility] C[facility] Consult Reading Room RAD, CHEST, 2 [id number] 10:43:00Reason for exam:->Follow up pneumoniaFINAL REPORT Chest, two views History: Follow-up of pneumonia Comparison: 05/10/2012 Findings:Extensive, multilevel airspace disease throughout the right lung. Left lung is clear, other than a calcified granuloma. Normal size heart. No pleural effusion or pneumothorax. Impression:Extensive multilobar airspace disease throughout the right lung, suspicious for pneumonia. Signed: Mehdi Rubio MDReport Verified Date/Time: 12/03/2018 10:43:42 Reading Location: [facility] C013Y CT Body Reading Room BASIC METABOLIC [id number] 06:11:00 Test Item Value Reference Range Interpretation Comments SODIUM (BEAKER) 140 meq/L 135-148 (test code = 381) POTASSIUM (BEAKER) 3.8 meq/L 3.6-5.5 (test code = 379) CHLORIDE (BEAKER) 106 meq/L 98-106 (test code = 382) CO2 (BEAKER) (test 25 meq/L 20-29 code = 355) BLOOD UREA NITROGEN 11 mg/dL 10-26 (BEAKER) (test code = 354) CREATININE (BEAKER) 0.77 mg/dL 0.50-1.20 (test code = 358) GLUCOSE RANDOM 91 mg/dL 70-110 (BEAKER) (test code = 652) CALCIUM (BEAKER) 8.6 mg/dL 8.5-10.5 (test code = 697) EGFR (BEAKER) (test 80 mL/min/1.73 ESTIMA SOBIA GFR IS code = 1092) sq m NOT ACCURATE CREATININE CLEARANCE IN PREDICTING GLOMERULAR FILTRATION RATE . ESTIMATED GFR I S NOT APPLICABLE FOR DIALYSIS PATIEN TS. CBC W/PLT COUNT & AUTO [id number] 05:56:00 Test Item Value Reference Range Interpretation Comments WHITE BLOOD CELL COUNT (BEAKER) 21.2 K/ L 4.0-10.0 H (test code = 775) RED BLOOD CELL COUNT (BEAKER) 3.53 M/ L 4.00-5.00 L (test code = 761) HEMOGLOBIN (BEAKER) (test code = 8.6 GM/DL 12.0-15.5 L 410) HEMATOCRIT (BEAKER) (test code = 29.1 % 36.0-46.0 L 411) MEAN CORPUSCULAR VOLUME (BEAKER) 82.4 fL 82.0-99.0 (test code = 753) MEAN CORPUSCULAR HEMOGLOBIN 24.4 pg 27.0-33.0 L (BEAKER) (test code = 751) MEAN CORPUSCULAR HEMOGLOBIN CONC 29.6 GM/DL 32.0-36.0 L (BEAKER) (test code = 752) RED CELL DISTRIBUTION WIDTH 17.6 % 12.0-15.0 H (BEAKER) (test code = 412) PLATELET COUNT (BEAKER) (test 393 K/CU MM 150-430 code = 756) MEAN PLATELET VOLUME (BEAKER) 9.9 fL 6.0-11.5 (test code = 754) NUCLEATED RED BLOOD CELLS 0 /100 WBC 0-0 (BEAKER) (test code = 413) NEUTROPHILS RELATIVE PERCENT 84 % (BEAKER) (test code = 429) LYMPHOCYTES RELATIVE PERCENT 6 % (BEAKER) (test code = 430) MONOCYTES RELATIVE PERCENT 3 % (BEAKER) (test code = 431) EOSINOPHILS RELATIVE PERCENT 1 % (BEAKER) (test code = 432) BASOPHILS RELATIVE PERCENT 0 % (BEAKER) (test code = 437) NEUTROPHILS ABSOLUTE COUNT 17.76 K/ L 1.80-8.00 H (BEAKER) (test code = 670) LYMPHOCYTES ABSOLUTE COUNT 1.27 K/ L 1.48-4.50 L (BEAKER) (test code = 414) MONOCYTES ABSOLUTE COUNT (BEAKER) 0.55 K/ L 0.00-1.30 (test code = 415) EOSINOPHILS ABSOLUTE COUNT 0.28 K/ L 0.00-0.50 (BEAKER) (test code = 416) BASOPHILS ABSOLUTE COUNT (BEAKER) 0.04 K/ L 0.00-0.20 (test code = 417) IMMATURE GRANULOCYTES-RELATIVE 6 % 0-0 H PERCENT (BEAKER) (test code = 2801) URINALYSIS W/ [id number] 14:06:00 Test Item Value Reference Range Interpretation Comments COLOR (BEAKER) (test code = Yellow 470) CLARITY (BEAKER) (test code = Clear 469) SPECIFIC GRAVITY UA (BEAKER) <= 1.001-1.035 (test code = 468) PH UA (BEAKER) (test code = 6.0 5.0-8.0 467) PROTEIN UA (BEAKER) (test code Negative Negative = 464) GLUCOSE UA (BEAKER) (test code Negative Negative = 365) KETONES UA (BEAKER) (test code Negative Negative = 371) BILIRUBIN UA (BEAKER) (test Negative Negative code = 462) BLOOD UA (BEAKER) (test code = Negative Negative 461) NITRITE UA (BEAKER) (test code Negative Negative = 465) LEUKOCYTE ESTERASE UA (BEAKER) Negative Negative (test code = 466) UROBILINOGEN UA (BEAKER) (test 0.2 mg/dL 0.2-1.0 code = 463) BACTERIA (BEAKER) (test code = Few 517) RBC UA-MANUAL (BEAKER) (test None Seen /HPF code = 1659) WBC UA-MANUAL (BEAKER) (test <5 /HPF code = 1661) SQUAMOUS EPITHELIAL MANUAL 5-10 /HPF (BEAKER) (test code = 1663) SOURCE(BEAKER) (test code = 2795) CBC W/PLT COUNT & AUTO [id number] 07:02:00 Test Item Value Reference Range Interpretation Comments WHITE BLOOD CELL COUNT (BEAKER) 20.7 K/ L 4.0-10.0 H (test code = 775) RED BLOOD CELL COUNT (BEAKER) 3.54 M/ L 4.00-5.00 L (test code = 761) HEMOGLOBIN (BEAKER) (test code = 8.7 GM/DL 12.0-15.5 L 410) HEMATOCRIT (BEAKER) (test code = 28.9 % 36.0-46.0 L 411) MEAN CORPUSCULAR VOLUME (BEAKER) 81.6 fL 82.0-99.0 L (test code = 753) MEAN CORPUSCULAR HEMOGLOBIN 24.6 pg 27.0-33.0 L (BEAKER) (test code = 751) MEAN CORPUSCULAR HEMOGLOBIN CONC 30.1 GM/DL 32.0-36.0 L (BEAKER) (test code = 752) RED CELL DISTRIBUTION WIDTH 17.4 % 12.0-15.0 H (BEAKER) (test code = 412) PLATELET COUNT (BEAKER) (test 380 K/CU MM 150-430 code = 756) MEAN PLATELET VOLUME (BEAKER) 10.2 fL 6.0-11.5 (test code = 754) NUCLEATED RED BLOOD CELLS 0 /100 WBC 0-0 (BEAKER) (test code = 413) (MANUAL DIFFERENTIAL)2018-12-02 07:02:00 Test Item Value Reference Range Interpretation Comments NEUTROPHILS - REL (DIFF) (BEAKER) 66 % (test code = 1359) LYMPHOCYTES - REL (DIFF) (BEAKER) 5 % (test code = 1360) MONOCYTES - REL (DIFF) (BEAKER) 11 % (test code = 1361) EOSINOPHILS - REL (DIFF) (BEAKER) 2 % (test code = 1362) BANDS - REL (DIFF) (BEAKER) (test 16 % 0-10 H code = 1348) NEUTROPHILS - ABS (DIFF) (BEAKER) 13.66 K/ L 1.80-8.00 H (test code = 1365) LYMPHOCYTES - ABS (DIFF) (BEAKER) 1.04 K/ L 1.48-4.50 L (test code = 1366) MONOCYTES - ABS (DIFF) (BEAKER) 2.28 K/ L 0.00-1.30 H (test code = 1367) EOSINOPHILS - ABS (DIFF) (BEAKER) 0.41 K/ L 0.00-0.50 (test code = 1368) BANDS-ABS (DIFF) (BEAKER) (test 3.3 K/ L 0.0-0.8 H code = 1349) TOTAL COUNTED (BEAKER) (test code 100 = 1351) BANDS + SEGMENTED NEUTROPHILS 16.97 (BEAKER) (test code = 1352) WBC MORPHOLOGY (BEAKER) (test code Normal = 487) PLT MORPHOLOGY (BEAKER) (test code Normal = 486) ANISOCYTOSIS (BEAKER) (test code = 1+ few 961) TSH/FREE T4 IF [id number] 06:33:00 Test Item Value Reference Range Interpretation Comments THYROID STIMULATING HORMONE 0.58 uIU/mL 0.35-5.50 (BEAKER) (test code = 772) COMPREHENSIVE METABOLIC [id number] 06:25:00 Test Item Value Reference Range Interpretation Comments TOTAL PROTEIN 6.0 gm/dL 6.0-8.5 (BEAKER) (test code = 770) ALBUMIN (BEAKER) 3.4 g/dL 3.5-5.0 L (test code = 1145) ALKALINE PHOSPHATASE 117 U/L 30-115 H (BEAKER) (test code = 346) BILIRUBIN TOTAL 0.3 mg/dL 0.1-1.2 (BEAKER) (test code = 377) SODIUM (BEAKER) (test 138 meq/L 135-148 code = 381) POTASSIUM (BEAKER) 3.6 meq/L 3.6-5.5 (test code = 379) CHLORIDE (BEAKER) 104 meq/L 98-106 (test code = 382) CO2 (BEAKER) (test 25 meq/L 20-29 code = 355) BLOOD UREA NITROGEN 16 mg/dL 10-26 (BEAKER) (test code = 354) CREATININE (BEAKER) 0.81 mg/dL 0.50-1.20 (test code = 358) GLUCOSE RANDOM 93 mg/dL 70-110 (BEAKER) (test code = 652) CALCIUM (BEAKER) 8.2 mg/dL 8.5-10.5 L (test code = 697) AST (SGOT) (BEAKER) 19 U/L 5-40 (test code = 353) ALT (SGPT) (BEAKER) 21 U/L 5-50 (test code = 347) EGFR (BEAKER) (test 75 mL/min/1.73 ESTIMA SOBIA GFR IS code = 1092) sq m NOT ACCURATE CREATININE CLEARANCE IN PREDICTING GLOMERULAR FILTRATION RATE . ESTIMATED GFR I S NOT APPLICABLE FOR DIALYSIS PATIEN TS. LIPID [id number] 06:24:00 Test Item Value Reference Range Interpretation Comments TRIGLYCERIDES (BEAKER) (test code = 32 mg/dL 540) CHOLESTEROL (BEAKER) (test code = 107 mg/dL 631) HDL CHOLESTEROL (BEAKER) (test code 55 mg/dL = 976) LDL CHOLESTEROL CALCULATED (BEAKER) 46 mg/dL (test code = 633) Triglyceride Reference Range: Low Risk <150 Borderline 150-199 High Risk 200- 499 Very High Risk >=500Cholesterol Reference Range: Low Risk <200 Borderline 200-239 High Risk >240HDL Cholesterol Reference Range: Low Risk >=60 High Risk <40LDL Cholesterol Reference Range: Optimal <100 Near Optimal 100-129 Borderline 130-159 High 160-189 Very High >=190HEMOGLOBIN A1C 2018-12-02 06:18:00 Test Item Value Reference Range Interpretation Comments HEMOGLOBIN A1C (BEAKER) (test code = 5.0 % 4.3-6.1 368)
[2023-05-27 17:21] LABS: Absolute Lymphocytes (CBC) 1.3 K/uL (0.7-4.9); Hematocrit 39.1 % (36.0-45.0); MCV 84.3 fL (80-100); MPV 8.4 fL (7.6-11.3); Platelets 269 thou/uL (152-406); RBC Red Blood Cell Count 4.64 M/uL (3.86-4.86)
[2023-05-27 17:26] LABS: Protime INR 0.92
[2023-05-27] MEDS ORDERED: SUCRALFATE 1 GM TABLET ONE (17:40)
[2023-05-27] MEDS ORDERED: PANTOPRAZOLE 40 MG INJ ONE (17:41)
[2023-05-27] MEDS ORDERED: SIMETHICONE 80 MG TAB ONE (17:41)
--- NOTE | 2023-05-27 18:21 | RAD REPORT ---
EXAM DESCRIPTION: Diego Single View05/27/2023 5:15 pm CLINICAL HISTORY: CHEST PAIN COMPARISON: No comparisons TECHNIQUE: Portable AP view of the chest. FINDINGS: The lungs are clear. No pneumothorax or effusion. The cardiomediastinal contours are unre markable. IMPRESSION: No acute cardiopulmonary process.
[2023-05-27] MEDS ORDERED: PROMETHAZINE INJ 25 MG/ML AMP ONE (19:07)
[2023-05-27] MEDS ORDERED: NA CHLORIDE 0.9% 250 ML ONE (19:07)
[2023-05-27 19:14] LABS: Albumin 3.7 g/dL (3.4-5.0); Bilirubin Direct 0.1 mg/dL (0-0.2); Bilirubin Indirect, Calculated 0.3 mg/dL (0.2-0.8); Bilirubin Total 0.4 mg/dL (0.2-1.0); Magnesium 1.8 mg/dL (1.6-2.4); Potassium 3.7 mEq/L (3.5-5.1); Protein, Total 6.8 g/dL (6.4-8.2); Troponin High Sensitivity 5.1 pg/mL (<58.9)
--- NOTE | 2023-05-27 20:35 | RAD REPORT ---
EXAM DESCRIPTION: CT - Abdomen Pelvis W Contrast - 05/27/2023 7:48 pm CLINICAL HISTORY: sharp left shoulder pain;Abd pain COMPARISON: No comparisons TECHNIQUE: Thin cut axial CT imaging of the abdomen and pelvis was performed following intravenous a dministration of 100 mL Isovue 300. Multiplanar reformats were generated and reviewed. All CT scans are performed using dose optimization technique as appropriate and may include automated exposure control or mA/KV adjustment according to patient size. FINDINGS: No suspicious findings in the lung bases. The liver, spleen, adrenal glands, and pancreas show no suspicious findings. Gallbladder is decompres sed limiting evaluation. Symmetric renal function is seen with no hydronephrosis or suspicious renal mass. No dilated bowel loops or bowel wall thickening. Postsurgical changes of the proximal stomach. Small hiatal hernia. No free air, free fluid or inflammatory stranding. No hernia, mass or bulky lymphadeno trixie. The urinary bladder is without significant finding. No suspicious bony findings. IMPRESSION: No acute intra-abdominal process. Postsurgical changes which may relate to fundoplication, please correlate with prior surgical history . A small sliding hiatal hernia is noted.
[2023-05-27] MEDS ORDERED: KETOROLAC 30 MG/ML INJ ONE (20:36)
[2023-05-27] MEDS ORDERED: HALOPERIDOL LACT 5 MG/ML INJ ONE (20:37)
[2023-05-27] MEDS ORDERED: NA CHLORIDE 0.9% 50 ML ONE (20:38)
--- NOTE | 2023-05-27 20:40 | EDPHYS ---
Physician Documentation [facility] Name: Paola Reyes Age: 52 yrs Sex: Female : 1970 Arrival Date: 05/27/2023 Time: 16:42 Bed 17 Private MD: ED Physician Gage Rivera HPI: 05/27 17:11 This 52 yrs old Female presents to ER via Ambulatory with complaints of Chest Pain. snw 17:11 The patient or guardian reports chest pain that is located primarily in the anterior snw chest wall, left, left clavicle. Onset: 3 day(s) ago, and became worse and became persistent. The pain radiates to the left shoulder. Associated signs and symptoms: Pertinent positives: nausea. The chest pain is described as sharp, stabbing. Duration: The patient or guardian reports multiple episodes, that wax and wane. Severity of pain: At its worst the pain was severe in the emergency department the pain is unchanged. The patient has not experienced similar symptoms in the past. pt had recent colonoscopy. Pt has had three unsuccessful hiatal hernia surgeries, recent 40# wt loss. Historical: - Home Meds: 17:03 Trintellix 20 mg oral tablet daily [Active]; Rexulti 2 mg oral tablet daily [Active]; ph clonazepam 1 mg Oral Tablet,disintegrating every day at bedtime [Active]; oxcarbazepine 300 mg oral tablet once [Active]; trazodone 50 mg Oral tablet nightly [Active]; pramipexole 1 mg oral tablet 2 tabs every evening [Active]; sucralfate 1 gram Oral tablet 2 times per day [Active]; losartan 25 mg oral tablet daily [Active]; spironolactone 25 mg Oral tablet 1 tab daily [Active]; topiramate 25 mg oral Capsule, Sprinkle 2 times per day [Active]; Lomaira 8 mg oral tablet 2 tab daily [Active]; Ozempic 0.25 mg or 0.5 mg (2 mg/3 mL) subcutaneous Pen Injector 0.5 mg every 2 weeks [Active]; - PMHx: 16:52 Hernia; ld1 - PSHx: 16:52 None; ld1 - Immunization history:: Adult Immunizations up to date. - Social history:: Smoking status: Reported history of juuling and/or vaping. Patient/guardian denies using alcohol. ROS: 17:10 Constitutional: Negative for fever, chills, and weight loss, Eyes: Negative for injury, snw pain, redness, and discharge, ENT: Negative for injury, pain, and discharge, Neck: Negative for injury, pain, and swelling, 17:10 Respiratory: Negative for shortness of breath, cough, wheezing, and pleuritic chest pain, 17:10 Back: Negative for injury and pain, : Negative for injury, bleeding, discharge, and swelling, MS/Extremity: Negative for injury and deformity, Skin: Negative for injury, rash, and discoloration, Neuro: Negative for headache, weakness, numbness, tingling, and seizure, Psych: Negative for depression, anxiety, suicide ideation, homicidal ideation, and hallucinations, 17:10 Cardiovascular: Positive for chest pain, of the left shoulder, 17:10 Abdomen/GI: Positive for nausea, Exam: 17:09 Constitutional: This is a well developed, well nourished patient who is awake, alert, snw and in no acute distress. Head/Face: Normocephalic, atraumatic. Eyes: Pupils equal round and reactive to light, extra-ocular motions intact. Lids and lashes normal. Conjunctiva and sclera are non-icteric and not injected. Cornea within normal limits. Periorbital areas with no swelling, redness, or edema. ENT: Nares patent. No nasal discharge, no septal abnormalities noted. Tympanic membranes are normal and external auditory canals are clear. Oropharynx with no redness, swelling, or masses, exudates, or evidence of obstruction, uvula midline. Mucous membranes moist. Neck: Trachea midline, no thyromegaly or masses palpated, and no cervical lymphadenopathy. Supple, full range of motion without nuchal rigidity, or vertebral point tenderness. No Meningismus. Chest/axilla: Normal chest wall appearance and motion. Nontender with no deformity. No lesions are appreciated. Cardiovascular: Regular rate and rhythm with a normal S1 and S2. No gallops, murmurs, or rubs. Normal PMI, no JVD. No pulse deficits. Respiratory: Lungs have equal breath sounds bilaterally, clear to auscultation and percussion. No rales, rhonchi or wheezes noted. No increased work of breathing, no retractions or nasal flaring. Abdomen/GI: Soft, non-tender, with hyperactive bowel sounds. No distension or tympany. No guarding or rebound. No evidence of tenderness throughout. Back: No spinal tenderness. No costovertebral tenderness. Full range of motion. Skin: Warm, dry with normal turgor. Normal color with no rashes, no lesions, and no evidence of cellulitis. Neuro: Awake and alert, GCS 15, oriented to person, place, time, and situation. Cranial nerves II-XII grossly intact. Motor strength 5/5 in all extremities. Sensory grossly intact. Cerebellar exam normal. Normal gait. Psych: Awake, alert, with orientation to person, place and time. Behavior, mood, and affect are within normal limits. 17:09 Musculoskeletal/extremity: Extremities: grossly normal except: noted in the sharp left shoulder pain: Vital Signs: 16:51 BP 105 / 67; Pulse 95; Resp 18; Temp 98.2(TE); Pulse Ox 100% on R/A; Weight 68.49 kg; ld1 Height 5 ft. 1 in. ; Pain 10/10; 17:53 BP 106 / 67; Pulse 89; Resp 18; Pulse Ox 98% on R/A; ph 18:15 BP 106 / 71; Pulse 72; Resp 18; Pulse Ox 99% on R/A; ph 19:46 BP 117 / 65; Pulse 59; Resp 12; Pulse Ox 100% ; bp 21:22 BP 106 / 56; Pulse 72; Resp 14; Pulse Ox 100% ; bp 16:51 Body Mass Index 28.53 (68.49 kg, 154.94 cm) ld1 16:51 Pain Scale: Adult ld1 MDM: 16:48 Patient medically screened. snw 17:13 Differential diagnosis: abnormal EKG, acute myocardial infarction, esophagitis, snw gastritis, gastroesophageal reflux disease (GERD), hiatal hernia. HEART Score: History: Moderately Suspicious (1), ECG: Non specific repolarization disturbance / LBTB / PM (1), Age: > 45 and < 65 years (1), Risk Factors: No Risk Factors Known (0), Troponin:. Data reviewed: vital signs, nurses notes. I considered the following discharge prescriptions or medication management in the emergency department Medications were administered in the Emergency Department. See 16:58 Order name: Basic Metabolic Panel; Complete Time: 19:17 snw 05/27 16:58 Order name: CBC with Diff; Complete Time: 17:29 snw 05/27 16:58 Order name: LFT's; Complete Time: 19:17 snw 05/27 16:58 Order name: Magnesium; Complete Time: 19:17 snw 05/27 16:58 Order name: NT PRO-BNP; Complete Time: 19:17 snw 05/27 16:58 Order name: PT-INR; Complete Time: 17:29 snw 05/27 16:58 Order name: Troponin HS; Complete Time: 19:17 snw 05/27 16:58 Order name: CT Abd/Pelvis - IV Contrast Only; Complete Time: 20:39 snw 05/27 16:58 Order name: XRAY Chest (1 view); Complete Time: 18:28 w 05/27 16:58 Order name: EKG; Complete Time: 16:59 w 05/27 16:58 Order name: Cardiac monitoring; Complete Time: 17:02 w 05/27 16:58 Order name: EKG - Nurse/Tech; Complete Time: 17:10 w 05/27 16:58 Order name: IV Saline Lock; Complete Time: 17:10 w 05/27 16:58 Order name: Labs collected and sent; Complete Time: 17:10 05/27 16:58 Order name: O2 Per Protocol; Complete Time: 17:02 w 05/27 16:58 Order name: O2 Sat Monitoring; Complete Time: 17:02 snw EC:15 Rate is 88 beats/min. Rhythm is regular. QRS [place] is Normal. QRS interval is normal. T snw waves are Inverted in leads aVL, aVR, V4, V5, V6. Clinical impression: NSR w/ Non-specific ST/T Changes. Administered Medications: 17:46 Drug: Pantoprazole IVP 40 mg IVP once Route: IVP; Site: right antecubital; 20:08 Follow up: Response: No adverse reaction bp 19:03 Drug: NS 0.9% IV 250 ml IV at bolus once Route: IV; Rate: bolus; Site: right ph antecubital; 21:23 Follow up: IV Status: Completed infusion; IV Intake: 250ml bp 19:03 Drug: Promethazine IVP 12.5 mg IVP once Route: IVP; Site: right antecubital; ph 20:08 Follow up: Response: No adverse reaction bp 21:23 Follow up: Response: No adverse reaction bp 19:16 Not Given (Patient Refused): [id number] mg PO once bp 19:16 Not Given (Patient Refused): sucralfate1 grams PO once; please make slurry bp 20:34 Drug: Ketorolac IVP 15 mg IVP once Route: IVP; Site: right antecubital; bp 21:24 Follow up: Response: No adverse reaction bp 20:34 Drug: Haloperidol IVP 2.5 mg/50 mL 2.5 mg IVP once; Place patient on a monitoring coordinator bp Route: IVP; Site: right antecubital; 21:23 Follow up: Response: No adverse reaction bp Disposition: 17:54 Co-signature as Attending Physician, Gage Rivera MD I agree with the assessment and cp3 plan of care. Disposition Summary: 05/27/23 20:40 Discharge Ordered Notes: Location: Home snw Condition: Stable snw Diagnosis - Chest pain, unspecified snw - Gastritis, unspecified snw Followup: snw - With: Emergency Department - When: As needed - Reason: Worsening of condition Followup: snw - With: Private Physician - When: 1 - 2 days - Reason: Recheck today's complaints, Continuance of care, Re-evaluation by your physician Discharge Instructions: - Discharge Summary Sheet snw - Nonspecific Chest Pain, Adult snw - Gastroesophageal Reflux Disease, Adult snw Forms: - Medication Reconciliation Form snw - Thank You Letter snw - Antibiotic Education snw - Prescription Opioid Use snw - Patient Portal Instructions snw - Leadership Thank You Letter snw Prescriptions: - dicyclomine 20 mg Oral tablet - take 1 tablet ORAL route 3 times per day; 21 tablet; Refills: 0, Product snw Selection Permitted Signatures: Dispatcher [employer] Gabriela Davis FNP-C FNP-aGge Lo MD MD cp3 Nancy Reese RN RN ph Robin Ellis RN RN bp Manisha Blount RN RN ld1
--- NOTE | 2023-05-27 20:40 | ER ---
Nurse's Notes [facility] Name: Paola Reyes Age: 52 yrs Sex: Female : 1970 Arrival Date: 05/27/2023 Time: 16:42 Bed 17 Private MD: Diagnosis: Chest pain, unspecified;Gastritis, unspecified Presentation: 05/27 16:51 Chief complaint: Patient states: Intermittent chest pain X 3 days. Pt reports waking up ld1 in middle of the night to pain. 1.5 hours ago pt reports chest pain becoming severe. Coronavirus screen: At this time, the client does not indicate any symptoms associated with coronavirus-19. Ebola Screen: No symptoms or risks identified at this time. Initial Sepsis Screen: Does the patient meet any 2 criteria? No. Patient's initial sepsis screen is negative. Does the patient have a suspected source of infection? No. Patient's initial sepsis screen is negative. Risk Assessment: Do you want to hurt yourself or someone else? Patient reports no desire to harm self or others. Onset of symptoms was May 27, 2023. 16:51 Method Of Arrival: Ambulatory ld1 16:51 Acuity: NICK 3 ld1 Triage Assessment: 16:52 General: Appears in no apparent distress. uncomfortable, Behavior is cooperative, ld1 anxious. Pain: Complains of pain in chest Pain does not radiate. Pain currently is 10 out of 10 on a pain scale. Quality of pain is described as sharp, shooting, throbbing, Pain began suddenly. EENT: No signs and/or symptoms were reported regarding the EENT system. Neuro: Level of Consciousness is awake, alert, obeys commands, Oriented to person, place, time, situation. Cardiovascular: Capillary refill < 3 seconds Patient's skin is warm and dry. Rhythm is sinus rhythm. Respiratory: Airway is patent Respiratory effort is even, unlabored. GI: Abdomen is flat, non-distended. : No signs and/or symptoms were reported regarding the genitourinary system. Derm: No signs and/or symptoms reported regarding the dermatologic system. Musculoskeletal: No signs and/or symptoms reported regarding the musculoskeletal system. Historical: - Home Meds: 17:03 Trintellix 20 mg oral tablet daily [Active]; Rexulti 2 mg oral tablet daily [Active]; ph clonazepam 1 mg Oral Tablet,disintegrating every day at bedtime [Active]; oxcarbazepine 300 mg oral tablet once [Active]; trazodone 50 mg Oral tablet nightly [Active]; pramipexole 1 mg oral tablet 2 tabs every evening [Active]; sucralfate 1 gram Oral tablet 2 times per day [Active]; losartan 25 mg oral tablet daily [Active]; spironolactone 25 mg Oral tablet 1 tab daily [Active]; topiramate 25 mg oral Capsule, Sprinkle 2 times per day [Active]; Lomaira 8 mg oral tablet 2 tab daily [Active]; Ozempic 0.25 mg or 0.5 mg (2 mg/3 mL) subcutaneous Pen Injector 0.5 mg every 2 weeks [Active]; - PMHx: 16:52 Hernia; ld1 - PSHx: 16:52 None; ld1 - Immunization history:: Adult Immunizations up to date. - Social history:: Smoking status: Reported history of juuling and/or vaping. Patient/guardian denies using alcohol. Screenin:52 [facility] ED Fall Risk Assessment (Adult) History of falling in the last 3 months, ph including since admission No falls in past 3 months (0 pts) Confusion or Disorientation No (0 pts) Intoxicated or Sedated No (0 pts) Impaired Gait No (0 pts) Mobility Assist Device Used No (0 pt) Altered Elimination No (0 pt) Score/Fall Risk Level 0 - 2 = Low Risk Oriented to surroundings, Maintained a safe environment, Provided non-skid footwear, Hourly rounding (assess needs \\T\\ fall precautionary measures) done. Abuse screen: Denies threats or abuse. Denies injuries from another. Nutritional screening: No deficits noted. Tuberculosis screening: No symptoms or risk factors identified. Assessment: 17:51 General: Appears in no apparent distress. Behavior is cooperative, appropriate for age. ph Pain: Complains of pain in anterior aspect of left upper chest. Neuro: Level of Consciousness is awake, alert, obeys commands, Oriented to person, place, time, situation. Cardiovascular: Capillary refill < 3 seconds in bilateral fingers Patient's skin is warm and dry. Respiratory: Reports pain with respiration Airway is patent Respiratory effort is even, unlabored, Respiratory pattern is regular, symmetrical, Denies shortness of breath. GI: Reports nausea, Patient currently denies abdominal pain, vomiting. Derm: Skin is pink, warm \\T\\ dry. 18:13 Reassessment: Patient appears in no apparent distress at this time. Patient and/or ph family updated on plan of care and expected duration. Pain level reassessed. Patient is alert, oriented x 3, equal unlabored respirations, skin warm/dry/pink. Pt requesting pain medication, is refusing to take PO medications that have been ordered, states, " I take those at home twice a day, obviously they aren't going to help w/ my pain or they would have already.". 19:30 Reassessment: Patient appears in no apparent distress at this time. Patient is alert, bp oriented x 3, equal unlabored respirations, skin warm/dry/pink. 19:55 Reassessment: PT RETURNS FROM CT. bp 21:22 Reassessment: PT DC HOME AMBULATORY. bp Vital Signs: 16:51 BP 105 / 67; Pulse 95; Resp 18; Temp 98.2(TE); Pulse Ox 100% on R/A; Weight 68.49 kg; ld1 Height 5 ft. 1 in. ; Pain 10/10; 17:53 BP 106 / 67; Pulse 89; Resp 18; Pulse Ox 98% on R/A; ph 18:15 BP 106 / 71; Pulse 72; Resp 18; Pulse Ox 99% on R/A; ph 19:46 BP 117 / 65; Pulse 59; Resp 12; Pulse Ox 100% ; bp 21:22 BP 106 / 56; Pulse 72; Resp 14; Pulse Ox 100% ; bp 16:51 Body Mass Index 28.53 (68.49 kg, 154.94 cm) ld1 16:51 Pain Scale: Adult ld1 ED Course: 16:45 Patient arrived in ED. mg5 16:46 Gabriela Mosher FNP-C is [facility]. snw 16:46 Gage Rivera MD is Attending Physician. snw 16:52 Triage completed. ld1 16:52 Arm band placed on right wrist. ld1 16:55 Nancy Reese RN is Primary Nurse. ph 17:17 XRAY Chest (1 view) In Process Unspecified. EDMS 17:47 Patient has correct armband on for positive identification. Placed in gown. Bed in low ph position. Call light in reach. Side rails up X2. Client placed on continuous cardiac and pulse oximetry monitoring. NIBP monitoring applied. Door closed. Noise minimized. Warm blanket given. 17:52 Initial lab(s) drawn, by ED staff, sent to lab. EKG done, by ED staff, reviewed by reji STEPHENSON. Inserted saline lock: 22 gauge in right antecubital area, using aseptic technique. Blood collected. Patient maintains SpO2 saturation greater than 95% on room air. 19:49 CT Abd/Pelvis - IV Contrast Only In Process Unspecified. EDMS 21:22 No provider procedures requiring assistance completed. IV discontinued, intact, bp bleeding controlled, No redness/swelling at site. Pressure dressing applied. Administered Medications: 17:46 Drug: Pantoprazole IVP 40 mg IVP once Route: IVP; Site: right antecubital; ph 20:08 Follow up: Response: No adverse reaction bp 19:03 Drug: NS 0.9% IV 250 ml IV at bolus once Route: IV; Rate: bolus; Site: right ph antecubital; 21:23 Follow up: IV Status: Completed infusion; IV Intake: 250ml bp 19:03 Drug: Promethazine IVP 12.5 mg IVP once Route: IVP; Site: right antecubital; ph 20:08 Follow up: Response: No adverse reaction bp 21:23 Follow up: Response: No adverse reaction bp 19:16 Not Given (Patient Refused): [id number] mg PO once bp 19:16 Not Given (Patient Refused): sucralfate1 grams PO once; please make slurry bp 20:34 Drug: Ketorolac IVP 15 mg IVP once Route: IVP; Site: right antecubital; bp 21:24 Follow up: Response: No adverse reaction bp 20:34 Drug: Haloperidol IVP 2.5 mg/50 mL 2.5 mg IVP once; Place patient on a conveyor monitor bp Route: IVP; Site: right antecubital; 21:23 Follow up: Response: No adverse reaction bp Medication: 16:56 VIS not applicable for this client. ph Intake: 21:23 IV: 250ml; Total: 250ml. bp Outcome: 20:40 Discharge ordered by MD. quezada 21:22 Discharged to home ambulatory, bp 21:22 Condition: stable 21:22 Discharge instructions given to patient, Instructed on discharge instructions, follow up and referral plans. medication usage, Demonstrated understanding of instructions, follow-up care, medications, Prescriptions given X 1, 21:24 Patient left the ED. bp Signatures: Dispatcher [employer] EDMS Gabriela Mosher, RETAIL OFFICE ASSOCIATE-C RETAIL OFFICE ASSOCIATE-Csnw Nancy Reese RN RN Robin Ellis RN RN bp Manisha Blount RN RN ld1 [facility]ica Yu [facility] [place]
[2023-05-27 23:54] VITALS: TEMP 98.2
[2023-05-27 23:59] VITALS: O2SAT 100
[2023-05-28 00:16] VITALS: BP 106/56
--- NOTE | 2023-05-28 17:12 | EKG ---
Test Date: 2023-05-27 Test Time: 17:07:53 [place]: JAZMINE MEASUREMENT RESULTS: Intervals: Rate: 88 IA: 138 QRSD: 90 QT: 360 QTc: 435 [place]: P: 65 IA: 138 QRS: -3 T: 47 INTERPRETIVE STATEMENTS: Normal sinus rhythm Nonspecific T wave abnormality Abnormal ECG No previous ECG available for comparison Electronically Signed On 05-28-23 17:10:53 CDT by Reji Lau
== END 2023-05-27 21:24 | disposition home or self-care (01) ==
LOC: ER 16:42
DX: R07.89 Other chest pain (principal); K29.70 Gastritis, unspecified, without bleeding
CPT/HCPCS: 96365; 93005; 85025; 80048; 36415; 83735; 85610; 80076; 84484; 83880; 74177; 71045; 96375; 99285; 96366; Q9967; J2550; J1630; C9113; J7050